=== PATIENT | female | born 2000 | race African-American/Black ===

== ENCOUNTER 2019-09-21 13:37 | Emergency (ER) | payer OTHER ==
[~2019-09-21] VITALS: Ht 167.6 cm; Wt 87.5 kg
[2019-09-21] MEDS ORDERED: LIDOCAINE 1% SDV 5 ML VIAL DILUENT ONE (14:30)
[2019-09-21] MEDS ORDERED: AZITHROMYCIN 250 MG TAB PO ONE (14:30)
[2019-09-21] MEDS ORDERED: cefTRIAXone SOD 250 MG VIAL (J0696) IM ONE (14:30)
[2019-09-21 14:39] LABS: BASO # 0.1 10^3/uL (0.0-0.2); BASO % 0.9 % (0.0-1.0); EOS # 0.1 10^3/uL (0.0-0.5); EOS % 1.2 % (0.0-3.0); HEMATOCRIT 40.7 % (36.0-47.0); LYMPH # 1.8 10^3/uL (1.5-5.0); LYMPH % 32.2 % (24.0-44.0); MEAN CORPUSCULAR HGB CONC 31.9 g/dl (32.0-36.5); MEAN CORPUSCULAR VOLUME 93.8 fl (80.0-96.0); MONO # 0.3 10^3/uL (0.0-0.8); MONO % 5.2 % (0.0-5.0); NEUTROPHILS # 3.4 10^3/uL (1.5-8.5); NEUTROPHILS % 60.2 % (36.0-66.0); PLATELET COUNT, AUTOMATED 202 10^3/uL (150-450); RED BLOOD COUNT 4.34 10^6/uL (4.00-5.40); WHITE BLOOD COUNT 5.7 10^3/uL (4.0-10.0)
[2019-09-21 14:49] LABS: APPEARANCE, URINE CLEAR (CLEAR); BACTERIA, URINE AUTO 1+ (NEGATIVE); BILIRUBIN, URINE AUTO NEGATIVE (NEGATIVE); BLOOD, URINE BLOOD NEGATIVE (NEGATIVE); COLOR, URINE YELLOW (YELLOW); GLUCOSE, URINE (UA) AUTO NEGATIVE (NEGATIVE); KETONE, URINE AUTO NEGATIVE (NEGATIVE); LEUKOCYTE ESTERASE, URINE AUTO 1+ (NEGATIVE); NITRITE, URINE AUTO NEGATIVE (NEGATIVE); PROTEIN, URINE AUTO NEGATIVE (NEGATIVE); RBC, URINE AUTO 4 /HPF (0-3); SPECIFIC GRAVITY URINE AUTO 1.016 (1.002-1.035); SQUAMOUS EPITHELIAL CELL UR AU 1 /HPF (0-6); UROBILINOGEN, URINE AUTO 0.2 mg/dL (0.0-2.0); WBC, URINE AUTO 2 /HPF (0-3)
[2019-09-21] MEDS ORDERED: metroNIDAZOLE (FLAGYL) 500 MG TAB PO ONE (15:30)
[2019-09-21] MEDS ORDERED: MACR100C43 PO (15:54)
[2019-09-21] MEDS ORDERED: IBUPROFEN 800 MG TAB PO ONE (16:00)
[2019-09-21 16:03] VITALS: BP 140/85
[2019-09-21 16:12] LABS: CHLAMYDIA DNA AMPLIFICATION POSITIVE (NEGATIVE); GC DNA AMPLIFICATION NEGATIVE (NEGATIVE)
[2019-09-23 15:52] LABS: HEPATITIS B SURFACE ANTIBODY POSITIVE (POSITIVE)
[2019-09-23 16:02] LABS: HEPATITIS B SURFACE ANTIGEN NEGATIVE (NEGATIVE)
[2019-09-23 16:31] LABS: HEPATITIS C VIRUS ABY INDEX < 0.0 INDEX (<0.8); HIV 1&2 SCREEN CENTAUR NEGATIVE (NEGATIVE)
== END 2019-09-21 16:05 | disposition home or self-care (01) ==
LOC: M ED 13:37
DX: N39.0 Urinary tract infection, site not specified (principal); A59.01 Trichomonal vulvovaginitis; F17.210 Nicotine dependence, cigarettes, uncomplicated
CPT/HCPCS: 36415; 80047; 81001; 84702; 85025; 86706; 86780; 86803; 87210; 87340; 87389; 87661; 96372; 99284; J0696

== ENCOUNTER 2019-10-17 14:37 | Emergency (ER) | payer OTHER ==
[~2019-10-17] VITALS: Ht 167.6 cm; Wt 87.4 kg
[~2019-10-17 14:37] MED LIST: MACR100C43 PO
[2019-10-17] MEDS ORDERED: KETOROLAC 60 MG/2 ML VIAL (J1885) IM ONE (17:30)
[2019-10-17] MEDS ORDERED: ACETAMINOPHEN 325 MG TAB PO ONE (17:30)
[2019-10-17 19:24] LABS: CHLAMYDIA DNA AMPLIFICATION NEGATIVE (NEGATIVE); GC DNA AMPLIFICATION NEGATIVE (NEGATIVE)
[2019-10-17 20:32] VITALS: BP 134/88
== END 2019-10-17 20:33 | disposition home or self-care (01) ==
LOC: M ED 14:37
DX: S39.012A Strain of muscle, fascia and tendon of lower back, initial encounter (principal); X58.XXXA Exposure to other specified factors, initial encounter; Y92.89 Other specified places as the place of occurrence of the external cause; F17.210 Nicotine dependence, cigarettes, uncomplicated
CPT/HCPCS: 81001; 87661; 96372; 99283; J1885

== ENCOUNTER 2020-05-10 00:39 | Emergency (ER) | payer OTHER ==
[~2020-05-10] VITALS: Ht 167.6 cm; Wt 81.8 kg
[2020-05-10 00:40] VITALS: BP 140/82
[2020-05-10] MEDS ORDERED: NS 1,000 ML IV ONE (01:00)
[2020-05-10] MEDS ORDERED: KETOROLAC 30 MG/ML 1ML VIAL IV ONE (01:15)
[2020-05-10 01:21] LABS: BASO % 0.4 % (0.0-1.0); EOS # 0.1 10^3/uL (0.0-0.5); EOS % 0.7 % (0.0-3.0); HEMATOCRIT 41.3 % (36.0-47.0); HEMOGLOBIN 13.5 g/dl (12.0-15.5); LYMPH # 2.3 10^3/uL (1.5-5.0); LYMPH % 27.1 % (24.0-44.0); MEAN CORPUSCULAR HEMOGLOBIN 30.7 pg (27.0-33.0); MEAN CORPUSCULAR HGB CONC 32.7 g/dl (32.0-36.5); MEAN CORPUSCULAR VOLUME 93.9 fl (80.0-96.0); MONO # 0.3 10^3/uL (0.0-0.8); MONO % 3.5 % (0.0-5.0); NEUTROPHILS # 5.7 10^3/uL (1.5-8.5); NEUTROPHILS % 67.9 % (36.0-66.0); PLATELET COUNT, AUTOMATED 252 10^3/uL (150-450); WHITE BLOOD COUNT 8.4 10^3/uL (4.0-10.0)
[2020-05-10 01:49] LABS: ALBUMIN 3.8 GM/DL (3.2-5.2); ALT/SGPT 24 U/L (12-78); BILIRUBIN,DIRECT 0.2 MG/DL (0.0-0.2); BILIRUBIN,TOTAL 0.5 MG/DL (0.2-1.0); BLOOD UREA NITROGEN 12 MG/DL (7-18); CALCIUM LEVEL 9.2 MG/DL (8.5-10.1); CARBON DIOXIDE LEVEL 26 MEQ/L (21-32); CHLORIDE LEVEL 108 MEQ/L (98-107); CREATININE FOR GFR 1.05 MG/DL (0.55-1.30); GLOMERULAR FILTRATION RATE > 60.0 (>60); GLUCOSE, FASTING 85 MG/DL (70-100); LIPASE 168 U/L (73-393); POTASSIUM SERUM 4.1 MEQ/L (3.5-5.1); SODIUM LEVEL 140 MEQ/L (136-145); TOTAL PROTEIN 7.6 GM/DL (6.4-8.2)
[2020-05-10 02:04] LABS: HCG, SERUM QUALITATIVE NEGATIVE (NEGATIVE)
[2020-05-10 02:48] LABS: CHLAMYDIA DNA AMPLIFICATION NEGATIVE (NEGATIVE); GC DNA AMPLIFICATION NEGATIVE (NEGATIVE)
== END 2020-05-10 02:57 | disposition home or self-care (01) ==
LOC: M ED 00:39
DX: R10.9 Unspecified abdominal pain (principal); R11.0 Nausea; N93.9 Abnormal uterine and vaginal bleeding, unspecified; Z77.098 Contact with and (suspected) exposure to other hazardous, chiefly nonmedicinal, chemicals
CPT/HCPCS: 80048; 80076; 81001; 83690; 84703; 85025; 87086; 87661; 96374; 99283; J1885

== ENCOUNTER 2020-09-09 21:17 | Emergency (ER) | payer OTHER ==
[~2020-09-09] VITALS: Ht 167.6 cm; Wt 92.2 kg
[2020-09-10 00:04] LABS: APPEARANCE, URINE CLEAR (CLEAR); BACTERIA, URINE AUTO NEGATIVE (NEGATIVE); BILIRUBIN, URINE AUTO NEGATIVE (NEGATIVE); BLOOD, URINE BLOOD NEGATIVE (NEGATIVE); COLOR, URINE STRAW (YELLOW); GLUCOSE, URINE (UA) AUTO NEGATIVE (NEGATIVE); KETONE, URINE AUTO TRACE mg/dL (NEGATIVE); LEUKOCYTE ESTERASE, URINE AUTO NEGATIVE (NEGATIVE); NITRITE, URINE AUTO NEGATIVE (NEGATIVE); PROTEIN, URINE AUTO NEGATIVE (NEGATIVE); RBC, URINE AUTO 0 /HPF (0-3); SPECIFIC GRAVITY URINE AUTO 1.014 (1.002-1.035); SQUAMOUS EPITHELIAL CELL UR AU 0 /HPF (0-6); UROBILINOGEN, URINE AUTO 0.2 mg/dL (0.0-2.0); WBC, URINE AUTO 2 /HPF (0-3)
[2020-09-10 00:41] VITALS: BP 136/82
== END 2020-09-10 00:43 | disposition home or self-care (01) ==
LOC: M ED 21:17
DX: O26.891 Other specified pregnancy related conditions, first trimester (principal); M54.5 Low back pain; Z3A.00 Weeks of gestation of pregnancy not specified

== ENCOUNTER 2020-10-15 15:21 | Emergency (ER) | payer OTHER ==
[~2020-10-15] VITALS: Ht 167.6 cm; Wt 99.8 kg
--- OUTSIDE RECORDS SUMMARY | 2020-10-15 15:29 | CCD ---
Author Author [facility] Organization [facility] Address Unknown Phone Unavailable Care Team Providers Care Compounder [employer] Name Role Phone Philip Christianson MD Unavailable Unavailable Philip Christianson MD Unavailable Unavailable Philip Christianson MD Unavailable Unavailable Philip Christianson MD Unavailable Unavailable Philip Christianson MD Unavailable Unavailable Philip Christianson MD Unavailable Unavailable Philip Christianson MD Unavailable Unavailable Philip Christianson MD Unavailable Unavailable UNKNOWN, [facility] Unavailable Unavailable CHAITANYA CHRISTIANSON MD Unavailable Unavailable Marce AVENDANO MD Unavailable Unavailable Marce AVENDANO MD Unavailable Unavailable Marce AVENDANO MD Unavailable Unavailable Marce AVENDANO MD Unavailable Unavailable Marce AVENDANO MD Unavailable Unavailable Marce AVENDANO MD Unavailable Unavailable Marce AVENDANO MD Unavailable Unavailable Marce AVENDANO MD Unavailable Unavailable Marce AVENDANO MD Unavailable Unavailable ROMANAMarce VAZQUEZ MD Unavailable Unavailable ROMANA, L KOKI WINSTON Unavailable Unavailable ROMANAMarce VAZQUEZ MD Unavailable Unavailable ROMANAMarce VAZQUEZ MD Unavailable Unavailable ROMANAMarce VAZQUEZ MD Unavailable Unavailable ROMANAMarce VAZQUEZ MD Unavailable Unavailable ROMANAMarce VAZQUEZ KOKI MD Unavailable Unavailable ROMANAMarce VAZQUEZ MD Unavailable Unavailable ROMANA, L KOKI MD Unavailable Unavailable ROMANA L KOKI Unavailable Unavailable ROMANAMarce KOKI Unavailable Unavailable ROMANA L KOKI Unavailable Unavailable ROMANAMarce MD Unavailable Unavailable ROMANA L KOKI Unavailable Unavailable Re-disclosure Warning The records that you are about to access may contain information from federally-assisted alcohol or drug abuse programs. If such information is present, then the following federally mandated warning applies: This information has been disclosed to you from records protected by federal confidentiality rules (42 CFR part 2). The federal rules prohibit you from making any further disclosure of this information unless further disclosure is expressly permitted by the written consent of the person to whom it pertains or as otherwise permitted by 42 CFR part 2. A general authorization for the release of medical or other information is NOT sufficient for this purpose. The Federal rules restrict any use of the information to criminally investigate or prosecute any alcohol or drug abuse patient.The records that you are about to access may contain highly sensitive health information, the redisclosure of which is protected by Article 27-F of the [facility] Public Health law. If you continue you may have access to information: Regarding HIV / AIDS; Provided by facilities licensed or operated by the [facility] Office of Mental Health; or Provided by the [facility] Office for People With Developmental Disabilities. If such information is present, then the following [facility] mandated warning applies: This information has been disclosed to you from confidential records which are protected by state law. State law prohibits you from making any further disclosure of this information without the specific written consent of the person to whom it pertains, or as otherwise permitted by law. Any unauthorized further disclosure in violation of state law may result in a fine or assisted sentence or both. A general authorization for the release of medical or other information is NOT sufficient authorization for further disc losure. Encounters Encounter Providers Location Date Indications Data Source(s ) Emergency Attender: Chaitanya Christianson MDAttender: CHAITANYA CHRISTIANSON MD ER-ER 10/08/2020 03:43:00 AM EST - 10/08/2020 05:29:00 AM EST [facility] Patient discharged. Emergency Attender: KOKI AVENDANO MDConsultant: MUNDO BERMUDEZ 09/18/2020 01:52:00 PM EST - 09/18/2020 04:30:00 PM EST [facility] Patient discharged. 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 (CU RRENT) USE OF ASPIRIN Diagnosis 10/08/2020 03:43:00 AM [facility] Z3A.09 9 weeks gestation of 9 WEEKS GESTATION OF CA EGNANCY Diagnosis 10/08/2020 03:43:00 AM [facility] O20.0 Threatened THREATENED Diagnosis 0 10/08/2020 03:43:00 AM [facility] O20.9 Hemorrhage in early , unspecifi ed HEMORRHAGE IN EARLY , UNSPECIFIED Diagnosis 10/08/2020 03:43:00 AM [facility] Quentin ascencio K33011 Personal history of nicotine dependence Personal history of nicotine dependence Diagnosis 09/18/2020 01:52:00 PM [facility] Z3A01 Less than 8 weeks gestation of Less than 8 weeks gestation of Diagnosis 09/18/2020 01:52:00 PM [facility] Y77801 Other specified related condit ions, first trimester Other specified related conditions, first trimester Diagnosis 09/18/2020 01:52:00 PM [facility] Results ID Date Data Source [id number] 10/08/2020 05:11:00 AM [facility] Name Value Range Interpretation Code Description Data Chayo rce(s) Supporting Document(s) CG 890980.0 mIU/mL N [facility] GESTATIONAL AGE HCG mIU/ML0.2 - 1 WEEK 5 - 501 - 2 WEEKS 50 - 5002 - 3 WEEKS 100 - 35013 - 4 WEEKS 500 - 336608 - 5 WEEKS 1000 - 965688 - 6 WEEKS 79302 - 9894721 - 8 WEEKS 59381 - 7883318 - 3 MONTHS 99598 - 717837 ADULT MALES, AGES 19 - 67 <= 1.0NON- FEMALES, AGES 18 - 62 1 - 3 ID Date Data Source [id number] 10/08/2020 04:42:00 AM EST [facility] Name Value Range Interpretation Code Description Data Chayo rce(s) Supporting Document(s) HCG QUAL SERUM Positive Negative N [facility] ID Date Data Source [id number] 10/08/2020 04:44:00 AM EST [facility] Name Value Range Interpretation Code Description Data Chayo rce(s) Supporting Document(s) URINE COLOR Yellow [facility] UAPR Clear [facility] UGLU Negative NEGATIVE [facility] URINE BILIRUBIN [facility] Negative NEGATIVE [facility] USG 1.020 1.010-1.025 [facility] UBLO 3+ NEGATIVE [facility] UpH 5.5 5.0-8.0 [facility] UPRO Negative Negative [facility] UUB 0.2 mg/dL 0.2-1.0 [facility] UNIT Negative Negative [facility] ULEU Trace Negative [facility] ID Date Data Source [id number] 10/08/2020 04:44:00 AM EST [facility] Name Value Range Interpretation Code Description Data Chayo rce(s) Supporting Document(s) URINE RBC 11-20 RBCs/HPF NONE SEEN [facility] URINE WBC 3-5 WBCs/HPF NONE SEEN [facility] URINE BACTERIA Few NONE SEEN [facility] URINE EPI. Few NONE SEEN [facility] ID Date Data Source [id number] 10/08/2020 04:26:00 AM EST [facility] Name Value Range Interpretation Code Description Data Chayo rce(s) Supporting Document(s) WBC 10.32 x10E3/uL 4.0-10.5 [facility] l RBC 4.07 x10E6/uL 4.20-5.40 [facility] Hemoglobin 12.3 g/dL 12.0-16.0 [facility] Hematocrit 36.0 % 37.0-47.0 [facility] MCV 88.5 fL 81.0-99.0 [facility] MCH 30.2 pg 27.0-31.0 [facility] MCHC 34.2 g/dL 32.7-35.6 N [facility] RDW 12.7 % 11.5-14.0 N [facility] Platelet count 202 x10E3/uL 150-450 [facility] MPV 11.9 fl 6.9-9.5 [facility] Neutrophils 75.6 % 34-64 [facility] Lymphocytes 16.3 % 25-45 [facility] Monocytes 5.3 % 1.7-10.6 [facility] Eosinophils 1.6 % 0.4-7.0 [facility] Basophils 0.6 % 0.1-2.0 [facility] Imm. Gran. 0.6 % 0.1-2.0 [facility] Abs. Neutro. 7.81 x10E3/uL 1.2-7.6 [facility] Abs. Lymph. 1.68 x10E3/uL 1.0-3.5 [facility] Abs. Weber. 0.55 x10E3/uL 0.1-1.0 [facility] Abs. Eosin. 0.16 x10E3/uL 0.1-0.7 [facility] Abs. Baso. 0.06 x10E3/uL 0.0-0.1 [facility] Abs. Imm. Gran. 0.06 x10E3/uL 0.0-0.1 N [facility] spital ANRBC% 0 % 0 N [facility] ID Date Data Source [id number] 10/08/2020 05:29:00 AM EST [facility] Physician Taco-Agustin estrada CenterName: Devante HicksAge: 20 yrsSex: FemaleDOB: 2000MRN: [id number] Date: 10/08/2020Time: 03:43Account#: [id number] 9Private WINSTON: Out of town provider, -ED Physician Bright Christianson Summary:10/08/20 05:17Discharge OrderedLocation: Home Self Care ke3Qsdggre: new iq2Vydbtcqw: have improved id0Edaeyvusp: Improved ab0Ylisftluz- Threatened os9Dodeskna: th4- With: Private Physician- When: 2 - 3 days- Reason: Recheck today's complaints, Continuance of careDischarge Instructions:- Discharge Summary Sheet th4- , Threatened tp3Goitk:- Medication Reconciliation 4- Medication Reconciliation Form - 2nd Copy thHPI:09/2803:08 This 20 yrs old Black Female presents to ER via Private Vehicle with ow1cajrsdyxjx of Vaginal Bleeding.04:08 Patient comes the ER today for evaluation of vaginal bleeding that ht5zsogorg just prior to arrival. She describes the blood is dark.Patient is currently . She is a at approximately 9weeks. She reports that [facility] and was told everythingwas otherwise normal. 2 heartbeats were heard per the patient.Patient reports her lower back pain as well as some lower abdominalcramping. Denies any nausea or vomiting. No fever or recent illness.No recent injury or trauma. She is feeling a little short of breath.Denies any chest pain. No urinary symptoms. No diarrhea. Deniesfeeling weak or dizzy. She reports that her blood type is B+. Shedenies any other problems or any other complaints..TOOLING SPECIALIST:04:02 1, Full Term 0, Premature 0, 0, Living 0, LMP 08/08/2020Historical:- Allergies: No known Allergies;- Home Meds:1. Vitamin Oral2. Aspirin Oral- PMHx: None;- PSHx: None;- Immunization history: Flu vaccine is up to date.- Social history: Smoking status: Patient states former smoker oftoHomeAwayo. ETOH status Denies use of ETOH.- Advance Directives:: None.ROS:04:10 Constitutional: Negative for chills, fever. Eyes: Negative for acute qc8vjxcrau. ENT: Negative for nasal discharge, rhinorrhea, sinuscongestion. Neck: Negative for acute changes. Cardiovascular:Negative for chest pain. Respiratory: Positive for shortness ofbreath. Abdomen/GI: Positive for abdominal pain, abdominal cramps,Negative for nausea, vomiting, diarrhea, constipation. Back: Positivefor pain at rest. Positive for vaginal bleeding, Negative forurinary symptoms. MS/extremity: Negative for acute changes. Skin:Negative for rash. Neuro: Negative for dizziness, headache, weakness.Hematologic/Lymphatic: Positive for abnormal bleeding.Exam:04:11 Constitutional: This is a well developed, well nourished patient who th4is awake, alert, and in no acute distress. Head/Face: Normocephalic,atraumatic.04:11 Neck: External neck: is normal, ROM/movement: is normal, is supple.04:11 Cardiovascular: Rate: normal, Rhythm: regular, Heart sounds: normal,normal S1and S2, no murmur.04:11 Respiratory: the patient does not display signs of respiratorydistress, Respirations: normal, Breath sounds: are normal, clearthroughout.04:11 Abdomen/GI: Bowel sounds: normal, Palpation: abdomen is soft andnon-tender, in all quadrants.04:11 Back: pain, that is very mild, ROM is normal, CVA tenderness, isabsent.04:11 Musculoskeletal/extremity: Extremities: no acute changes.04:11 Skin: Appearance: Color: normal in color, Temperature: warm,Moisture: dry.04:11 Neuro: Orientation: is normal, Mentation: is normal.04:11 Psych: Behavior/mood is pleasant, cooperative.04:32 : Pelvic Exam: External exam: is normal, Speculum exam: scant ox2ztndragf, no cervicitis, os that is closed, bimanual exam reveals nocervical motion tenderness, os that is closed, the nurse was presentfor the exam.Vital Signs:03:50 BP 169 / 90; Pulse 72; Resp 18; Temp 98.7; Pulse Ox 98% on R/A; fwWeight 96.6 kg (M); Height 5 ft. 6 in. (167.64 cm); Pain 4/10;05:25 BP 138 / 78 RA Sitting (auto/reg); Pulse 71; Resp 16; Temp 98.4; fwPulse Ox 99% on R/A; Pain 1/10;03:50 Body Mass Index 34.37 (96.60 kg, 167.64 cm) fwMDM:03:46 Patient medically screened. th405:17 Data reviewed: vital signs, nurses notes, lab test result(s). ED rp0zkwgxy: Patient remained stable in the ER. Patient with bleeding inearly consistent with threatened miscarriage. Lab work inthe ER is all reassuring. No evidence of UTI. Quantitative hCG isover 107,000. Patient has had an ultrasound during this pregnancylast week and was found to have a viable IUP with twin gestation.Pelvic exam is reassuring. No further work-up or treatment is neededat this time. She is appropriate for discharge. She will follow upwith her TOOLING SPECIALIST. We discussed return precautions. Patient iswell-appearing, well-hydrated, not ill or toxic in any way. Bloodtype is B+..09/2802:58 Order name: CBC with diff; Complete Time: 04:32 :58 Order name: SHCG; Complete Time: ::58 Order name: UA; Complete Time: ::58 Order name: Saline Lock; Complete Time: 04::58 Order name: Set Up Pelvic Exam; Complete Time: ::58 Order name: Quantitave HCG; Complete Time: 05:12 [id number] Medications:No medications were administeredSignatures:Dispatcher [employer] Chaitanya Kim MD MD hu6LewlRashard RN RN fw Name Value Range Interpretation Code Description Data Chayo rce(s) Supporting Document(s) ID Date Data Source [id number] 10/08/2020 05:29:00 AM EST [facility] Kelly terName: Devante YanezksAge: 20 yrsSex: FemaleDOB: 2000MRN: [id number] Date: 10/08/2020Time: 03:43Account#: [id number] 9Prmalaika WINSTON: Out of town provider, -Diagnosis: Threatened abortionPresentation:09/2802:44 Presenting complaint: Patient states: "I woke up to use the bathroom fwand when I wiped there was a lot of blood dropping in the toilet Esdras am 9 weeks ". Coronavirus Screening: Have you traveledinternationally or had contact with someone that has traveled and hasbeen ill in the past 3 weeks? no Have you traveled to a location wi thwidespread or ongoing COVID-19 community spread or outside of [facility]? no Flu- like symptoms reported in the last 14 days: no. Haveyou had close contact with confirmed or suspected COVID-19 case? noHave you been diagnosed with COVID-19 in the past 30 days? no Are youcurrently on quarantine by Public Health? no. Communicable DiseaseScreen: Negative for fever>/= 100 degrees Fahrenheit. Communicabledisease screen is negative. (-) rash or unusual skin lesion (- )travel/contact with traveler (-) respiratory symptoms.03:44 Acuity: Triage 3 fw03:44 Method Of Arrival: Private Vehicle fw03:45 Acuity Assignment: Triage 3 fwTriage Assessment:03:48 General: Appears uncomfortable, well nourished, well groomed, fwBehavior is anxious, cooperative, crying, pleasant, restless. SepsisScreening: (1)Signs/symptoms infection Sepsis is not suspected. Pain:Complains of pain in lumbar area, left low back and right low backPain currently is 4 out of 10 on a pain scale. Quality of pain isdescribed as aching, Pain began 1 hour ago. PSS-3 Now I'm going toask you some questions that we ask everyone treated here, no matterwhat problem they are here for. It is part of the hospital's policyand it helps us to make sure we are not missing anything important.Over the past 2 weeks, have you felt down, depressed, or hopeless?No. Over the past 2 weeks, have had thoughts of killing yourself? No.In your lifetime, have you ever attempted to kill yourself? No. Derm:Skin is intact, Skin is pink, warm & dry. Neuro: Level ofConsciousness is awake, alert, Oriented to person, place, time.Respiratory: Airway is patent Respiratory effort is even, unlabored.GI: Reports nausea, Denies diarrhea, vomiting. : Reports vaginalbleeding that is "really dark red and enough for me to feelconcerned". Musculoskeletal: Circulation, motion, and sensationintact Range of motion intact in all extremities.TOOLING SPECIALIST:04:02 1, Full Term 0, Premature 0, 0, Living 0, LMP 08/08/2020Historical:- Allergies: No known Allergies;- Home Meds:1. Vitamin Oral2. Aspirin Oral- PMHx: None;- PSHx: None;- Immunization history: Flu vaccine is up to date.- Social history: Smoking status: Patient states former smoker oftobacco. ETOH status Denies use of ETOH.- Advance Directives:: None.Screenin:53 Abuse screen: Denies threats or abuse. Denies injuries from another. fwNutritional screening: No deficits noted. Offer of HIV testing:patient was previously offered screening. Fall Risk None identified.Assessment:03:57 Reassessment: see triage assessment. fw04:33 Reassessment: No changes from previously documented assessment. fwVital Signs:03:50 BP 169 / 90; Pulse 72; Resp 18; Temp 98.7; Pulse Ox 98% on R/A; fwWeight 96.6 kg (M); Height 5 ft. 6 in. (167.64 cm); Pain 4/10;05:25 BP 138 / 78 RA Sitting (auto/reg); Pulse 71; Resp 16; Temp 98.4; fwPulse Ox 99% on R/A; Pain 1/10;03:50 Body Mass Index 34.37 (96.60 kg, 167.64 cm) fwED Course:03:43 Patient arrived in ED. fw03:43 Out of town provider, - is Private Physician. fw03:45 Triage completed. fw03:46 Chaitanya Christianson MD is Attending Physician. th403:53 Patient has correct armband on for positive identification. Placed in fwgown. Bed in low position. Call light in reach. Side rails up X 1.Pulse ox on. NIBP on. Verbal reassurance given. Pillow given. Head ofbed elevated.04:01 Rashard Canada RN is Primary Nurse. fw04:25 Labs drawn. (by ED staff). Urine collected. Clean catch specimen. fwInserted saline lock: 20 gauge in left wrist and blood collected.05:21 No Physician assisted procedures completed. Discontinued lock intact, fwbleeding controlled, pressure dressing applied, No redness/swellingat site.Administered Medications:No medications were administeredOutcome:05:17 Discharge ordered by . th405:22 Disposition: Discharged to home ambulatory. fw05:22 Condition: stable, Condition: bncuzcjk88:22 Discharge instructions given to patient, Instructed on dischargeinstructions, follow up and referral plans. medication usage.05:22 Discharge Assessment: Patient verbalized understanding of dispositioninstructions. Patient has no functional deficits.05:29 Patient left the ED. fwSignatures:Chaitanya Christianson MD MD on7Zqxy, MAXINE Wetzel RN Name Value Range Interpretation Code Description Data Chayo rce(s) Supporting Document(s) ID Date Data Source [id number] 09/21/2020 09:58:00 [place] [address] PHONE: [phone] FAX: [phone] Name .................. : MI Zheng Acct Number.................. : [id number] ROOM. ................. : TR-02 MR Number ................... : [id number] Stay type ............. : E/R Discharge Date......... ... : 09/18/20 Admit Date .... ..... : 09/18/20 Admit Phys .................... : COONEYNORM Date of ....... : 2000 Family Phys ................... : UNKNOWN Phone .................. : [phone] Age ................................ : 20 Film# .................. .:[id number] Sex ................................. : F Unsigned transcriptions are preliminary reports and do not represent a medical or legal document [place] [id number] COMPLETE:09/18/20 19:06 BAW 1801 Reason(s): vi ability ectopic TRANSVAGINAL OBSTETRICAL ULTRASOUND: INDICATION: , viability, ectopic. FINDINGS: There are 2 anechoic structures identified within the uterus. The first is in the right of the midline and has a mean sac diameter measuring 0.8 cm. No evidence of a pole or a yolk sac is identified at this time. Number 2 is on the left side of midline and has a mean sac diameter measuring 1 cm. A yolk sac is suspected, measuring 0.3 cm. No clear evidence of a pole is identified. No free fluid is identified. There is a corpus luteum in the right ovary measuring 2.5 x 1.6 x 1.6 cm. Cervical length measures 35 mm. The gestation corresponds to approximately 5 weeks 0 days of gestation. The uterus measures 4.7 x 5.3 x 7.6 cm. The right ovary measures 3.9 x 2.8 x 3.6 cm. The left ovary measures 3.0 x 1.5 x 1.8 cm. IMPRESSION: Two anechoic structures within the endometrium. The first is to the right of midline with a mean sac diameter of 0.8 cm. The second is left of the midline, measuring 1.0 cm. The findings suggest possible early gestation of twins. Gestational age would be approximately 5 weeks 0 days. pole and cardiac activity is not identified at this time. Underlying ectopic is not excluded. Continued follow up with hCG levels and serial sonography is recommended. Examination dictated by TAJ Kent. Examination was reviewed with Bravo Sterling MD, radiologist at the time of this dictation. Electronically Reviewed and Signed By Page 1 of 2 [facility] [address] [place] [address] [place] [address] PHONE: [phone] FAX: [phone] Name .................. : MI Zheng Acct Number.................. : [id number] ROOM. ................. : TR-02 MR Number ................... : [id number] Stay type ............. : E/R Discharge Date......... ... : 09/18/20 Admit Date ......... : 09/18/20 Admit Phys .................... : COONEYNORM Date of ....... : 2000 Family Phys ................... : UNKNOWN Phone .................. : [phone] Age ................................ : 20 Film# .................. .:[id number] Sex ................................. : F Unsigned transcriptions are preliminary reports and do not represent a medical or legal document [place]AL U [id number] COMPLETE:09/18 19:06 BAW 1801 Reason(s): viability ectopic Bravo Sterling M.D. , 09/21/20 09:58, [place] Transcribe Initials: SAMAN , Transcribe Date: 09/19/20 02:55, Dictation Date: Copy for: TARA KA[facility] via fax Copy for: EMERGENCY DEPT via modem Copy for: 710 MED REC DISCHARGED Page 2 of 2 Name Value Range Interpretation Code Description Data Chayo rce(s) Supporting Document(s) ID Date Data Source [id number] 09/18/2020 01:52:00 PM EST [facility] 1 OrderSheet [facility] Emergency Department [address] [place] [address] Phone #: ext- [phone] 09/18/2020 13:40 Patient: DEVANTE STARK Sex: F : 2000 Age: 20yWEIGHT:87.5 kg (S) HEIGHT:66 inches (S) BMI:31.2ALLERGIES: NoneDIAGNOSIS: Patient currently LAB ORDERSOrder Description Priority Entered Acknowledged InitialedCBC w Diff STAT 14:09/18/2020 14:44 Maged THOMAS;Chlamydia/GC STAT 14:09/18/2020 14:44 Maged THOMAS; NOTES: urineCMP STAT 14:09/18/2020 14:44 Maged THOMAS;Culture, Urine STAT 14:09/18/2020 14:43 Maged(Urine, Clean Puneet López) TAJ;Type Rh STAT 14:09/18/2020 14:44 Maged THOMAS;Urinalysis (Clean STAT 14:09/18/2020 14:43 LoganCatch) Puneet THOMAS;Beta-HCG, Quant STAT 14:07 09/18/2020 14:44 LoganSerum Puneet THOMAS;DIAGNOSTIC STUDY ORDERSOrder Description Priority Entered Acknowledged InitialedUS OB STAT 15:10 09/18/2020 Ack'd: 15: 23 15:37 Juliocesar,TRANSVAGINAL Puneet Gandara, Kinga Donato RMargauxNMargaux KAIBAB TAJ; R.N.(IV?(No))(Oxygen?(No)) Reason for Study: viability ectopicMEDICATION/IV/DRIP/FLUID ORDERS 2 OrderSheet [facility] Emergency Department [address] [place] [address] Phone #: ext- [phone] 09/18/2020 13:40 Patient: DEVANTE STARK Sex: F : 2000 Age: 20yOrder Description Priority Entered Acknowledged InitialedGENERAL ORDERSOrder Description Priority Entered Acknowledged InitialedNPO 14:07 09/18/2020 14:43 Maged THOMAS;[Electronically signed by Julissa Bolden R.N. (16:29 09/18/2020)][Electronically signed by Puneet Mercado (21:21 09/18/2020)][Electronically locked by Julissa Bolden R.N. (16:29 09/18/2020)] Name Value Range Interpretation Code Description Data Chayo rce(s) Supporting Document(s) ID Date Data Source [id number] 09/18/2020 01:52:00 PM EST [facility] 1 Medication Reconciliation Report [facility] Emergency Department [address] [place] [address] Phone #: ext- [phone] 09/18/2020 13:40 Patient: DEVANTE STARK Sex: F : 2000 Age: 20yWeight: 87.5 kgHeight/Length: 66 in.BMI: 31.2ALLERGIES: NoneThe patient's Home Medications are listed below:NONE.The source(s) of the original Home Medication information:Not obtained.The following Medications were given to the patient in the Emergency Department:None.The following Medications were prescribed to the patient:None. Name Value Range Interpretation Code Description Data Chayo rce(s) Supporting Document(s) ID Date Data Source [id number] 09/18/2020 01:52:00 PM [place] [address] Medication Administration Record [facility] Emergency Department [address] [place] [address] Phone #: ext- [phone] 09/18/2020 13:40 Patient: DEVANTE STARK Sex: F : 2000 Age: 20yWeight: 87.5 kgHeight/Length: 66 inBMI: 31.2ALLERGIES: NoneDate/Time Medication Administered Medication Ordered Name Value Range Interpretation Code Description Data Chayo rce(s) Supporting Document(s) ID Date Data Source [id number] 09/18/2020 01:52:00 PM [place] [address] General Instructions [facility] Emergency Department [address] [place] [address] Phone #: ext [phone] 09/18/2020 13:40 Patient: DEVANTE STARK Sex: F : 2000 Age: 20yFirst trimester ; positive test in emergency department. Ultrasound was performed butcould not determine the location of the .INSTRUCTIONSWarnings: Further evaluation is necessary in order to conduct further tests. It is very important to follow upwith a healthcare provider.GENERAL WARNINGS: Return or contact your physician immediately if your condition worsens orchanges unexpectedly, if not improving as expected, or if other problems arise. Specifically return ifbleeding.Your Current Medications: .No home medication.Follow-up:Follow up with your doctor Monday. Reason for referral: evaluation and repeat Beta HCG today it was11,181, repea US when Indicated. Summary of care provided to patient.Understanding of the discharge instructions verbalized by patient. ADDITIONAL INFORMATIONPregnancy 2 General Instructions [facility] Emergency Department [address] [place] [address] Phone #: ext- [phone] 09/18/2020 13:40 Patient: DEVANTE STARK Sex: F : 2000 Age: 20yYour exam today shows that you are . symptomsDuring your body's hormones change. This causes physical and emotional changes. Thisis normal. Knowing what to expect is important for your piece of mind and so you know when to seekhelp for a problem. Here are some of the most common symptoms: Morning sickness or nausea. This can happen any time of the day or night. Tender, swollen breasts Need to urinate frequently Tiredness or fatigue Dizziness Indigestion or heartburn Food cravings or t urn-offs Constipation Emotional changes. This can range from anxiety to excitement to depression.General care for a healthy pregnancyHere are things you can do to help make sure your baby is born healthy: 3 General Instructions [facility] Emergency Department [address] [place] [address] Phone #: ext- [phone] 09/18/2020 13:40 [id number] Sex[facility] F : 2000 Age: 20y Rest when you feel tired. This is especially true in the later months of . Drink more fluids. Your body needs more fluids than you may be used to. Drink 8 to10 glasses of juice, milk, or water every day. Eat well-balanced meals. Eat at regular times to give your body enough protein. You can expect to gain about 30 pounds during the . Don't try to diet or lose weight while you are . Take a vitamin every day. This helps you meet the extra nutritional needs of . Don't take any other medicine during your unless your healthcare provider tells you to. This includes prescription medicines and those you buy over the counter. Many medicines can harm the growing baby. If you have nausea or vomiting, don't eat greasy or fried foods. Eat several smaller meals throughout the day rather than 3 large meals. If you smoke, you must stop. The nicotine you breathe in goes right to the baby. Stay away from alcohol, even in moderate amounts. Daily drinking will harm your baby and can cause permanent brain damage. Don't use recreational drugs, especially cocaine, crack, and heroin. These will harm your baby. Also avoid marijuana. If you were using recreational drugs or prescribed medicine when you found out that you were , talk with your healthcare provider about possible effects on your growing baby. If you have medical problems that you need to take medicine for, talk with your healthcare provider.Follow-up careCall your healthcare provider to arrange for care. care is important. You can seeyour family provider, a specialist (stitch separator), a midwi fe, or a primary care clinic.When to seek medical adviceCall your healthcare provider right away if any of these occur: Vaginal bleeding Pain in your belly (abdomen) or back that is moderate or severe Lots of vomiting, or you can't keep any fluids down for 6 hours 4 General Instructions [facility] Emergency Department [address] [place] [address] Phone #: ext- [phone] 09/18/2020 13:40 Patient: DEVANTE STARK Sex: F : 2000 Age: 20y Burning feeling when you urinate Headache, dizziness, or rapid weight gain Fever Vision changes or blurred vision [id number] [place] [address]. All rights reserved. This information is not intended as asubstitute for professional medical care. Always follow your healthcare professional's instructions. You have been given the following additional information: , New Dx(Electronically signed by TAJ Domingo 09/18/2020 21:21) Name Value Range Interpretation Code Description Data Chayo rce(s) Supporting Document(s) ID Date Data Source [id number] 09/18/2020 01:52:00 PM EST [facility] 1 Clinical Report - Nurses [facility] Emergency Department [address] [place] [address] Phone #: ext- [phone] 09/18/2020 13:40 Patient: DEVANTE STARK Sex: F : 2000 Age: 20yTRIAGEArrived by private vehicle. Historian: patient. Accompanied by family. ( pt is 6 weeks , nothaving any symptoms where she was having swelling of breast and other symptoms, called obbut she cannot be seen until oct).Acuity: LEVEL 4.Chief Complaint: (not having any symptoms).Alert.Onset. (3 days ago). 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 SEPSIS SCREEN NEGATIVE. No suspected or confirmedsigns of infection present. --13:50 09/18/20 Julissa Bolden R.N.13:44 09/18/20. BP: 134/81. MAP: 98. HR: 63. RR: 16. O2 saturation: 100%. Temp: 97.3 F. Pain levelnow: 0/10. --13:50 09/18/20 Julissa Bolden R.N.Weight: 87.5 kg stated. Height/Length: 66 inches Per Patient. BMI: 31.2. --13:43 09/18/20 Julissa Bolden R.N.MedicationsNone. --13:46 09/18/20 Julissa Bolden R.N.AllergiesNone. --13:46 09/18/20 Julissa Bolden R.N.PROBLEMS:Ovarian Cyst.STD - S exually Transmitted Disease. --13:47 09/18/20 Julissa Bolden R.N.HistoryPAST MEDICAL HX: Immunizations: up-to-date. Last normal menstrual period- Aug 06. Currently. confirmed with serum test. G 1. P 0. Ab 0. OB history: G 1; P 0; Ab 0.SOCIAL HX: Smoker- current status unknown (quit 6 weeks ago). Occasional alcohol use. No drug use.The patient was offered HIV testing but declined and hepatitis C testing but declined. The patient has nottraveled outside the [place]Infectious disease exposure: No infectious disease exposure. Patient is not a known carrier of hepatitis,HIV, MRSA, VRE or CRE. 2 Clinical Report - Nurses [facility] Emergency Department [address] [place] [address] Phone #: ext- [phone] 09/18/2020 13:40 Patient: DEVANTE STARK Sex: F : 2000 Age: 20y SELF HARM ASSESSMENT: Self harm assessment was performed. The patient answered "no" to the question(s) "Have you recently felt down, depressed, or hopeless?", "Do you have thoughts of harming or killing yourself?", "Do you have a plan for harming or killing yourself?", "Have you recently had thoughts about harming or killing others?", "Do you have any dangerous items in your possession?", "Have you noticed less interest or pleasure in doing things?", "Are you here because you tried to hurt yourself?" and "Have you ever tried to hurt yourself before today?". ABUSE ASSESSMENT: Abuse assessment. Abuse denied. No suspicion of abuse. No report of abuse. NUTRITIONAL RISK ASSESSMENT: The nutritional risk assessment revealed no deficiencies. FUNCTIONAL ASSESSMENT: Functional assessment: no impairments noted. LEARNING NEEDS ASSESSMENT: The learning needs assessment revealed no barriers. FALL RISK ASSESSMENT: Fall risk assessment completed. No risk factors identified. SKIN INTEGRITY ASSESSMENT: Skin integrity risk assessment completed. No skin integrity risk identified. --13:50 09/18/20 Julissa Bolden R.N. Interventions Identification band on patient. To treatment room. --13:50 09/18/20 Julissa Bolden R.N.PHYSICAL ASSESSMENTGENERAL / NEURO / PSYCH: Alert. Oriented X 4. Appears in no acute distress.HEENT: Mucous membranes are pink.RESPIRATORY: Respirations not labored. Breath sounds within normal limits.CVS: Normal heart rate and rhythm. Capillary refill less than 2 seconds.GI / : Abdomen soft and nontender. Bowel sounds within normal limits. No emesis noted. Novaginal bleeding. ( denies any cramping/bleeding).EXTREMITIES: No lower extremity edema.SKIN: Skin is warm and dry. --13:57 09/18/20 Kinga Gandara R.N.NURSING PROGRESS NOTESPatient gowned. Reassurance given. Two patient identifiers checked. Call light placed in reach. Siderails up x 2. Bed placed in lowest position. Brakes of bed on. Patient ready for evaluation. --13:511 Julissa Bolden R.N. late entry - 14:35 09/18/20. Taj edmonds. Reassurance given. Rounding: Position: states comfortable. Proximity of possessions / care items: call light within easy reach. Set expectations: advised patient of rounding protocol timing and asked if they needed anything else at this time. The patient reports no complaints and she is calm and resting quietly. Three patient identifiers 3 Clinical Report - Nurses [facility] Emergency Department [address] [place] [address] Phone #: ext- [phone] 09/18/2020 13:40 Patient: DEVANTE STARK Sex: F : 2000 Age: 20y checked. Call light placed in reach. Side rails up x 2. Bed placed in lowest position. Brakes of bed on. --15:26 09/18/20 Kinga Gandara R.N. Patient returned from sonogram by wheelchair with mask and emg technician. --15:41 09/18/20 Kinga Gandara R.N. 15:45 09/18/20. BP: 138/60. MAP: 86. HR: 62. RR: 16. O2 saturation: 99% on room air. --15:45 09/18/20 Kinga Gandara R.N.DISPOSITION / DISCHARGE No learning barriers present. Patient verbalized understanding. ( follow up with md for repeat beta). Written instructions not provided in [place]. The patient was discharged home and accompanied by family. She left ambulatory and via private vehicle. Family member driving. --16:29 09/18/20 Julissa Bolden R.N. 16:28 09/18/20. BP: 132/74. MAP: 93. HR: 60. RR: 18. O2 saturation: 99%. Temp: 98.2 F. Pain level now: 0/10. --16:29 09/18/20 Julissa Bolden R.N. Departure time: 16:29 09/18/2020. --16:29 1/8/21 Julissa Bolden R.N.Locked/Released at 09/18/2020 16:29 by Julissa Bolden R.N. Name Value Range Interpretation Code Description Data Chayo rce(s) Supporting Document(s) ID Date Data Source [id number] 09/18/2020 01:52:00 PM EST [facility] 1 Clinical Report - Physicians/Mid Levels [facility] Emergency Department [address] [place] [address] Phone #: ext- [phone] 09/18/2020 13:40 Patient: DEVANTE STARK Sex: F : 2000 Age: 20y Time Seen: 14:00 09/18/2020. Arrived- By private vehicle. Historian- patient.HISTORY OF PRESENT ILLNESS Chief Complaint: concerns. This started 2 days ago and is still present. It was gradual in onset and has been constant. No contractions, pelvic pain, vaginal bleeding or complaint of leakage of fluid. Last normal menstrual period- Aug 06. (pt is 6 weeks , not having any symptoms where she was having swelling of breast and other symptoms, called ob but she cannot be seen until oct). Similar symptoms previously. None. Recent medical care: Not recently seen/assessed.REVIEW OF SYSTEMSNo nausea, vomiting, diarrhea, black stools or bloody stools. No headache, double vision, faintingepisodes, fever or eye discomfort. No eye discharge, sore throat, cough, difficulty breathing or chest pain.No skin rash, enlarged lymph nodes, chills or joint pain.PAST HISTORYG 1; P 0. Problems: . Ovarian Cyst. STD - Sexually Transmitted Disease. Medications: None. Allergies: None.SOCIAL HISTORYFormer smoker. No alcohol use or drug use.PHYSICAL EXAMVital Signs: 09/18/2020 13:44 BP: 134/81. MAP: 98. HR: 63. RR: 16. O2 saturation: 100%. Temp: 97.3 F.Pain level now: 0/10. Have been reviewed as normal. Oxygen saturation normal. 2 Clinical Report - Physicians/Mid Levels [facility] Emergency Department [address] [place] [address] Phone #: ext- [phone] 09/18/2020 13:40 Patient: DEVANTE STARK Sex: F : 2000 Age: 20y Appearance: Alert. Oriented X3. No acute distress. HEENT: Normal external inspection. ENT: Pharynx normal. Neck: Neck supple. CVS: Heart sounds normal. Respiratory: No respiratory distress. Breath sounds normal. Abdomen: Soft and nontender. Bowel sounds normal. No mass. Back: Normal external inspection. Skin: Skin warm and dry. Normal skin color. No rash. Normal skin turgor. Extremities: No pathologic edema. Neuro: Oriented X 3.LABS, X-RAYS, AND EKGLaboratory Tests: Laboratory tests have been ordered, with results reviewed and considered in themedical decision making process. CBC w Diff: (ROOPA: 09/18/2020 14:14) ( MsgRcvd 09/18/2020 14:35) Final results Test Result Flag Units (Reference) CBC W/AUTOMATED DIFF COMPLETE BLOOD COUNT WBC 6.8 10/uL (4.2 - 11.0) RBC 4.23 10/uL (4.20 - 5.40) HEMOGLOBIN 13.0 g/dL (12.0 - 16.0) HEMATOCRIT 38.2 % (37.0 - 47.0) MCV 90.3 fL (81.0 - 101) MCH 30.7 pg (27.0 - 34.0) MCHC 34.0 g/dL (31.0 - 36.0) RDW 12.5 % (11.5 - 14.5) PLATELETS 214 10/uL (150 - 450) MPV 10.9 H fL (7.4 - 10.4) NEUT 68.3 % (37.0 - 80.0) LYMPH 22.9 L % (25.0 - 40.0) MONO 6.9 % (3.0 - 8.0) EOS 0.9 % (0.0 - 7.0) BASO 0.6 % (0.0 - 2.5) %IG 0.4 H % (0.0 - 0.0) %NRBC 0.0 % (0.0 - 0.0) #NEUT 4.64 10/uL (2.00 - 6.90) #LYMPH 1.56 10/uL (0.60 - 3.40) #MONO 0.47 10/uL (0.00 - 0.90) #EOS 0.06 10/uL (0.00 - 0.70) #BASO 0.04 10/uL (0.00 - 0.20) #IG 0.03 10/uL (0.00 - 0.10) #NRBC 0.00 10/uL (0.00 - 0.00) MANUAL DIFF SEE BELOW SEGS 74 % (37 - 80) %LYMPH 22 L % (25 - 40) %MONO 4 % (3 - 8) RBC MORPH SEE BELOW ANISO 1+ A (NORMAL: NONE { SICKLE CELL (NORMAL: NONE SEEN ) PLT EST NORMAL (NORMAL: KOKI COMMENT: 3 Clinical Report - Physicians/Mid Levels [facility] Emergency Department [address] [place] [address] Phone #: [phone] ybj- [phone] 09/18/2020 13:40 Patient: DEVANTE STARK Sex: F : 2000 Age: 20y CMP: (ROOPA: 09/18/2020 14:14) ( MsgRcvd 09/18/2020 15:09) Final results Test Result Flag Units (Reference) COMPREHENSIVE METABOLIC PANEL COMPREHENSIVE METABOLIC PANEL SODIUM 132 L mEq/L (134 - 153) POTASSIUM 4.1 mEq/L (3.6 - 5.0) CHLORIDE 100 mEq/L (98 - 107) CO2 25 MEQ/L (22 - 30) GLUCOSE 98 MG/DL (65 - 110) BUN 8 MG/DL (7 - 21) CREATININE 0.7 MG/DL (0.7 - 1.5) BUN/CREAT 11 (8 - 27) TOTAL PROTEIN 6.7 G/DL (6.3 - 8.2) ALBUMIN 4.3 G/DL (3.9 - 5.0) GLOBULIN 2.4 GM/DL (2.4 - 3.2) A/G RATIO 1.8 (0.8 - 2.0) CALCIUM 9.4 MG/DL (8.4 - 10.2) TOTAL BILI <0.7 MG/DL (0.2 - 1.3) ALKALINE PHOS 48 U/L (38 - 126) SGOT/AST 12 U/L (5 - 40) SGPT/ALT 13 U/L (7 - 56) ANION GAP 7.0 L mmol/L (8.0 - 16.0) AGE 20 yrs NON-AA GFR >60 mL/min AFR AMER GFR >60 mL/min Male GFR Interprentation 20-49 yrs >60 mL/min Wjcjrw53-00 yrs >56 mL/min Normal 60-69 yrs >49 mL/min Normal 70-79yrs>42 mL/min Normal 80 and above >35 mL/min Normal Female GFRInterpretation 20-39 yrs >60 mL/min Normal 40-49 yrs >58 mL/minNormal 50-59 yrs >51 mL/min Normal 60-69 yrs >45 mL/min Dqzgoc08-40 yrs >39 mL/min Normal 80 and above >32 mL/min NormalType Rh: (ROOPA: 09/18/2020 14:14) ( MsgRcvd 09/18/2020 15:40) Final results Test Result Flag Units (Reference) ABO GROUP B RH TYPE POSITIVE { ABO/RH REENTER B POSITIVEUrinalysis: (ROOPA: 09/18/2020 14:14) ( MsgRcvd 09/18/2020 15:57) Final results Test Result Flag Units (Reference) URINALYSIS URINALYSIS SOURCE R COLOR yellow (NORMAL: Yello CLARITY hazy (NORMAL: Clear SPEC GRAVITY 1.015 (1.001 - 1.030 pH 6 (5 - 9) GLUCOSE NORM (NORMAL: Negat BILIRUBIN NEG (NORMAL: Negat KETONE NEG (NORMAL: Negat PROTEIN NEG (NORMAL: Negat NITRITE NEG (NORMAL: Negat 4 Clinical Report - Physicians/Mid Levels [facility] Emergency Department [address] [place] [address] Phone #: ext- [phone] 09/18/2020 13:40 Patient: DEVANTE STARK Sex: F : 0 2000 Age: 20y BLOOD NEG (NORMAL: Negat LEUK EST 500 A (NORMAL: Negat UROBILINOGEN NOR (less than 1.0 MICROSCOPIC See Below WBC 3 - 5 (NORMAL: NONE RBC 1 - 3 (NORMAL: NONE EPITHELIAL MODERATE A (NORMAL: NONE BACTERIA 1+ SMALL (NORMAL: NONE Beta-HCG, Quant Serum: (ROOPA: 09/18/2020 14:14) ( MsgRcvd 09/18/2020 15:09) Final results Test Result Flag Units (Reference) HCG QUANT 58791.0 mIU/mL Interpretation: Less than 5 mU/mL: Negative 6-10 mU/mL: Borderline (suggest repeat in 48 hours) >10: Positive Approx HCG range (mU/mL) Weeks post LMP 5.4-708 mU/mL 3-4 Weeks 217-28274 mU/mL 5-6 Weeks 4059-431508 mU/mL 7-8 Weeks 21447-208952 mU/mL 9-10 Weeks 54532-33650 mU/mL 12-14 Weeks 45084-66277 mU/mL 15-16 Weeks 8240-47709 mU/mL 17-18 Weeks . Note - Tests: (OB US- 2 anechoic structures within the endometrium. First is right of midline with a mean sac diameter of 0.8 cm. Second is left of midline measuring 1.0 cm. Findings suggest possible early gestation of twins. Gestational age would be approximately 5 weeks and 0 days. pole and cardiac activity is not identified at this time. Underlying ectopic is not excluded. Continued follow-up with hCG levels and serial sonography is recommended.).PROGRESS AND PROCEDURESCourse of Care: 16:Sep 18 2020. Evaluation after observation. (Discussed US, labs and pt isagreeable with dx and tx plan. Close follow up with PB and repeat HCG levels.). Patient counseled in person regarding the patient's stable condition, test results, diagnosis and need for follow-up. Patient agrees with plan of care. 16:17 Sep 18 2020. Disposition: Discharged home in good and improved condition (16:18 Sep 18 2020).CLINICAL IMPRESSION First trimester ; positive test in emergency department. Ultrasound was performed but could not determine the location of the .INSTRUCTIONS Warnings: Further evaluation is necessary in order to conduct further tests. It is very important to follow up with a healthcare provider. GENERAL WARNINGS: Return or contact your physician immediately if your condition worsens or changes unexpectedly, if not improving as expected, or if other problems arise. Specifically return if 5 Clinical Report - Physicians/Mid Levels [facility] Emergency Department [address] [place] [address] Phone #: ext- [phone] 09/18/2020 13:40 Patient: DEVANTE STARK Sex: F : 2000 Age: 20y bleeding. Your Current Medications: . No home medication. Follow-up: Follow up with your doctor Monday. Reason for referral: evaluation and repeat Beta HCG today it was 11,181, repea US when Indicated. Summary of care provided to patient. Understanding of the discharge instructions verbalized by patient.(Electronically signed by TAJ Domingo 09/18/2020 21:21) Name Value Range Interpretation Code Description Data Chayo rce(s) Supporting Document(s) ID Date Data Source [id number] 09/22/2020 09:55:00 AM EST [facility] Name Value Range Interpretation Code Description Data Chayo rce(s) Supporting Document(s) CULTURE URINE [facility] _CULTURE URINE_$$[id number]$$[id number]$$[id number]$$[id number]$$028122$$[id number]$$[id number]$$438181$$[id number]$$ 504458$$715385$$652372$$651856$$154455$$168726$$691105$$656046$$023900$$896705$$ 228828$$802641$$097914$$237089$$699055$$[id number]$$[id number]$$[id number] -- Continued on next page --Patient: MI Zheng Order: [id number] Page 2Culture: CULTURE URINE Status: Final ====$$[id number]$$[id number] DATE/TIME: 09/22/2020 08:08Culture: CULTURE URINE Status: FinalUrine Culture,Comprehensive: D1Hcdyp urogenital flora10,000-25,000 colony forming units per mLIsolate 1 Beta hemolytic Streptococcus, group B Flag: A . . . . . . .45,000 Colonies/mLPenicillin and ampicillin are drugs of choice for treatment ofbeta-hemolytic streptococcal infections. Susceptibility testing ofpenicillins and other beta-lactam agents approved by the FDA fortreatment of beta-hemolytic streptococcal infections need not beperformed routinely because nonsusceptible isolates are extremelyrare in any beta-hemolytic streptococcus and have not been reportedfor Streptococcus pyogenes (group A). (CLSI)Beta hemolytic Streptococcus, group B Flag: AP1 Test performed by: [facility] [id number] [address] [place] [id number] [facility] [id number] Director : Tod Posey MD NPI #:[employer] : 09/[id number] REF ID Date Data Source [id number] 09/22/2020 06:15:00 AM [facility] Name Value Range Interpretation Code Description Data Chayo rce(s) Supporting Document(s) Chlamydia trachomatis rRNA [Presence] in Unspecified specimen by Probe and target amplification method Negative Negative [facility] Neisseria gonorrhoeae rRNA [Presence] in Unspecified specimen by Probe and target amplification method Negative Negative [facility] ID Date Data Source [id number] 09/18/2020 03:57:00 PM [facility] Name Value Range Interpretation Code Description Data Chayo rce(s) Supporting Document(s) URINALYSIS [facility] URINALYSIS SOURCE R [facility] COLOR yellow NORMAL: Yellow [facility] CLARITY hazy NORMAL: Clear [facility] Specific gravity of Urine by Test strip 1.015 1.001 - 1.030 [facility] pH 6 5 - [address] [facility] Glucose [Mass/volume] in Urine by Test strip NORM NORMAL: Negat [facility] Bilirubin.total [Presence] in Urine by Test strip NEG NORMAL: Negative [facility] Ketones [Presence] in Urine by Test strip NEG NORMAL: Negative [facility] Protein [Mass/volume] in Urine by Test strip NEG NORMAL: Negat [facility] Nitrite [Presence] in Urine by Test strip NEG NORMAL: Negative [facility] BLOOD NEG NORMAL: Negative [facility] Leukocyte esterase [Presence] in Urine by Test strip 500 KOKI L: Negative A [facility] Urobilinogen [Mass/volume] in Urine by Test strip NOR less concha n 1.0 mg/dL [facility] MICROSCOPIC See Below [facility] ital WBC 3 - 5 NORMAL: NONE SEEN [facility] Erythrocytes [#/volume] in Urine by Test strip 1 - 3 NORMAL: NON E SEEN [facility] EPITHELIAL MODERATE NORMAL: NONE SEEN A [facility] Bacteria [Presence] in Urine sediment by Light microscopy 1+ SMALL NORMAL: NONE SEEN [facility] ID Date Data Source [id number] 09/18/2020 03:40:00 PM [facility] Name Value Range Interpretation Code Description Data Chayo rce(s) Supporting Document(s) ABO group [Type] in Blood B [facility] Rh [Type] in Blood POSITIVE [facility] { ABO/RH REENTER B POSITIVE ID Date Data Source [id number] 09/18/2020 03:09:00 PM [facility] Name Value Range Interpretation Code Description Data Chayo rce(s) Supporting Document(s) Choriogonadotropin.intact [Units/volume] in Serum or Plasma 34984.0 mIU/mL [facility] Interpr etation: Less than 5 mU/mL: Negative 6-10 mU/mL: Borderline (suggest repeat in 48 hours) >10: Positive Approx HCG range (mU/mL) Weeks post LMP 5.4-708 mU/mL 3-4 Weeks 217-46181 mU/mL 5-6 Weeks 4059-637617 mU/mL 7-8 Weeks 93481-596309 mU/mL 9-10 Weeks 35932-44696 mU/mL 12-14 Weeks 20056-44156 mU/mL 15-16 Weeks 3354- 95913 mU/mL 17-18 Weeks ID Date Data Source [id number] 09/18/2020 03:09:00 PM EST [facility] Name Value Range Interpretation Code Description Data Chayo rce(s) Supporting Document(s) COMPREHENSIVE METABOLIC PANEL [facility] COMPREHENSIVE METABOLIC PANEL Sodium [Moles/volume] in Serum or Plasma 132 mEq/L 134 - 153 L [facility] Potassium [Moles/volume] in Serum or Plasma 4.1 mEq/L 3.6 - 5.0 [facility] Chloride [Moles/volume] in Serum or Plasma 100 mEq/L 98 - 107 [facility] Carbon dioxide, total [Moles/volume] in Serum or Plasma 25 MEQ/L 22 - 30 [facility] Glucose [Mass/volume] in Serum or Plasma 98 MG/DL 65 - 110 [facility] BUN 8 MG/DL 7 - 21 [facility] al Creatinine [Mass/volume] in Serum or Plasma 0.7 MG/DL 0.7 - 1.5 [facility] BUN/CREAT 11 8 - 27 [facility] Protein [Mass/volume] in Serum or Plasma 6.7 G/DL 6.3 - 8.2 [facility] Albumin [Mass/volume] in Serum or Plasma 4.3 G/DL 3.9 - 5.0 [facility] Globulin [Mass/volume] in Serum by calculation 2.4 GM/DL 2.4 - 3.2 [facility] A/G RATIO 1.8 0.8 - 2.0 [facility] Calcium [Mass/volume] in Serum or Plasma 9.4 MG/DL 8.4 - 10.2 [facility] Bilirubin.total [Mass/volume] in Serum or Plasma <0.7 MG/DL 0.2 - 1.3 [facility] Alkaline phosphatase [Enzymatic activity/volume] in Serum or Plasma 48 U/L 38 - 126 [facility] Aspartate aminotransferase [Enzymatic activity/volume] in Serum or Plasma 12 U/L 5 - 40 [facility] Alanine aminotransferase [Enzymatic activity/volume] in Seru m or Plasma 13 U/L 7 - 56 [facility] Anion gap 3 in Serum or Plasma 7.0 mmol/L 8.0 - 16.0 L [facility] AGE [address] [facility] NON-AA GFR >60 mL/min [facility] AFR AMER GFR >60 mL/min [facility] Male GFR In terprentation 20-49 yrs >60 mL/min Normal 50-59 yrs >56 mL/min Normal 60-69 yrs >49 mL/min Normal 70-79yrs >42 mL/min Normal 80 and above >35 mL/min Normal Female GFR Interpretation 20-39 yrs >60 mL/min Normal 40-49 yrs >58 mL/min Normal 50-59 yrs >51 mL/min Normal 60-69 yrs >45 mL/min Normal 70-79 yrs >39 mL/min Normal 80 and above >32 mL/min Normal ID Date Data Source [id number] 09/18/2020 02:34:00 PM EST [facility] Name Value Range Interpretation Code Description Data Cahyo rce(s) Supporting Document(s) CBC W/AUTOMATED DIFF [facility] COMPLETE BLOOD COUNT Leukocytes [#/volume] in Blood by Automated count 6.8 10^3/uL 4.2 - 1 1.0 [facility] Erythrocytes [#/volume] in Blood by Automated count 4.23 10^6/uL 4. 20 - 5.40 [facility] Hemoglobin [Mass/volume] in Blood 13.0 g/dL 12.0 - 16.0 [facility] Hematocrit [Volume Fraction] of Blood by Automated count 38.2 % 3 7.0 - 47.0 [facility] Erythrocyte mean corpuscular volume [Entitic volume] by Auto mated count 90.3 fL 81.0 - 101 [facility] Erythrocyte mean corpuscular hemoglobin [Entitic mass] by Automated count 30.7 pg 27.0 - 34.0 [facility] Erythrocyte mean corpuscular hemoglobin concentration [Mass/volume] by Automated count 34.0 g/dL 31.0 - 36.0 [facility] Erythrocyte distribution width [Ratio] by Automated count 12.5 % 11.5 - 14.5 [facility] Platelets [#/volume] in Blood by Automated count 214 10^3/uL 150 - 45 0 [facility] Platelet mean volume [Entitic volume] in Blood by Automated count 10.9 fL 7.4 - 10.4 H [facility] Neutrophils/100 leukocytes in Blood by Automated count 68.3 % 37. 0 - 80.0 [facility] Lymphocytes/100 leukocytes in Blood by Manual count 22.9 % 25.0 - 40.0 L [facility] Monocytes/100 leukocytes in Blood by Automated count 6.9 % 3.0 - 8.0 [facility] Eosinophils/100 leukocytes in Blood by Automated count 0.9 % 0.0 - 7.0 [facility] Basophils/100 leukocytes in Blood by Automated count 0.6 % 0.0 - 2.5 [facility] %IG 0.4 % 0.0 - 0.[address] [facility] %NRBC 0.0 % 0.0 - 0.0 [facility] al Neutrophils [#/volume] in Blood by Automated count 4.64 10^3/uL 2.00 - 6.90 [facility] Lymphocytes [#/volume] in Blood by Automated count 1.56 10^3/uL 0.60 - 3.40 [facility] Monocytes [#/volume] in Blood by Automated count 0.47 10^3/uL 0.00 - 0.90 [facility] Eosinophils [#/volume] in Blood by Automated count 0.06 10^3/uL 0.00 - 0.70 [facility] Basophils [#/volume] in Blood by Automated count 0.04 10^3/uL 0.00 - 0.20 [facility] #IG 0.03 10^3/uL 0.00 - 0.10 [facility] #NRBC 0.00 10^3/uL 0.00 - 0.00 [facility] MANUAL DIFF SEE BELOW [facility] ital Segmented neutrophils/100 leukocytes in Blood by Manual count 74 % 37 - 80 [facility] %LYMPH 22 % 25 - [address] [facility] %MONO 4 % 3 - 8 [facility] RBC MORPH SEE BELOW [facility] Anisocytosis [Presence] in Blood by Light microscopy 1+ KOKI L: NONE SEEN A [facility] { SICKLE CELL (NORMAL: NONE SEEN ) Platelet adequacy [Presence] in Blood by Light microscopy NORMAL NORMAL: NORMAL [facility] COMMENT: Procedure
--- OUTSIDE RECORDS SUMMARY | 2020-10-15 15:29 | CCD | Continuity of Care Document ---
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 Medications No medication information available. Problems No problem information available. Procedures Procedure Date Performed Status *Complete Blood Count October 08, 2020 completed Urinalysis October 08, 2020 completed Relevant Diagnostic Tests and/or Laboratory Data Laboratory Results Test Date/Time Result Interpretation Reference Range Result Co mment Performing Site Urine Color October 07, 2020 10:58pm Yellow [facility] Urine Appearance October 07, 2020 10:58pm Clear [facility] Urine Glucose October 07, 2020 10:58pm Negative NEGATIVE [facility] Urine Bilirubin Confirmation October 07, 2020 10:58pm Negative NEGATIVE [facility] Urine Ketones October 07, 2020 10:58pm Negative NEGATIVE [facility] Urine Specific [place] October 07, 2020 10:58pm 1.020 1.010-1.025 [facility] Urine Blood October 07, 2020 10:58pm 3+ NEGATIVE [facility] Urine pH October 07, 2020 10:58pm 5.5 5.0-8.0 [facility] Urine Protein October 07, 2020 10:58pm Negative Negative [facility] Urine Urobilinogen October 07, 2020 10:58pm 0.2 0.2- 1.0 [facility] Urine Nitrite October 07, 2020 10:58pm Negative Negative [facility] Urine Leukocytes October 07, 2020 10:58pm Trace Negati ve [facility] Urine RBC October 07, 2020 10:58pm 11-20 RBCs/HPF NONE SEE N [facility] Urine WBC October 07, 2020 10:58pm 3-5 WBCs/HPF NONE SEEN [facility] Urine Bacteria October 07, 2020 10:58pm Few NONE SEE N [facility] URINE EPITHELIAL October 07, 2020 10:58pm Few NONE S EEN [facility] Serum HCG, Qualitative October 07, 2020 11:10pm Positive Negative [facility] Free Beta-Human Chorionic Gonadotro October 07, 2020 11:10pm 587206 .0 GESTATIONAL AGE HCG mIU/ML0.2 - 1 WEEK 5 - 501 - 2 WEEKS 50 - 5002 - 3 WEEKS 100 - 76922 - 4 WEEKS 500 - 128056 - 5 WEEKS 1000 - 372785 - 6 WEEKS 58360 - 3419793 - 8 WEEKS 55312 - 3836934 - 3 MONTHS 05659 - 442220 ADULT MALES, AGES 19 - 67 <= 1.0NON- FEMALES, AGES 18 - 62 1 - 3 [facility] White Blood Count October 07, 2020 10:58pm 10.32 4.0-1 0.5 [facility] Red Blood Count October 07, 2020 10:58pm 4.07 4.20-5. 40 [facility] Hemoglobin October 07, 2020 10:58pm 12.3 12.0-16.0 [facility] Hematocrit October 07, 2020 10:58pm 36.0 37.0-47.0 [facility] Mean Corpuscular Volume October 07, 2020 10:58pm 88.5 81.0-99.0 [facility] Mean Corpuscular Hemoglobin October 07, 2020 10:58pm 30.2 27.0-31.0 [facility] Mean Corpuscular Hemoglobin Concent October 07, 2020 10:58pm 34.2 32.7-35.6 [facility] Red Cell Distribution Width October 07, 2020 10:58pm 12.7 11.5-14.0 [facility] Platelet Count October 07, 2020 10:58pm 202 150-450 [facility] Mean Platelet Volume October 07, 2020 10:58pm 11.9 6. 9-9.5 [facility] Neutrophils (%) (Auto) October 07, 2020 10:58pm 75.6 34-64 [facility] Lymphocytes (%) (Auto) October 07, 2020 10:58pm 16.3 25-45 [facility] Monocytes (%) (Auto) October 07, 2020 10:58pm 5.3 1. 7-10.6 [facility] Eosinophils (%) (Auto) October 07, 2020 10:58pm 1.6 0.4-7.0 [facility] Basophils (%) (Auto) October 07, 2020 10:58pm 0.6 0. 1-2.0 [facility] Immature Granulocyte % (Auto) October 07, 2020 10:58pm 0.6 0.1-2.0 [facility] Absolute Neutrophils (auto) October 07, 2020 10:58pm 7.81 1.2-7.6 [facility] Absolute Lymphocytes (auto) October 07, 2020 10:58pm 1.68 1.0-3.5 [facility] Absolute Monocytes (auto) October 07, 2020 10:58pm 0.55 0.1-1.0 [facility] Absolute Eosinophils (auto) October 07, 2020 10:58pm 0.16 0.1-0.7 [facility] Absolute Basophils (auto) October 07, 2020 10:58pm 0.06 0.0-0.1 [facility] Absolute Immature Granulocyte (auto October 07, 2020 10:58pm 0.06 0.0-0.1 [facility] Nucleated Red Blood Cells % (auto) October 07, 2020 10:58pm 0 0 [facility] Health Concerns No known health concerns documented Chief Complaint and Reason for Visit Reason for Visit VAGINAL BLEEDING-9 WEEKS PRE GNANT Encounters Encounter Location(s) Arrival/Admit Date Discharge/Depart Date Provider(s) Departed Emergency [facility] October 07, 2020 10:43pm October 08, 2020 12:29am CHAITANYA ONTIVEORS MD Assessments No Assessments Information Available Functional Status No Functional Status information available Goals No Goals Information Available Immunizations No Immunization Information Available Mental Status No Mental Status Information Available Medical Equipment No Medical Equipment Information available Insurance Providers Guarantor DEVANTE STARK Address [address] [place] [address] Contact Info. Home Phone: Payer Policy Id Coverage Id Subscriber's Name Subscriber Id Effect eliezer Date Expiration Date [facility] [id number] DEVANTE STARK Social History Assigned Sex Female Vital Signs No vital signs result information available.
--- OUTSIDE RECORDS SUMMARY | 2020-10-15 16:32 | CCD ---
Author Author [facility] Organization [facility] Address Unknown Phone Unavailable Care Team Providers Care Incubator Machine Operator Name Role Phone Philip Christianson MD Unavailable [...] is protected by Article 27-F of the [facility] Public Health law. If you continue you may have access to information: Regarding HIV / AIDS; Provided by facilities licensed or operated by the [facility] Office of Mental Health; or Provided by the [facility] Office for People With Developmental Disabilities. If such information is present, then the following [facility] mandated warning applies: This information has [...] law may result in a fine or nursing home sentence or both. A general authorization for [...] PM EST - 09/18/2020 04:30:00 PM EST [facility] Patient discharged. Insurance Providers Payer name Policy type / Coverage type Policy ID Covered democrat ID Covered democrat's relationship to guerin Policy Guerin Plan Information [facility] [id number] [facility] O/P [id number] 18 [id number] [facility] ACTIVE DUTY [id number] Problems, Conditions, and Diagnoses Code Display Name Description Problem Type Effective Dates Data Source(s) Z87.891 Personal history of nicotine dependence PERSONAL HISTORY OF NICOTINE DEPENDENCE Diagnosis 10/08/2020 03:43:00 AM [facility] ascencio 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 HALF-WAY (CU RRENT) USE OF ASPIRIN Diagnosis 10/08/2020 03:43:00 AM [facility] Z3A.09 9 weeks gestation of 9 WEEKS GESTATION OF IN EGNANCY Diagnosis 10/08/2020 03:43:00 AM [facility] O20.0 Threatened THREATENED Diagnosis 0 10/08/2020 03:43:00 AM [facility] O20.9 Hemorrhage in early , unspecifi ed HEMORRHAGE IN EARLY , UNSPECIFIED Diagnosis 10/08/2020 03:43:00 AM [facility] Quentin ascencio [id number] Personal history of nicotine dependence Personal history of nicotine dependence Diagnosis 09/18/2020 01:52:00 PM [facility] Z3A01 Less than 8 weeks gestation of Less than 8 weeks gestation of Diagnosis 09/18/2020 01:52:00 PM [facility] C65772 Other specified related condit ions, first trimester Other specified related conditions, first trimester Diagnosis 09/18/2020 01:52:00 PM [facility] Results ID Date Data Source [id number] 10/08/2020 05:11:00 AM [facility] Name Value Range Interpretation Code Description Data Chayo rce(s) Supporting Document(s) CG 839796.0 mIU/mL [facility] GESTATIONAL AGE HCG mIU/ML0.2 - 1 WEEK 5 - 501 - 2 WEEKS 50 - 5002 - 3 WEEKS 100 - 46318 - 4 WEEKS 500 - 527825 - 5 WEEKS 1000 - 557885 - 6 WEEKS 92462 - 3609713 - 8 WEEKS 78411 - 9599410 - 3 MONTHS 30021 - 694318 ADULT MALES, AGES 19 - 67 <= 1.0NON- FEMALES, AGES 18 - 62 1 - 3 ID Date Data Source [id number] 10/08/2020 04:42:00 AM EST [facility] Name Value Range Interpretation Code Description Data Chayo rce(s) Supporting Document(s) HCG QUAL SERUM Positive Negative N [facility] l ID Date Data Source [id number] 10/08/2020 04:44:00 AM EST [facility] Name Value Range Interpretation Code Description Data Chayo rce(s) Supporting Document(s) URINE COLOR [facility] UAPR [facility] UGLU Negative NEGATIVE [facility]IL[facility]UBIN [facility] NE[facility] USG 1.020 1.010-1.025 [facility] UBLO 3+ NEGATIVE [facility] UpH 5.5 5.0-8.0 [facility] UPRO Negative Negative [facility] UUB 0.2 mg/dL 0.2-1.0 [facility] UNIT Negative Negative [facility] ULEU Trace Negative [facility] ID Date Data Source [id number] 10/08/2020 04:44:00 AM EST [facility] Name Value Range Interpretation Code Description Data Chayo rce(s) Supporting Document(s) URINE RBC 11-20 RBCs/HPF NONE SEEN [facility] URINE WBC 3-5 WBCs/HPF NONE [facility] URINE BACTERIA Few NONE SEEN [facility] URINE EPI. Few NONE SEEN [facility] ID Date Data Source [id number] 10/08/2020 04:26:00 AM EST [facility] Name Value Range Interpretation Code Description Data Chayo rce(s) Supporting Document(s) WBC 10.32 x10E3/uL 4.0-10.5 [facility] l RBC 4.07 x10E6/uL 4.20-5.40 [facility] Hemoglobin 12.3 g/dL 12.0-16.0 [facility] Hematocrit 36.0 % 37.0-47.0 [facility] MCV 88.5 fL 81.0-99.0 [facility] MCH 30.2 pg 27.0-31.0 [facility] MCHC 34.2 g/dL 32.7-35.6 N [facility] RDW 12.7 % 11.5-14.0 N [facility] Platelet count 202 x10E3/uL 150-450 [facility] MPV 11.9 fl 6.9-9.5 H [facility] Neutrophils 75.6 % 34-64 H [facility] Lymphocytes 16.3 % 25-45 L [facility] Monocytes 5.3 % 1.7-10.6 N [facility] Eosinophils 1.6 % 0.4-7.0 N [facility] Basophils 0.6 % 0.1-2.0 N [facility] Imm. Gran. 0.6 % 0.1-2.0 N [facility] Abs. Neutro. 7.81 x10E3/uL 1.2-7.6 H [facility] Abs. Lymph. 1.68 x10E3/uL 1.0-3.5 [facility] Abs. Pope. 0.55 x10E3/uL 0.1-1.0 [facility] Abs. Eosin. 0.16 x10E3/uL 0.1-0.7 [facility] Abs. Baso. 0.06 x10E3/uL 0.0-0.1 [facility] Abs. Imm. Gran. 0.06 x10E3/uL 0.0-0.1 N [facility] spital ANRBC% 0 % 0 N [facility] ID Date Data Source [id number] 10/08/2020 05:29:00 AM EST [facility] Physician Taco-Agustin estrada CenterName: Devante HicksAge: 20 yrsSex: FemaleDOB: 2000MRN: [id number] Date: 10/08/2020Time: 03:43Account#: [id number] WINSTON: Out of town provider, -ED Physician Bright Christianson Summary:10/08/20 05:17Discharge OrderedLocation: Home Self Care kn2Rlkjobw: new ev9Zyoiwcjv: have improved xd5Osyvydczc: Improved ak6Balzaqtyw- Threatened so2Cbvkzhlq: th4- With: Private Physician- When: 2 - 3 days- Reason: Recheck today's complaints, Continuance of careDischarge Instructions:- Discharge Summary Sheet th4- , Threatened zi5Uavoe:- Medication Reconciliation 4- Medication Reconciliation Form - 2nd Copy thHPI:09/2803:08 This 20 yrs old Black Female presents to ER via Private Vehicle with ry3nipgsqsmnf of Vaginal Bleeding.04:08 Patient comes the ER today for evaluation of vaginal bleeding that id7hinpqwb just prior to arrival. She describes the blood is dark.Patient is currently . She is a at approximately 9weeks. She reports that [facility] [...] Shedenies any other problems or any other complaints..PRESS MANAGER:04:02 1, Full Term 0, Premature 0, 0, Living 0, LMP 08/08/2020Historical:- Allergies: No known Allergies;- Home Meds:1. Vitamin Oral2. 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 ETOH status Denies use of ETOH.- Advance Directives:: None.ROS:04:10 Constitutional: Negative for chills, fever. Eyes: Negative for acute cz5jclduwu. ENT: Negative for nasal discharge, rhinorrhea, sinuscongestion. [...] External exam: is normal, Speculum exam: scant lq4qspeoiaa, no cervicitis, os that is closed, bimanual [...] signs, nurses notes, lab test result(s). ED mm1wjasmg: Patient remained stable in the ER. Patient [...] for discharge. She will follow upwith her PRESS MANAGER. We discussed return precautions. Patient iswell-appearing, well-hydrated, not ill or toxic in any way. Bloodtype is B+..09/2802:58 Order name: CBC with diff; Complete Time: 04:32 :58 Order name: SHCG; Complete Time: ::58 Order name: UA; Complete Time: ::58 Order name: Saline Lock; Complete Time: 04::58 Order name: Set Up Pelvic Exam; Complete Time: ::58 Order name: Quantitave HCG; Complete Time: 05:12 zv6Snirvlnpi Medications:No medications were administeredSignatures:Dispatcher [employer] Chaitanya Kim MD MD uw8BulzRashard RN RN fw Name Value Range Interpretation Code Description Data Chayo rce(s) Supporting Document(s) ID Date Data Source [id number] 10/08/2020 05:29:00 AM EST [facility] Kelly terName: Devante YanezksAge: 20 yrsSex: FemaleDOB: 2000MRN: [id number] Date: 10/08/2020Time: 03:43Account#: [id number] 9Prmalaika WINSTON: Out of town provider, -Diagnosis: [...] ongoing COVID-19 community spread or outside of [facility]? no Flu- like symptoms reported in the [...] sensationintact Range of motion intact in all extremities.PRESS MANAGER:04:02 1, Full Term 0, Premature 0, 0, [...] is Private Physician. fw03:45 Triage completed. fw03:46 Chaitnaya Christianson MD is Attending Physician. th403:53 Patient [...] to home ambulatory. fw05:22 Condition: stable, Condition: izsizcqg90:22 Discharge instructions given to patient, Instructed on dischargeinstructions, follow up and referral plans. medication usage.05:22 Discharge Assessment: Patient verbalized understanding of dispositioninstructions. Patient has no functional deficits.05:29 Patient left the ED. fwSignatures:Chaitanya Christianson MD MD wa2Vvbn, MAXINE Wetzel RN Name Value Range Interpretation Code Description Data Chayo rce(s) Supporting Document(s) ID Date Data Source [id number] 09/21/2020 09:58:00 [place] [address] PHONE: [phone] FAX: [phone] Name .................. : MI Zheng Acct Number.................. : [id number] ROOM. ................. : TR-02 MR Number ................... : [id number] Stay type ............. : E/R Discharge Date......... ... : 09/18/20 Admit Date .... ..... : 09/18/20 Admit Phys .................... : COONEYNORM Date of ....... : 2000 Family Phys ................... : UNKNOWN Phone .................. : [phone] Age ................................ : 20 Film# .................. .:[id number] Sex ................................. : F Unsigned transcriptions are preliminary reports and do not represent a medical or [place] [id number] COMPLETE:09/18/20 19:06 BAW 1801 Reason(s): vi ability [...] and Signed By Page [address] [facility] [address] [place] [address] [place] [address] PHONE: [phone] FAX: [phone] Name .................. : MI Zheng Acct Number.................. : [id number] ROOM. ................. : TR-02 MR Number ................... : [id number] Stay type ............. : E/R Discharge Date......... ... : 09/18/20 Admit Date ......... : 09/18/20 Admit Phys .................... : COONEYNORM Date of ....... : 2000 Family Phys ................... : UNKNOWN Phone .................. : [phone] Age ................................ : 20 Film# .................. .:[id number] Sex ................................. : F Unsigned transcriptions are preliminary reports and do not represent a medical or legal [place] [id number] COMPLETE:09/18 19:06 BAW 1801 Reason(s): viability ectopic Bravo Sterling M.D. , 09/21/20 09:58, [place] Transcribe Initials: SAMAN , Transcribe Date: 09/19/20 02:55, Dictation Date: Copy for: TARA KAUR via fax Copy for: EMERGENCY DEPT via modem Copy for: 710 MED REC DISCHARGED Page 2 of 2 Name Value Range Interpretation Code Description Data Chayo rce(s) Supporting Document(s) ID Date Data Source [id number] 09/18/2020 01:52:00 PM EST [facility] 1 OrderSheet [facility] Emergency Department [address] [place] [address] Phone #: ext- [phone] 09/18/2020 13:40 Patient: [...] 15:37 Juliocesar,TRANSVAGINAL Puneet Gandara, Kinga Donato RMargauxNMargaux ONEIDA TAJ; R.N.(IV?(No))(Oxygen?(No)) Reason for Study: viability ectopicMEDICATION/IV/DRIP/FLUID ORDERS 2 OrderSheet [facility] Emergency Department [address] [place] [address] Phone #: ext- [phone] 09/18/2020 13:40 Patient: [...] rce(s) Supporting Document(s) ID Date Data Source [id number] 09/18/2020 01:52:00 PM EST [facility] 1 Medication Reconciliation Report [facility] Emergency Department [address] [place] [address] Phone #: ext- [phone] 09/18/2020 13:40 Patient: [...] rce(s) Supporting Document(s) ID Date Data Source [id number] 09/18/2020 01:52:00 PM [place] [address] Medication Administration Record [facility] Emergency Department [address] [place] [address] Phone #: ext- [phone] 09/18/2020 13:40 Patient: DEVANTE STARK Sex: F : 2000 Age: 20yWeight: 87.5 kgHeight/Length: 66 inBMI: 31.2ALLERGIES: NoneDate/Time Medication Administered Medication Ordered Name Value Range Interpretation Code Description Data Chayo rce(s) Supporting Document(s) ID Date Data Source [id number] 09/18/2020 01:52:00 PM [place] [address] General Instructions [facility] Emergency Department [address] [place] [address] Phone #: ext [phone] 09/18/2020 13:40 Patient: DEVANTE STARK Sex: F [...] by patient. ADDITIONAL INFORMATIONPregnancy 2 General Instructions [facility] Emergency Department [address] [place] [address] Phone #: ext- [phone] 09/18/2020 13:40 Patient: DEVANTE STARK Sex: F [...] baby is born healthy: 3 General Instructions [facility] Emergency Department [address] [place] [address] Phone #: ext- [phone] 09/18/2020 13:40 [id number] Sex: F : 2000 Age: 20y Rest [...] You can seeyour family provider, a specialist (straddle bug driver), a midwi fe, or a primary care clinic.When to seek medical adviceCall your healthcare provider right away if any of these occur: Vaginal bleeding Pain in your belly (abdomen) or back that is moderate or severe Lots of vomiting, or you can't keep any fluids down for 6 hours 4 General Instructions [facility] Emergency Department [address] [place] [address] Phone #: ext- [phone] 09/18/2020 13:40 Patient: DEVANTE STARK Sex: F : 2000 Age: 20y Burning feeling when you urinate Headache, dizziness, or rapid weight gain Fever Vision changes or blurred vision [id number] App [employer]. [address] [place] [address]. All rights reserved. This information is not intended as asubstitute for professional medical care. Always follow your healthcare professional's instructions. You have been given the following additional information: , New Dx(Electronically signed by TAJ Domingo 09/18/2020 21:21) Name Value Range Interpretation Code Description Data Chayo rce(s) Supporting Document(s) ID Date Data Source [id number] 09/18/2020 01:52:00 PM EST [facility] 1 Clinical Report - Nurses [facility] Emergency Department [address] [place] [address] Phone #: ext- [phone] 09/18/2020 13:40 Patient: DEVANTE STARK Sex: F : 2000 Age: 20yTRIAGEArrived by private vehicle. Historian: patient. Accompanied by family. ( pt is 6 weeks , nothaving any symptoms where she was having swelling of breast and other symptoms, called obbut she cannot be seen until oct).Acuity: LEVEL 4.Chief Complaint: (not having any symptoms).Alert.Onset. (3 days ago). ( runny nose, headache).Treatment OPERATOR VACUUM:None.SEPSIS SCREEN: SIRS SCREEN NEGATIVE. SEPSIS SCREEN NEGATIVE. [...] or CRE. 2 Clinical Report - Nurses [facility] Emergency Department [address] [place] [address] Phone #: ext- [phone] 09/18/2020 13:40 Patient: DEVANTE STARK Sex: F [...] patient identifiers 3 Clinical Report - Nurses [facility] Emergency Department [address] [place] [address] Phone #: ext- [phone] 09/18/2020 13:40 Patient: DEVANTE STARK Sex: F : 2000 Age: 20y checked. Call light placed in reach. Side rails up x 2. Bed placed in lowest position. Brakes of bed on. --15:26 09/18/20 Kinga Gandara R.N. Patient returned from sonogram by wheelchair with mask and it technical architect. --15:41 09/18/20 Kinga Gandara R.N. 15:45 09/18/20. BP: 138/60. MAP: 86. HR: 62. RR: 16. O2 saturation: 99% on room air. --15:45 09/18/20 Kinga Gandara R.N.DISPOSITION / DISCHARGE No learning barriers present. Patient verbalized understanding. ( follow up with md for repeat beta). Written instructions not provided in [place]. The patient was discharged home and accompanied [...] rce(s) Supporting Document(s) ID Date Data Source [id number] 09/18/2020 01:52:00 PM EST [facility] 1 Clinical Report - Physicians/Mid Levels [facility] Emergency Department [address] [place] [address] Phone #: ext- [phone] 09/18/2020 13:40 Patient: DEVANTE STARK Sex: F [...] normal. 2 Clinical Report - Physicians/Mid Levels [facility] Emergency Department [address] [place] [address] Phone #: ext- [phone] 09/18/2020 13:40 Patient: DEVANTE STARK Sex: F [...] COMMENT: 3 Clinical Report - Physicians/Mid Levels [facility] Emergency Department [address] [place] [address] Phone #: [phone] prg- [phone] 09/18/2020 13:40 Patient: DEVANTE STARK Sex: F [...] Male GFR Interprentation 20-49 yrs >60 mL/min Vxryxj91-86 yrs >56 mL/min Normal 60-69 yrs >49 mL/min Normal 70-79yrs>42 mL/min Normal 80 and above >35 mL/min Normal Female GFRInterpretation 20-39 yrs >60 mL/min Normal 40-49 yrs >58 mL/minNormal 50-59 yrs >51 mL/min Normal 60-69 yrs >45 mL/min Hpiqtj91-94 yrs >39 mL/min Normal 80 and above [...] Negat 4 Clinical Report - Physicians/Mid Levels [facility] Emergency Department [address] [place] [address] Phone #: ext- [phone] 09/18/2020 13:40 Patient: DEVANTE STARK Sex: F [...] Test Result Flag Units (Reference) HCG QUANT 48376.0 mIU/mL Interpretation: Less than 5 mU/mL: Negative 6-10 mU/mL: Borderline (suggest repeat in 48 hours) >10: Positive Approx HCG range (mU/mL) Weeks post LMP 5.4-708 mU/mL 3-4 Weeks 217-51915 mU/mL 5-6 Weeks 4059-058198 mU/mL 7-8 Weeks 06149-443390 mU/mL 9-10 Weeks 18824-66398 mU/mL 12-14 Weeks 32901-10013 mU/mL 15-16 Weeks 8240-04208 mU/mL 17-18 Weeks . Note - Tests: [...] if 5 Clinical Report - Physicians/Mid Levels [facility] Emergency Department [address] [place] [address] Phone #: ext- [phone] 09/18/2020 13:40 Patient: [...] rce(s) Supporting Document(s) ID Date Data Source [id number] 09/22/2020 09:55:00 AM EST [facility] Name Value Range Interpretation Code Description Data Chayo rce(s) Supporting Document(s) CULTURE URINE [facility] _CULTURE URINE_$$[id number]$$[id number]$$[id number]$$[id number]$$397272$$642808$$535298$$041959$$373017$$ 356442$$901262$$130369$$930458$$388194$$009143$$318473$$017279$$645837$$206128$$ 346687$$991276$$534770$$326423$$263768$$081751$$234255$$[id number] -- Continued on next page --Patient: MI Zheng Order: [id number] Page 2Culture: CULTURE URINE Status: Final ====$$[id number]$$[id number] DATE/TIME: 09/22/2020 08:08Culture: CULTURE URINE Status: FinalUrine Culture,Comprehensive: J2Latvg urogenital flora10,000-25,000 colony forming units per mLIsolate [...] group B Flag: AP1 [facility] [id number] [address] [place] [address] [id number] [facility] [id number] Director : Tod Posey MD NPI #:Water Restoration Technician : 09/22/[email or web address].[email or web address] REF ID Date Data Source [id number] 09/22/2020 06:15:00 AM [facility] Name Value Range Interpretation Code Description Data Chayo rce(s) Supporting Document(s) Chlamydia trachomatis rRNA [Presence] in Unspecified specimen by Probe and target amplification method Negative Negative [facility] Neisseria gonorrhoeae rRNA [Presence] in Unspecified specimen by Probe and target amplification method Negative Negative [facility] ID Date Data Source [id number] 09/18/2020 03:57:00 PM [facility] Name Value Range Interpretation Code Description Data Chayo rce(s) Supporting Document(s) URINALYSIS [facility] URINALYSIS SOURCE R [facility] COLOR yellow NORMAL: Yellow [facility] CLARITY hazy NORMAL: Clear [facility] Specific gravity of Urine by Test strip 1.015 1.001 - 1.030 [facility] pH 6 5 - 9 [facility] Glucose [Mass/volume] in Urine by Test strip NORM NORMAL: Negat [facility] Bilirubin.total [Presence] in Urine by Test strip NEG NORMAL: Negative [facility] Ketones [Presence] in Urine by Test strip NEG NORMAL: Negative [facility] Protein [Mass/volume] in Urine by Test strip NEG NORMAL: Negat [facility] Nitrite [Presence] in Urine by Test strip NEG NORMAL: Negative [facility] BLOOD NEG NORMAL: Negative [facility] Leukocyte esterase [Presence] in Urine by Test strip 500 KOKI L: Negative A [facility] Urobilinogen [Mass/volume] in Urine by Test strip NOR less concha n 1.0 mg/dL [facility] MICROSCOPIC See Below [facility] ital WBC 3 - 5 NORMAL: NONE SEEN [facility] Erythrocytes [#/volume] in Urine by Test strip 1 - 3 NORMAL: NON E SEEN [facility] EPITHELIAL MODERATE NORMAL: NONE SEEN A [facility] Bacteria [Presence] in Urine sediment by Light microscopy 1+ SMALL NORMAL: NONE SEEN [facility] ID Date Data Source [id number] 09/18/2020 03:40:00 PM [facility] Name Value Range Interpretation Code Description Data Chayo rce(s) Supporting Document(s) ABO group [Type] in Blood B [facility] Rh [Type] in Blood POSITIVE [facility] { ABO/RH REENTER B POSITIVE ID Date Data Source [id number] 09/18/2020 03:09:00 PM [facility] Name Value Range Interpretation Code Description Data Chayo rce(s) Supporting Document(s) Choriogonadotropin.intact [Units/volume] in Serum or Plasma 62652.0 mIU/mL [facility] Interpr etation: Less than 5 mU/mL: Negative 6-10 mU/mL: Borderline (suggest repeat in 48 hours) >10: Positive Approx HCG range (mU/mL) Weeks post LMP 5.4-708 mU/mL 3-4 Weeks 217-73994 mU/mL 5-6 Weeks 4059-779065 mU/mL 7-8 Weeks 55763-887486 mU/mL 9-10 Weeks 95696-44128 mU/mL 12-14 Weeks 60846-92075 mU/mL 15-16 Weeks 4705- 42892 mU/mL 17-18 Weeks ID Date Data Source [id number] 09/18/2020 03:09:00 PM EST [facility] Name Value Range Interpretation Code Description Data Chayo rce(s) Supporting Document(s) COMPREHENSIVE METABOLIC PANEL [facility] COMPREHENSIVE METABOLIC PANEL Sodium [Moles/volume] in Serum or Plasma 132 mEq/L 134 - 153 L [facility] Potassium [Moles/volume] in Serum or Plasma 4.1 mEq/L 3.6 - 5.0 [facility] Chloride [Moles/volume] in Serum or Plasma 100 mEq/L 98 - 107 [facility] Carbon dioxide, total [Moles/volume] in Serum or Plasma 25 MEQ/L 22 - 30 [facility] Glucose [Mass/volume] in Serum or Plasma 98 MG/DL 65 - 110 [facility] BUN 8 MG/DL 7 - 21 [facility] al Creatinine [Mass/volume] in Serum or Plasma 0.7 MG/DL 0.7 - 1.5 [facility] BUN/CREAT 11 8 - 27 [facility] Protein [Mass/volume] in Serum or Plasma 6.7 G/DL 6.3 - 8.2 [facility] Albumin [Mass/volume] in Serum or Plasma 4.3 G/DL 3.9 - 5.0 [facility] Globulin [Mass/volume] in Serum by calculation 2.4 GM/DL 2.4 - 3.2 [facility] A/G RATIO 1.8 0.8 - 2.0 [facility] Calcium [Mass/volume] in Serum or Plasma 9.4 MG/DL 8.4 - 10.2 [facility] Bilirubin.total [Mass/volume] in Serum or Plasma <0.7 MG/DL 0.2 - 1.3 [facility] Alkaline phosphatase [Enzymatic activity/volume] in Serum or Plasma 48 U/L 38 - 126 [facility] Aspartate aminotransferase [Enzymatic activity/volume] in Serum or Plasma 12 U/L 5 - 40 [facility] Alanine aminotransferase [Enzymatic activity/volume] in Seru m or Plasma 13 U/L 7 - 56 [facility] Anion gap 3 in Serum or Plasma 7.0 mmol/L 8.0 - 16.0 L [facility] AGE 20 yrs [facility] NON-AA GFR >60 mL/min [facility] AFR AMER GFR >60 mL/min [facility] Male GFR In terprentation 20-49 [...] >32 mL/min Normal ID Date Data Source [id number] 09/18/2020 02:34:00 PM EST [facility] Name Value Range Interpretation Code Description Data Chayo rce(s) Supporting Document(s) CBC W/AUTOMATED DIFF [facility] COMPLETE BLOOD COUNT Leukocytes [#/volume] in Blood by Automated count 6.8 10^3/uL 4.2 - 1 1.0 [facility] Erythrocytes [#/volume] in Blood by Automated count 4.23 10^6/uL 4. 20 - 5.40 [facility] Hemoglobin [Mass/volume] in Blood 13.0 g/dL 12.0 - 16.0 [facility] Hematocrit [Volume Fraction] of Blood by Automated count 38.2 % 3 7.0 - 47.0 [facility] Erythrocyte mean corpuscular volume [Entitic volume] by Auto mated count 90.3 fL 81.0 - 101 [facility] Erythrocyte mean corpuscular hemoglobin [Entitic mass] by Automated count 30.7 pg 27.0 - 34.0 [facility] Erythrocyte mean corpuscular hemoglobin concentration [Mass/volume] by Automated count 34.0 g/dL 31.0 - 36.0 [facility] Erythrocyte distribution width [Ratio] by Automated count 12.5 % 11.5 - 14.5 [facility] Platelets [#/volume] in Blood by Automated count 214 10^3/uL 150 - 45 0 [facility] Platelet mean volume [Entitic volume] in Blood by Automated count 10.9 fL 7.4 - 10.4 H [facility] Neutrophils/100 leukocytes in Blood by Automated count 68.3 % 37. 0 - 80.0 [facility] Lymphocytes/100 leukocytes in Blood by Manual count 22.9 % 25.0 - 40.0 L [facility] Monocytes/100 leukocytes in Blood by Automated count 6.9 % 3.0 - 8.0 [facility] Eosinophils/100 leukocytes in Blood by Automated count 0.9 % 0.0 - 7.0 [facility] Basophils/100 leukocytes in Blood by Automated count 0.6 % 0.0 - 2.5 [facility] %IG 0.4 % 0.0 - 0.0 H [facility] %NRBC 0.0 % 0.0 - 0.0 [facility] al Neutrophils [#/volume] in Blood by Automated count 4.64 10^3/uL 2.00 - 6.90 [facility] Lymphocytes [#/volume] in Blood by Automated count 1.56 10^3/uL 0.60 - 3.40 [facility] Monocytes [#/volume] in Blood by Automated count 0.47 10^3/uL 0.00 - 0.90 [facility] Eosinophils [#/volume] in Blood by Automated count 0.06 10^3/uL 0.00 - 0.70 [facility] Basophils [#/volume] in Blood by Automated count 0.04 10^3/uL 0.00 - 0.20 [facility] #IG 0.03 10^3/uL 0.00 - 0.10 [facility] #NRBC 0.00 10^3/uL 0.00 - 0.00 [facility] MANUAL DIFF SEE BELOW [facility] ital Segmented neutrophils/100 leukocytes in Blood by Manual count 74 % 37 - 80 [facility] %LYMPH 22 % 25 - 40 L [facility] %MONO 4 % 3 - 8 [facility] RBC MORPH SEE BELOW [facility] Anisocytosis [Presence] in Blood by Light microscopy 1+ KOKI L: NONE SEEN A [facility] { SICKLE CELL (NORMAL: NONE SEEN ) Platelet adequacy [Presence] in Blood by Light microscopy NORMAL NORMAL: NORMAL [facility] COMMENT: Procedure
[2020-10-15] MEDS ORDERED: NS 1,000 ML IV ONE (17:15)
[2020-10-15 17:57] LABS: BASO % 0.4 % (0.0-1.0); EOS # 0.1 10^3/uL (0.0-0.5); EOS % 1.2 % (0.0-3.0); HEMATOCRIT 36.1 % (36.0-47.0); HEMOGLOBIN 12.1 g/dl (12.0-15.5); LYMPH # 2.2 10^3/uL (1.5-5.0); LYMPH % 21.4 % (24.0-44.0); MEAN CORPUSCULAR HEMOGLOBIN 30.8 pg (27.0-33.0); MEAN CORPUSCULAR HGB CONC 33.5 g/dl (32.0-36.5); MEAN CORPUSCULAR VOLUME 91.9 fl (80.0-96.0); MONO # 0.5 10^3/uL (0.0-0.8); MONO % 5.1 % (0.0-5.0); NEUTROPHILS # 7.5 10^3/uL (1.5-8.5); NEUTROPHILS % 71.1 % (36.0-66.0); PLATELET COUNT, AUTOMATED 195 10^3/uL (150-450); RED BLOOD COUNT 3.93 10^6/uL (4.00-5.40); WHITE BLOOD COUNT 10.5 10^3/uL (4.0-10.0)
[2020-10-15 17:58] LABS: ALBUMIN 3.5 GM/DL (3.2-5.2); ALT/SGPT 18 U/L (12-78); BILIRUBIN,DIRECT < 0.1 MG/DL (0.0-0.2); BILIRUBIN,TOTAL 0.2 MG/DL (0.2-1.0); BLOOD UREA NITROGEN 11 MG/DL (7-18); CALCIUM LEVEL 9.3 MG/DL (8.5-10.1); CARBON DIOXIDE LEVEL 22 MEQ/L (21-32); CHLORIDE LEVEL 106 MEQ/L (98-107); CREATININE FOR GFR 0.71 MG/DL (0.55-1.30); GLOMERULAR FILTRATION RATE > 60.0 (>60); GLUCOSE, FASTING 86 MG/DL (70-100); LIPASE 217 U/L (73-393); POTASSIUM SERUM 3.8 MEQ/L (3.5-5.1); SODIUM LEVEL 136 MEQ/L (136-145)
--- NOTE | 2020-10-15 19:27 | REPVR ---
PROCEDURE INFORMATION: Exam: US First Trimester, Transabdominal Exam date and time: 10/15/2020 6:20 PM Age: 20 years old Clinical indication: Lmp or gestational age (in weeks): 9 weeks 5 days; Other: Pelvic pain; ; Additional info: Cramping/recent bleeding/twin gestation TECHNIQUE: Imaging protocol: Real-time transabdominal obstetrical ultrasound of the maternal pelvis and a first trimester , less than 14 weeks 0 days, with image documentation. COMPARISON: No relevant prior studies available. FINDINGS: Gestation: There is diamniotic dichorionic twin gestation. Embryonic/ heart rate: Twin A cardiac activity is detected at 161 bpm. Placenta: 1.6 cm x 0.9 cm by 0.9 cm subchorionic hemorrhage is visualized at the anterior aspect of the uterus. Amniotic fluid: Amniotic fluid is normal for gestational age. BIOMETRY: Gestational age (AUA): Twin A measures 9 weeks and 3 days and is located inferiorly on the left. [place]-Rump length: Twin A crown-rump length measures 2.6 cm. MATERNAL: Right adnexa: Right ovary appears within normal limits. Left adnexa: Left ovary appears within normal limits. Intraperitoneal space: No intraperitoneal free fluid. IMPRESSION: 1. Dichorionic twin gestation. 2. Twin A measures 9 weeks and 3 days. 3. Anterior midline subchronic hemorrhage measuring up to 1.6 cm. PROCEDURE INFORMATION: Exam: US First Trimester, Transabdominal. Additional Gestation. Exam date and time: 10/15/2020 6:20 PM Age: 20 years old Clinical indication: Lmp or gestational age (in weeks): 9 weeks 5 days; Other: Pelvic pain; ; Additional info: Cramping/recent bleeding/twin gestation TECHNIQUE: Imaging protocol: Real-time transabdominal obstetrical ultrasound of the maternal pelvis and a first trimester with image documentation. Additional gestation was evaluated. COMPARISON: No relevant prior studies available. FINDINGS: GESTATION: Number of fetuses: 2 Multifetal identity: Fetus B Gestation: Diamniotic dichorionic twin gestation. Heart rate: Twin B cardiac activity is detected at 161 bpm. Placenta: 1.6 x 0.9 x 0.9 cm subchorionic hemorrhage is visualized at the anterior aspect. Amniotic fluid: Amniotic and coelomic fluid are normal for gestational age. BIOMETRY: Gestational age (AUA): Twin B measures 9 weeks and 2 days and is located superiorly on the right [place]-Rump length: Twin B crown-rump length measures 2.5 cm. IMPRESSION: 1. Dichorionic twin gestation. 2. Twin B measures 9 weeks and 2 days days. 3. Anterior midline subchronic hemorrhage measuring up to 1.6 cm. Electronically signed by: Robert Gaviria On 10/15/2020 19:27:38 PM
[2020-10-15 20:25] VITALS: BP 128/66
== END 2020-10-15 20:28 | disposition home or self-care (01) ==
LOC: M ED 15:21
DX: O20.8 Other hemorrhage in early pregnancy (principal); O30.041 Twin pregnancy, dichorionic/diamniotic, first trimester; Z3A.09 9 weeks gestation of pregnancy; Z77.098 Contact with and (suspected) exposure to other hazardous, chiefly nonmedicinal, chemicals

== ENCOUNTER 2021-08-04 06:36 | Emergency (ER) | payer OTHER ==
[~2021-08-04] VITALS: Ht 170.2 cm; Wt 111.9 kg
--- OUTSIDE RECORDS SUMMARY | 2021-08-04 06:44 | CCD ---
Author Author [facility] Organization [facility] Address Unknown Phone Unavailable Care Team Providers Care Airline Hostess Name Role Phone Marce AVENDANO MD Unavailable Unavailable Marce AVENDANO [...] Unavailable Unavailable Marce AVENDANO MD Unavailable Unavailable NOSOVIAbelino BARTLETT JR, MD Unavailable Unavailable NOSOVITCH JRAbelino MD Unavailable Unavailable NOSOVITCH JRAbelino MD Unavailable Unavailable NOSOVITCH JRAbelino MD Unavailable Unavailable NOSOVITCH JRAbelino MD Unavailable Unavailable NOSOVITCH JRAbelino MD Unavailable Unavailable NOSOVITCH JRAbelino MD Unavailable Unavailable NOSOVITCH JRAbelino MD Unavailable Unavailable NOSOVITCH JRAbelino MD Unavailable Unavailable NOSOVITCH JRAbelino MD Unavailable Unavailable NOSOVITCH JRAbelino MD Unavailable Unavailable NOSOVITCH JRAbelino MD Unavailable Unavailable NOSOVITCH JRAbelino MD Unavailable Unavailable NOSOVITCH JRAbelino MD Unavailable Unavailable NOSOVITCH JRAbelino MD Unavailable Unavailable NOSOVITCH JRAbelino MD Unavailable Unavailable NOSOVITCH JRAbelino MD Unavailable Unavailable NOSOVITCH JRAbelino MD Unavailable Unavailable NOSOVITCH JR, Abelino ZAPIEN MD Unavailable Unavailable NOSOVITCH JRAbelino MD Unavailable Unavailable NOSOVITCH JRAbelino MD Unavailable Unavailable NOSOVITCH JRAbelino MD Unavailable Unavailable NOSOVITCH JRAbelino MD Unavailable Unavailable NOSOVITCH JRAbelino MD Unavailable Unavailable NOSOVITCH JRAbelino MD Unavailable Unavailable NOSOVITCH JRAbelino MD Unavailable Unavailable NOSOVITCH JRAbelino MD Unavailable Unavailable NOSOVITCH JRAbelino MD Unavailable Unavailable NOSOVITCH JRAbelino MD Unavailable Unavailable NOSOVITCH JRAbelino MD Unavailable Unavailable NOSOVITCH JRAbelino MD Unavailable Unavailable BETSY CARO MD Unavailable Unavailable BETSY CARO MD Unavailable Unavailable BETSY CARO MD Unavailable Unavailable BETSY CARO MD Unavailable Unavailable BETSY CARO MD Unavailable Unavailable BETSY CARO MD Unavailable Unavailable BETSY ACRO MD Unavailable Unavailable BETSY CARO MD Unavailable Unavailable BETSY CARO MD Unavailable Unavailable BETSY CARO MD Unavailable Unavailable BETSY CARO MD Unavailable Unavailable BETSY CARO MD Unavailable Unavailable SOL, L GAIL WHNP-BC Unavailable Unavailable SOL, L GAIL WHNP-BC Unavailable Unavailable SOL, L GAIL WHNP-BC Unavailable Unavailable SOL, L GAIL WHNP-BC Unavailable Unavailable SOL, L GAIL WHNP-BC Unavailable Unavailable SOL, L GAIL WHNP-BC Unavailable Unavailable SOL, L GAIL WHNP-BC Unavailable Unavailable SOL, L GAIL WHNP-BC Unavailable Unavailable SOL, L GAIL WHNP-BC Unavailable Unavailable SOL, L GAIL WHNP-BC Unavailable Unavailable SOL, L GAIL WHNP-BC Unavailable Unavailable SOL, L GAIL WHNP-BC Unavailable Unavailable DREW BRAYDEN Unavailable Unavailable PHYSICIAN, PHYSICIAN ER Unavailable Unavailable NOSOVITCH Abelino MORRIS MD Unavailable Unavailable NOSOVITCH Abelino MORRIS MD Unavailable Unavailable NOSOVITCH Abelino MORRIS MD Unavailable Unavailable NOSOVITCH Abelino MORRIS MD Unavailable Unavailable NOSOVITCH Abelino MORRIS MD Unavailable Unavailable NOSOVITCH Abelino MORRIS MD Unavailable Unavailable NOSOVITCH Abelino MORRIS MD Unavailable Unavailable NOSOVITCH Abelino MORRIS MD Unavailable Unavailable NOSOVITCH Abelino MORRIS MD Unavailable Unavailable NOSOVITCH Abelino MORRIS MD Unavailable Unavailable NOSOVITCH Abelino MORRIS MD Unavailable Unavailable NOSOVITCH Abelino MORRIS MD Unavailable Unavailable NOSOVITCH Abelino MORRIS MD Unavailable Unavailable NOSOVITCH Abelino MORRIS MD Unavailable Unavailable NOSOVITCH Abelino MORRIS MD Unavailable Unavailable NOSOVITCH Abelino MORRIS MD Unavailable Unavailable NOSOVITCH Abelino MORRIS MD Unavailable Unavailable NOSOVITCH Abelino MORRIS MD Unavailable Unavailable NOSOVITCH Abelino MORRIS MD Unavailable Unavailable NOSOVITCH Abelino MORRIS MD Unavailable Unavailable NOSOVITCH Abelino MORRIS MD Unavailable Unavailable NOSOVITCH Abelino MORRIS MD Unavailable Unavailable NOSOVITCH Abelino MORRIS MD Unavailable Unavailable NOSOVITCH Abelino MORRIS MD Unavailable Unavailable NOSOVITCH Abelino MORRIS MD Unavailable Unavailable NOSOVITCH Abelino MORRIS MD Unavailable Unavailable NOSOVITCH JRAbelino MD Unavailable Unavailable NOSOVITCH Abelino MORRIS MD Unavailable Unavailable NOSOVITCH Abelino MORRIS MD Unavailable Unavailable NOSOVITCH Abelino MORRIS MD Unavailable Unavailable NOSOVITCH Abelino MORRIS MD Unavailable Unavailable NOSOVITCH Abelino MORRIS MD Unavailable Unavailable NOSOVITCH Abelino MORRIS MD Unavailable Unavailable NOSOVITCH Abelino MORRIS MD Unavailable Unavailable NOSOVITCH Abelino MORRIS MD Unavailable Unavailable NOSOVITCH Abelino MORRIS MD Unavailable Unavailable NOSOVITCH Abelino MORRIS MD Unavailable Unavailable NOSOVITCH Abelino MORRIS MD Unavailable Unavailable NOSOVITCH Abelino MORRIS MD Unavailable Unavailable NOSOVITCH Abelino MORRIS MD Unavailable Unavailable NOSOVITCH Abelino MORRIS MD Unavailable Unavailable NOSOVITCH JR, T CURRY MD Unavailable Unavailable NOSOVITCH Abelino MORRIS MD Unavailable Unavailable NOSOVITCH Abelino MORRIS MD Unavailable Unavailable NOSOVITCH Abelino MORRIS MD Unavailable Unavailable NOSOVITCH Abelino MORRIS MD Unavailable Unavailable NOSOVITCH Abelino MORRIS MD Unavailable Unavailable NOSOVITCH Abelino MORRIS MD Unavailable Unavailable NOSOVITCH Abelino MORRIS MD Unavailable Unavailable NOSOVITCH Abelino MORRIS MD Unavailable Unavailable NOSOVITCH Abelino MORRIS MD Unavailable Unavailable NOSOVITCH Abelino MORRIS MD Unavailable Unavailable NOSOVITCH Abelino MORRIS MD Unavailable Unavailable NOSOVITCH Abelino MORRIS MD Unavailable Unavailable NOSOVITCH Abelino MORRIS MD Unavailable Unavailable NOSOVITCH Abelino MORRIS MD Unavailable Unavailable NOSOVITCH Abelino MORRIS MD Unavailable Unavailable NOSOVITCH Abelino MORRIS MD Unavailable Unavailable NOSOVITCH Abelino MORRIS MD Unavailable Unavailable NOSOVITCH Abelino MORRIS MD Unavailable Unavailable NOSOVITCH Abelino MORRIS MD Unavailable Unavailable NOSOVITCH Abelino MORRIS MD Unavailable Unavailable SHEEBA, C JULIET GALVANIZING POT RUNNER Unavailable Unavailable SHEEBA, C JULIET GALVANIZING POT RUNNER Unavailable Unavailable SHEEBA, C JULIET GALVANIZING POT RUNNER Unavailable Unavailable SHEEBA, C JULIET GALVANIZING POT RUNNER Unavailable Unavailable SHEEBA, C JULIET GALVANIZING POT RUNNER Unavailable Unavailable SHEEBA, C JULIET GALVANIZING POT RUNNER Unavailable Unavailable SHEEBA, C JULIET GALVANIZING POT RUNNER Unavailable Unavailable SHEEBA, C JULIET GALVANIZING POT RUNNER Unavailable Unavailable SHEEBA, C JULIET GALVANIZING POT RUNNER Unavailable Unavailable SHEEBA, C JULIET GALVANIZING POT RUNNER Unavailable Unavailable SHEEBA, C JULIET GALVANIZING POT RUNNER Unavailable Unavailable SHEEBA, C JULIET GALVANIZING POT RUNNER Unavailable Unavailable SHEEBA, C JULIET GALVANIZING POT RUNNER Unavailable Unavailable SHEEBA, C JULIET GALVANIZING POT RUNNER Unavailable Unavailable SHEEBA, C JULIET GALVANIZING POT RUNNER Unavailable Unavailable SHEEBA, C JULIET GALVANIZING POT RUNNER Unavailable Unavailable SHEEBA, C JULIET GALVANIZING POT RUNNER Unavailable Unavailable SHEEBA, C JULIET GALVANIZING POT RUNNER Unavailable Unavailable SHEEBA, C JULIET GALVANIZING POT RUNNER Unavailable Unavailable SHEEBA, C JULIET GALVANIZING POT RUNNER Unavailable Unavailable SHEEBA, C JULIET GALVANIZING POT RUNNER Unavailable Unavailable SHEEBA, C JULIET GALVANIZING POT RUNNER Unavailable Unavailable SHEEBA, C JULIET GALVANIZING POT RUNNER Unavailable Unavailable SHEEBA, C JULIET GALVANIZING POT RUNNER Unavailable Unavailable SHEEBA, C JULIET GALVANIZING POT RUNNER Unavailable Unavailable SHEEBA, C JULIET GALVANIZING POT RUNNER Unavailable Unavailable [facility], [facility] Unavailable Unavailable Merrick SHARPE Unavailable Unavailable CHAITANYA CHRISTIANSON MD Unavailable Unavailable PHYSICIAN, ER Unavailable Unavailable Philip Christianson MD Unavailable Unavailable Philip Christianson MD Unavailable Unavailable Philip Christianson MD Unavailable Unavailable Philip Christianson MD Unavailable Unavailable Philip Christianson MD Unavailable Unavailable Meghan R Chaitanya WINSTON Unavailable Unavailable Meghan R Chaitanya WINSTON Unavailable Unavailable Philip Christianson MD Unavailable Unavailable MeghanPhilip alston MD Unavailable Unavailable MeghanPhilip alston MD Unavailable Unavailable Re-disclosure Warning The records that [...] is protected by Article 27-F of the [facility] Public Health law. If you continue you may have access to information: Regarding HIV / AIDS; Provided by facilities licensed or operated by the [facility] Office of Mental Health; or Provided by the [facility] Office for People With Developmental Disabilities. If such information is present, then the following [facility] mandated warning applies: This information has [...] law may result in a fine or correction sentence or both. A general authorization for the release of medical or other information is NOT sufficient authorization for further disc losure. Allergies and Adverse Reactions Type Description Substance Reaction Status Data Source(s ) Propensity to adverse reactions NO KNOWN ALLERGIES NO KNOWN ALLERGIES [facility] Encounters Encounter Providers Location Date Indications Data Source(s ) Emergency Attender: ALEYDA AVENDANO MDConsultant: [facility] 06/18/2021 10:33:00 PM EDT - 06/19/2021 01:04:00 AM EDT [facility] Patient discharged. Outpatient Attender: JULIET ALY NP 05/28/2021 12:00:[address] [facility] Outpatient Attender: JULIET ALY NP 05/07/2021 12:00:0 0 AM [facility] Outpatient Attender: JULIET ALY NP [facility]: JULIET ALY NPReferrer: ZULAY GUIDO [id number] 04/16/2021 12:00:00 AM EDT - [facility]16[facility]Y [facility]12[facility] ER PHYSICIAN 04/07/2021 04:34:41 PM E DT [facility] Emergency Attender: BETSY CARO MDAttender: ER PHYSI EDGAR 04/07/2021 03:16:00 PM EDT - 04/07/2021 07:52:00 PM EDT [facility] Patient discharged. Outpatient Attender: GAIL TROTTERBCReferrer: ZULAY DANG [id number] 04/05/2021 12:00:00 AM EDT - 04/05/2021 10:30:[address] [facility] Outpatient Attender: JULIET ALY NPReferrer: [id number] 03/23/2021 12:00:00 AM EDT - 03/23/2021 12:12:35 PM [facility] Echo<td><content [id number]">Echo</content>
<content><content styleCode="xSecondary xLabel">Encounter Diagnosis:</content><content ID="_[id number]" styleCode="xSecondary">Unspecified Diagnosis</content></content></td><td><content styleCode="xSecondary">12-Mar-2021 16:50 </content><content styleCode="xLabel xSecondary"> To </content><content styleCode="xSecondary">12-Mar-2021 16:53</content>
<content styleCode="xSecondary">[facility]</content>
</td><td></td> [facility] 04:50:46 PM EDT - 03/12/2021 04:53:31 PM EDT Unspecified Diagnosis [facility] ([facility]) Unspecified Diagnosis Inpatient Attender: CURRY HOLLOWAY JR 03/10/2021 11:50:09 PM EDT [facility] Inpatient Attender: CURRY HOLLOWAY JRAdmitter: CURRY BARTLETT JR 03/10/2021 11:15:00 PM EDT - 03/19/2021 01:32:00 PM EDT SEVERE IUGR TWINS [facility] spital SEVERE IUGR TWINS Patient discharged. Inpatient Attender: CURRY HOLLOWAY JR 03/10/2021 11:15:00 PM EDT [facility] Outpatient Attender: CURRY HOLLOWAY JRReferrer: ZULAY Palacios [id number] 12/31/2020 12:00:00 AM EDT - 12/31/2020 04:34:03 PM EDT Twin , dichorionic/diamniotic, unspecified trimester [facility] Twin , dichorionic/diamniotic, unspecified trimester Outpatient Attender: BRAYDEN RUSSELLReferrer: ZULAY SHARPE 12/31/2020 12:00:[address] [facility] Outpatient [address] [facility] [address] 12/02/2020 12:00:00 AM EDT eCW1 ([facility]) Emergency Attender: Chaitanya Christianson MDAttender: CHAITANYA CHRISTIANSON MD ER-ER 10/08/2020 03:43:00 AM EST - 10/08/2020 05:29:00 AM EST [facility] Patient discharged. Emergency Attender: ALEYDA AVENDANO MDConsultant: [facility] 09/18/2020 01:52:00 PM EST - 09/18/2020 04:30:00 PM [facility] Patient discharged. Medications Medication Brand Name Start Date Product Form Dose Route Admi nistrative Instructions Pharmacy Instructions Status Indications Reaction Description Data Source(s) 29 mg iron- 1 mg-25 mg 03/19/2021 12:00:00 AM EDT tablet 30 TAKE ONE TABLET BY MOUTH EVERY DAY TAKE ONE TABLET BY MOUTH EVERY DAY SOLD: 03/19/2021 [facility] 5 mg 03/19/2021 12:00:00 AM EDT tablet 14 TAKE ONE TABLET BY MOUTH EVERY 4 HOURS NEEDED FOR MODERATE PAIN . (SCALE 4 - 7) . MAXIMUM DAILY DOSE = 6 TAKE ONE TABLET BY MOUTH EVERY 4 HOURS NEEDED FOR MODERATE PAIN . (SCALE 4 - 7) . MAXIMUM DAILY DOSE = 6 SOLD: 03/19/2021 [facility] 100 mg 03/19/2021 12:00:00 AM EDT capsule 60 TAKE ONE CAPSULE BY MOUTH TWICE A DAY . TAKE ONE CAPSULE BY MOUTH TWICE A DAY . SOLD: 03/19/2021 [facility] 81 mg 03/19/2021 12:00:00 AM EDT tablet,delayed release (DR/EC) 60 TAKE ONE TABLET BY MOUTH EVERY MORNING . TAKE ONE TABLET BY MOUTH EVERY MORNING . SOLD: 03/19/2021 [facility] 400 mg/5 mL 03/19/2021 12:00:00 AM EDT suspension 300 TAKE 30 ML BY MOUTH ONCE DAILY NEEDED FOR CONSTIPATION . TAKE 30 ML BY MOUTH ONCE DAILY NEEDED FOR CONSTIPATION . SOLD: 03/19/2021 [facility] 30 mg 03/19/2021 12:00:00 AM EDT tablet extended release 90 TAKE TWO TABLETS BY MOUTH EVERY DAY . TAKE TWO TABLETS BY MOUTH EVERY DAY . SOLD: 03/19/2021 [facility] 600 mg 03/19/2021 12:00:00 AM EDT tablet 60 TAKE ONE TABLET BY MOUTH EVERY 6 HOURS . DO NOT START UNTIL 6 HOURS POST KETOROLAC . TAKE ONE TABLET BY MOUTH EVERY 6 HOURS . DO NOT START UNTIL 6 HOURS POST KETOROLAC . SOLD: 03/19/2021 [facility] 325 mg 03/19/2021 12:00:00 AM EDT tablet 60 TAKE THREE TABLETS BY MOUTH EVERY 6 HOURS . TAKE AT A REGULAR SCHEDULED TIME . TAKE THREE TABLETS BY MOUTH EVERY 6 HOURS . TAKE AT A REGULAR SCHEDULED TIME . SOLD: 03/19/2021 [facility] Triamcinolone Acetonide 1 MG/ML Topical Cream Triamcin olone Acetonide 0.1 % Triamcinolone Acetonide 0.1 % 12/02/2020 12:00:00 AM EDT active Triamcinolone Acetonide 0.1 % eCW1 ([facility]) Ketoconazole 20 MG/ML Medicated Shampoo Ketoconazole 2 % Ket oconazole 2 % 12/02/2020 12:00:00 AM EDT active Ketoconazole 2 % eCW1 ([facility]) Insurance Providers Payer name Policy type / Coverage type Policy ID Covered green party ID Covered green party's relationship to guerin Policy Guerin Plan Information U [id number] Self [id number] U [id number] Self [id number] U [id number] Self [id number] U [id number] Self [id number] HEA [id number] S [id number] SELF PAY HEA [id number] S [place] [id number] S [id number] [place] ACTIVE DUTY [id number] SP [id number] [place] - O/P [id number] 18 [id number] [place] [employer] - O/P [id number] 01 [id number] [facility] ACTIVE DUTY [id number] SP [id number] SELF PAY ONLY SP Problems, Conditions, and Diagnoses Code Display Name Description Problem Type Effective Dates Data Source(s) I10 Essential (primary) hypertension Essential (primary) h ypertension Diagnosis 06/18/2021 10:33:00 PM EDT [facility] O30.049 Twin , dichorionic/diamniotic, unspecified trimester Twin , dichorionic/diamniotic, unspecified trimester Diagnosis 12/31/2020 12:10:[address] [facility] Z87.891 Personal history of nicotine dependence PERSONAL HISTORY OF NICOTINE DEPENDENCE Diagnosis 10/08/2020 03:43:00 AM EST [facility] Z79.82 intermediate (current) use of aspirin NURSING HOME ([facility] RRENT) USE OF ASPIRIN Diagnosis 10/08/2020 03:43:00 AM [facility] Z3A.09 9 weeks gestation of 9 WEEKS GESTATION OF [place] EGNANCY Diagnosis 10/08/2020 03:43:00 AM [facility] O20.0 Threatened THREATENED Diagnosis 0 10/08/2020 03:43:00 AM [facility] O20.9 Hemorrhage in early , unspecifi ed HEMORRHAGE IN EARLY , UNSPECIFIED Diagnosis 10/08/2020 03:43:00 AM [facility] [id number] Personal history of nicotine dependence Personal history of nicotine dependence Diagnosis 09/18/2020 01:52:00 PM [facility] Z3A01 Less than 8 weeks gestation of Less than 8 weeks gestation of Diagnosis 09/18/2020 01:52:00 PM [facility] [id number] Other specified related condit ions, first trimester Other specified related conditions, first trimester Diagnosis 09/18/2020 01:52:00 PM [facility] Surgeries/Procedures No Information Results ID Date Data Source [id number] 06/18/2021 10:33:00 PM EDT [facility] 1 OrderSheet [facility] Emergency Department [address] [place] [address] Phone #: ext- [phone] 06/18/2021 22:13 Patient: MARGIE RIOS Sex: F : 2000 Age: 21yWEIGHT:106.5 kg (S) HEIGHT:66 inches (S) BMI:37.9ALLERGIES: No Known Drug AllergyCHIEF COMPLAINT: dizzinessDIAGNOSIS: Hypertensive disorderLAB ORDERSOrder Description Priority Entered Acknowledged InitialedUA Reflex to UA 22:34 06/18/2021 23:15 Edilma,Aleyda Gallegos MD; Jazlyn SearsHCG Urine Qual STAT 22:34 06/18/2021 23:15 Yfn [place] Norma MD; Jazlyn SearsCBC w Diff STAT 23:51 06/18/2021 23:59 Yfn [place] Norma MD; Jazlyn SearsCMP STAT 23:51 06/18/2021 23:59 Yfn [place] Norma MD; Jazlyn SearsDIAGNOSTIC STUDY ORDERSOrder Description Priority Entered Acknowledged InitialedMEDICATION/IV/DRIP/FLUID ORDERSOrder Description Priority Entered Acknowledged InitialedcloNIDine PO 0.1 23:51 06/18/2021 23:59 mg Yfn [place] Norma MD; Jazlyn SearsGENERAL ORDERSOrder Description Priority Entered Acknowledged Initialed[Electronically s igned by Jazlyn France R.N. (01:04 06/19/2021)][Electronically signed by Aleyda Avendano MD (11:31 06/20/2021)][Electronically locked by Jazlyn France R.N. (01:04 06/19/2021)] Name Value Range Interpretation Code Description Data Chayo rce(s) Supporting Document(s) ID Date Data Source [id number] 06/18/2021 10:33:00 PM EDT [facility] 1 Medication Reconciliation Report [facility] Emergency Department [address] [place] [address] Phone #: ext- [phone] 06/18/2021 22:13 Patient: MARGIE RIOS Sex: F : 2000 Age: 21yWeight: 106.5 kgHeight/Length: 66 in.BMI: 37.9ALLERGIES: No Known Drug AllergyThe patient's Home Medications are listed below:NONE.The source(s) of the original Home Medication information:Not obtained.The following Medications were given to the patient in the Emergency Department:Clonidine [PO] PO 0.1 mg, administered: 23:59 06/18/2021The following Medications were prescribed to the patient:None. Name Value Range Interpretation Code Description Data Chayo rce(s) Supporting Document(s) ID Date Data Source [id number] 06/18/2021 10:33:00 PM EDT [facility] 1 Medication Administration Record [facility] Emergency Department [address] [place] [address] Phone #: ext- [phone] 06/18/2021 22:13 Patient: MARGIE RIOS Sex: F : 2000 Age: 21yWeight: 106.5 kgHeight/Length: 66 inBMI: 37.9ALLERGIES: No Known Drug Allergy Date/Time Medication Administered Medication OrderedGiven CLONIDINE [PO] cloNIDine PO 0.1 mg23:59 06/18/2021 Dose: 0.1 mg Tablets Jazlyn Lynn R.N. Name Value Range Interpretation Code Description Data Chayo e(s) Supporting Document(s) ID Date Data Source [id number] 06/18/2021 10:33:00 PM EDT [facility] 1 General Instructions [facility] Emergency Department [address] [place] [address] Phone #: ext- [phone] 06/18/2021 22:13 Patient: MARGIE RIOS Sex: F : 2000 Age: 21yHypertension.INSTRUCTIONSDrink plenty of fluids.(It is imperative to follow up with your primary care physician and discuss your blood pressure. if yourblood pressure goes untreated you may have a heart attack, stroke or kidney failure requiring dialysis.please return if worse or any new symptoms.).Warnings: Further evaluation is necessary.GENERAL WARNINGS: Return or contact your physician immediately if your condition worsens orchanges unexpectedly, if not improving as expected, or if other problems arise.Your Current Medications: .No home medication.Follow-up:Follow up with your doctor Monday even if well. Call for an appointment. Reason for referral: evaluation.Summary of care provided to patient via paper.Understanding of the discharge instructions verbalized by patient. ADDITIONAL INFORMATIONHigh Blood Pressure, To Be Confirmed, No TreatmentYour blood pressure today was higher than normal. Sometimes anxiety, pain, or other issues cancause a short-term rise in blood pressure. It later returns to normal. Blood pressure that is high jimena time doesn't mean that you have high blood pressure (hypertension). High blood pressure is along-term (chronic) illness. But you should have your blood pressure measured again in the next fewdays to find out if it's still high. 2 General Instructions [facility] Emergency Department [address] [place] [address] edvin #: ext- [phone] 06/18/2021 22:13 Patient: MARGIE RIOS Sex: F : 2000 Age: 21yBlood pressure measurements are given as 2 numbers. Systolic blood pressure is the upper number.This is the pressure when the heart contracts. Diastolic blood pressure is the lower number. This isthe pressure when the heart relaxes between beats. You will see your blood pressure readingswritten together. For example, a person with a systolic pressure of 118 and a diastolic pressure of 78will have 118/78 written in the medical record.Blood pressure is classified as normal, raised (elevated), or stage 1 or stage 2 high blood pressure: Normal blood pressure. Systolic of less than 120 and diastolic of less than 80 (120/80). Elevated blood pressure. Systolic of 120 to 129 and diastolic less than 80. Stage 1 high blood pressure. Systolic is 130 to 139 or diastolic between 80 to 89. Stage 2 high blood pressure. Systolic is 140 or higher or the diastolic i s 90 or higher.Lifestyle changes can help manage your blood pressure. These include weight loss, exercise, andquitting smoking. Have your blood pressure checked regularly to be sure it is under control.Home careTo track your blood pressure, your healthcare provider may ask you to come into the office atdifferent times and on different days. If your provider asks you to check your readings at home, askhim or her what times of the day to test and for how many days. Before you leave the office, ask yourprovider to show you how to take your blood pressure. Ask questions if you don't understandsomething.Using a home blood pressure monitorThink about buying an automatic blood pressure monitor. Ask your provider for a recommendation aswell as the correct size cuff to fit your arm. You can buy blood pressure monitors at most pharmacies.The [place] [employer] advises the following guidelines for home blood pressure monitoring: Don't smoke or drink coffee or other caffeinated drinks for 30 mi nutes before taking your blood pressure. Go to the bathroom before the test. 3 General Instructions [facility] Emergency Department [address] [place] [address] Phone #: ext- [phone] 06/18/2021 22:13 Patient: MARGIE RIOS Sex: F : 2000 Age: 21y Relax for 5 minutes before taking the measurement. Sit with your back supported (don't sit on a couch or soft chair). Keep your feet on the floor uncrossed. Place your arm on a solid flat surface (like a table) with the upper part of the arm at heart level. Place the middle of the cuff directly above the bend of the elbow. Check the monitor's instruction manual for an illustration. Take multiple readings. When you measure, take 2 to 3 readings one minute apart. Record all of the results. Take your blood pressure at the same time every day, or as your provider advises. Record the date, time, and blood pressure reading. Take the record with you to your next medical appointment. If your blood pressure monitor has a built-in memory, simply take the monitor with you to your next appointment. Call your provider if you have several high readings. Don't be frightened by a single high blood pressure reading. But if you get a few high readings, check in with your provider.Follow-up careKeep all of your follow-up appointments. If your blood pressure is more than 120 over 80 on 2 out of 3days, you will need to follow up with your healthcare provider for more evaluation and treatment.Don't put this off! High blood pressure can be treated. High blood pressure that's not treated raisesyour risk for heart attack, heart failure, kidney disease, and stroke.Call 911Call 911 if you have any of these: Blood pressure of 180/120 or higher Chest pain or shortness of breath Weakness of an arm or leg or one side of the face Problems speaking or seeingWhen to get medical adviceCall your healthcare provider right away if any of these occur: Severe headache Throbbing or rushing sound in the ears 4 General Instructions [facility] Emergency Department [address] [place] [address] Phone #: ext- [phone] 06/18/2021 22:13 Patient: MARGIE RIOS Sex: F : 2000 Age: 21y Nosebleed Sudden severe pain in your belly (abdomen) Extreme drowsiness, confusion, or fainting Dizziness or dizziness with spinning feeling (vertigo) [id number] [employer]. [address] [place] [address]. All rights reserved. This information is not intended as asubstitute for professional medical care. Always follow your healthcare professional's instructions. You have been given the following additional information: Hypertension, To Be Confirmed(Electronically signed by Aleyda Avendano MD 06/20/2021 11:31) Name Value Range Interpretation Code Description Data Chayo rce(s) Supporting Document(s) ID Date Data Source [id number] 06/18/2021 10:33:00 PM EDT [facility] 1 Clinical Report - Nurses [facility] Emergency Department [address] [place] [address] Phone #: [phone]- [phone] 06/18/2021 22:13 Patient: MARGIE RIOS Sex: F : 2000 Age: 21yTRIAGEArrived by private vehicle. Historian: patient. ( pt c/o dizziness that comes and goes denies syncope).Acuity: LEVEL 4.Chief Complaint: DIZZINESS.This started 3 days ago. --22:55 06/18/21 Jazlyn France R.N.22:55 06/18/21. BP: 158/102. MAP: 120. HR: 72. RR: 16. O2 saturation: 100% on room air. Temp: 98 F(oral). Pain level now: 0/10. --22:57 06/18/21 Jazlyn France R.N.Weight: 106.5 kg stated. Height/Length: 66 inches Per Patient. BMI: 37.9. --22:52 06/18/21 Jazlyn France R.N.MedicationsNone. --22:53 06/18/21 Jazlyn France R.N.AllergiesNo Known Drug Allergy. --22:53 06/18/21 Jazlyn France R.N.PROBLEMS:Hypertension.Ovarian Cyst.OB History.STD - Sexually Transmitted Disease. --22:54 06/18/21 Jazlyn Franec R.N.ADDITIONAL SURGERIES:. --22:54 06/18/21 Jazlyn France R.N.HistorySOCIAL HX: Current some days smoker. Alcohol use; consumes beer occasionally. No drug use. Shewas offered HIV testing but declined and hepatitis C testing but declined. She has not traveled outside the.[place].Infectious disease exposure: No infectious disease exposure.SELF HARM ASSESSMENT: Self harm assessment was performed. The patient answered "no" to thequestion(s) "Have you recently felt down, depressed, or hopeless?" and "Do you have thoughts of harmingor killing yourself?".ABUSE ASSESSMENT: No report of abuse. 2 Clinical Report - Nurses [facility] Emergency Department [address] [place] [address] Phone #: ext- [phone] 06/18/2021 22:13 Patient: MARGIE RIOS Sex: F : 2000 Age: 21y NUTRITIONAL RISK ASSESSMENT: The nutritional risk assessment revealed no deficiencies. FUNCTIONAL ASSESSMENT: Functional assessment: no impairments noted. LEARNING NEEDS ASSESSMENT: The learning needs assessment revealed no barriers. FALL RISK ASSESSMENT: Fall risk assessment completed. Risk factors identified include dizziness. Fall interventions initiated. Call light in reach of patient. Instructed not to get up without assistance. Instructions given to patient including fall prevention information. Verbalizes understanding. SKIN INTEGRITY ASSESSMENT: Skin integrity risk assessment completed. No skin integrity risk identified. --22:55 06/18/21 Jazlyn France R.N.NURSING PROGRESS NOTESThe plan of care for this patient has been created. Monitoring of patient in place. Patient gowned. Headof bed elevated. Reassurance given. Call light placed in reach. Side rails up x 1. Bed placed in lowestposition. Brakes of bed on. Patient ready for evaluation- ED physician notified. --22:58 06/18/21 Jazlyn France R.N. Patient ID band checked for patient name and birthdate: patient confirmed. Instructions provided to collect clean catch urine and patient verbalized understanding urine collected with return of yellow-colored clear urine; sample sent to lab for urinalysis and HCG. Specimen labeled in the presence of the patient. --23:15 06/18/21 Jazlyn France R.N. 23:59 06/18/2021 Clonidine PO Tablets 0.1 mg given. Allergies verified and confirmed 5 rights. Information reviewed with patient including reason for taking this medication, signs of allergic reaction and precautions. Verbalizes understanding. --23:59 06/18/21 Jazlyn France R.N. Patient ID band checked for patient name and birthdate: patient confirmed. Blood samples drawn with 23g butterfly by nurse per protocol ; labeled in presence of the patient and sent to lab: purple and tiger top. --00:00 06/19/21 Jazlyn France R.N.DISPOSITION / DISCHARGE 00:38 06/19/21. BP: 130/80. MAP: 96. HR: 66. RR: 16. O2 saturation: 100% on room air. Temp: 97.6 F. Pain level now: 0/10. --00:38 06/19/21 Jazlyn France R.N. Condition at departure: improved. No learning barriers present. Reviewed medication(s). Treatments reviewed. Patient verbalized understanding. Written instructions provided in Bangladeshi. The patient was discharged by the physician. She was discharged home. She left ambulatory and via private vehicle. Patient driving. --00:38 06/19/21 Jazlyn France R.N. 3 Clinical Report - Nurses [facility] Emergency Department [address] [place] [address] Phone #: ext- [phone] 06/18/2021 22:13 Patient: MARGIE RIOS Sex: F : 2000 Age: 21yLocked/Released at 06/19/2021 01:04 by Jazlyn France R.N. Name Value Range Interpretation Code Description Data Chayo rce(s) Supporting Document(s) ID Date Data Source [id number] 06/18/2021 10:33:00 PM EDT [facility] 1 Clinical Report - Physicians/Mid Levels [facility] Emergency Department [address] [place] [address] Phone #: ext- [phone] 06/18/2021 22:13 Patient: MARGIE RIOS Sex: F : 2000 Age: 21y Arrived- By private vehicle. Historian- patient. Disposition decision: 23:22 06/18/2021.HISTORY OF PRESENT ILLNESS Chief Complaint: dizzy. This started 2 weeks and now gone. The symptoms are described as mild. No abdominal pain, pelvic pain, vaginal pain, low back pain or flank pain. No pain with urination, urinary frequency or urgency of urination. Does not use control measures. (pt c/o dizziness that comes and goes denies syncope). Similar symptoms previously. Recent medical care: Not recently seen/assessed.REVIEW OF SYSTEMSNo nausea, vomiting, diarrhea, black stools or fever. No chills, anorexia, eye discomfort or sore throat orthroat. No cough, difficulty breathing or chest pain or pain. No skin rash or rash, joint pain, chills or fever.No double vision, ear pain, runny nose, cough or abdominal pain. No diarrhea, nausea, vomiting, urinaryfrequency or hematuria. No back pain, neck pain, seizure, easy bruising or difficulty with urination. Thepatient has had a headache and headache.PAST HISTORYSee nurses notes. Problems: Hypertension. OB History. Additional Surgeries: . Medications: None. Allergies: No Known Drug Allergy.SOCIAL HISTORYNo drug use.ADDITIONAL NOTES 2 Clinical Report - Physicians/Mid [facility] Emergency Department [address] [place] [address] Phone #: ext- [phone] 06/18/2021 22:13 Patient: MARGIE RIOS Sex: F : 2000 Age: 21y The nursing notes have been reviewed.PHYSICAL EXAMVital Signs: 06/18/2021 22:55 BP: 158/102. MAP: 120. HR: 72. RR: 16. O2 saturation: 100% on room air.Temp: 98 F. Pain level now: 0/10. Have been reviewed and appear to be correct. Blood pressurenormal. Mean arterial pressure- normal. Heart rate normal. Respiratory rate normal. Temperaturenormal. Oxygen saturation normal.Appearance: Alert. Oriented X3. No acute distress.HEENT: Normal external inspection.ENT: Pharynx normal.Neck: Neck supple.CVS: Heart sounds normal.Respiratory: No respiratory distress. Painless inspiration. Breath sounds normal. Chest nontender.Abdomen: Soft and nontender. Bowel sounds normal.Back: Normal external inspection.Skin: Skin warm and dry. Normal skin color. No rash. Normal skin turgor.Extremities: Extremities nontender. No lower extremity edema.Neuro: Oriented X 3. Mood/affect normal. No motor deficit. No sensory deficit.LABS, X-RAYS, AND EKGLaboratory Tests: CBC w Diff: (ROOPA: 06/18/2021 23:53) ( MsgRcvd 06/19/2021 00:09) Final results Test Result Flag Units (Reference) CBC W/AUTOMATED DIFF COMPLETE BLOOD COUNT WBC 7.5 10/uL (4.2 - 11.0) RBC 4.32 10/uL (4.20 - 5.40) HEMOGLOBIN 12.9 g/dL (12.0 - 16.0) HEMATOCRIT 38.2 % (37.0 - 47.0) MCV 88.4 fL (81.0 - 101) MCH 29.9 pg (27.0 - 34.0) MCHC 33.8 g/dL (31.0 - 36.0) RDW 14.3 % (11.5 - 14.5) PLATELETS 217 10/uL (150 - 450) MPV 11.1 H fL (7.4 - 10.4) NEUT 53.3 % (37.0 - 80.0) LYMPH 37.8 % (25.0 - 40.0) MONO 6.1 % (3.0 - 8.0) EOS 2.0 % (0.0 - 7.0) BASO 0.7 % (0.0 - 2.5) %IG 0.1 H % (0.0 - 0.0) %NRBC 0.0 % (0.0 - 0.0) #NEUT 4.01 10/uL (2.00 - 6.90) #LYMPH 2.85 10/uL (0.60 - 3.40) #MONO 0.46 10/uL (0.00 - 0.90) #EOS 0.15 10/uL (0.00 - 0.70) #BASO 0.05 10/uL (0.00 - 0.20) #IG 0.01 10/uL (0.00 - 0.10) #NRBC 0.00 10/uL (0.00 - 0.00) MANUAL DIFF NOT INDICATED RBC MORPH NOT INDICATED 3 Clinical Report - Physicians/Mid Levels [facility] Emergency Department [address] [place] [address] Phone #: ext- [phone] 06/18/2021 22:13 Patient: MARGIE RIOS Sex: F : 2000 Age: 21yCMP: (ROOPA: 06/18/2021 23:53) ( MsgRcvd 06/19/2021 00:49) Final results Test Result Flag Units (Reference) COMPREHENSIVE METABOLIC PANEL COMPREHENSIVE METABOLIC PANEL SODIUM 138 mEq/L (134 - 153) POTASSIUM 3.9 mEq/L (3.6 - 5.0) CHLORIDE 105 mEq/L (98 - 107) CO2 23 MEQ/L (22 - 30) GLUCOSE 101 H MG/DL (70 - 99) BUN 16 MG/DL (7 - 21) CREATININE 0.8 MG/DL (0.7 - 1.5) B UN/CREAT 20 (8 - 27) TOTAL PROTEIN 6.7 G/DL (6.3 - 8.2) ALBUMIN 4.2 G/DL (3.9 - 5.0) GLOBULIN 2.5 GM/DL (2.4 - 3.2) A/G RATIO 1.7 (0.8 - 2.0) CALCIUM 9.5 MG/DL (8.4 - 10.2) TOTAL BILI <0.7 MG/DL (0.2 - 1.3) ALKALINE PHOS 82 U/L (38 - 126) SGOT/AST 20 U/L (5 - 40) SGPT/ALT 27 U/L (7 - 56) ANION GAP 10.0 mmol/L (8.0 - 16.0) AGE 21 yrs NON-AA GFR >60 mL/min AFR AMER GFR >60 mL/min Male GFR Interprentation 20-49 yrs >60 mL/min Ojkktf69-48 yrs >56 mL/min Normal 60-69 yrs >49 mL/min Normal 70-79yrs>42 mL/min Normal 80 and above >35 mL/min Normal Female GFRInterpretation 20-39 yrs >60 mL/min Normal 40-49 yrs >58 mL/minNormal 50-59 yrs >51 mL/min Normal 60-69 yrs >45 mL/min Jstrap94-69 yrs >39 mL/min Normal 80 and above >32 mL/min NormalUA REFLEX TO UA CULTURE: (ROOPA: 06/18/2021 23:03) ( MsgRcvd 06/18 23:27) Final results Test Result Flag Units (Reference) UA REFLEX TO UA CULTURE URINALYSIS SOURCE R COLOR yellow (NORMAL: Yello CLARITY clear (NORMAL: Clear SPEC GRAVITY 1.020 (1.001 - 1.030 pH 6 (5 - 9) GLUCOSE NORM (NORMAL: Negat BILIRUBIN NEG (NORMAL: Negat KETONE NEG (NORMAL: Negat PROTEIN NEG (NORMAL: Negat NITRITE NEG (NORMAL: Negat BLOOD NEG (NORMAL: Negat LEUK EST 25 (NORMAL: Negat UROBILINOGEN NOR (less than 1.0 MICROSCOPIC See Below WBC 3 - 5 (NORMAL: NONE RBC 0 - 1 (NORMAL: NONE EPITHELIAL MODERATE A (NORMAL: NONE MUCOUS Trace (NORMAL: NONEBeta-HCG, Qual Urine: (ROOPA: 06/18/2021 23:03) ( MsgRcvd 06/18/2021 23:28) Final results 4 Clinical Report - Physicians/Mid Levels [facility] Emergency Department [address] [place] [address] Phone #: ext- [phone] 06/18/2021 22:13 Patient: MARGIE RIOS Sex: F : 2000 Age: 21y Test Result Flag Units (Reference) HCG URINE QUAL NEGATIVE (NORMAL: NEGAT HCG URINE QL REENTER NEGATIVE (NORMAL: NEGAT { KIT LOT # [id number] ){ KIT EXP DATE 09-10-22 ){ PROCEDURAL CONTROL VALID ).PROGRESS AND PROCEDURESCourse of Care: pt is a 21 year old female who presents for headache and dizziness. she states she hashad dizziness in the past. she just had a baby 3 months ago. today her bp is elevated. I discussed withher that her headache and dizziness is most likely related to her high bp. she is past the post partumperiod to be cautious about eclampsia. I reviewed this with the patient. I discussed the importance to f/jose manuelith pcp. labs grossly nl. Patient/family counseled. Disposition: Discharged. Condition: good and stable.CLINICAL IMPRESSION Hypertension.INSTRUCTIONS Drink plenty of fluids. (It is imperative to follow up with your primary care physician and discuss your blood pressure. if your blood pressure goes untreated you may have a heart attack, stroke or kidney failure requiring dialysis. please return if worse or any new symptoms.). Warnings: Further evaluation is necessary. GENERAL WARNINGS: Return or contact your phys ician immediately if your condition worsens or changes unexpectedly, if not improving as expected, or if other problems arise. Your Current Medications: . No home medication. Follow-up: Follow up with your doctor Monday even if well. Call for an appointment. Reason for referral: evaluation. Summary of care provided to patient via paper. 5 Clinical Report - Physicians/Mid Levels [facility] Emergency Department [address] [place] [address] Phone #: ext- [phone] 06/18/2021 22:13 Patient: MARGEI RIOS Sex: F : 2000 Age: 21y Understanding of the discharge instructions verbalized by patient.(Electronically signed by Aleyda Avendano MD 06/20/2021 11:31) Name Value Range Interpretation Code Description Data Chayo rce(s) Supporting Document(s) ID Date Data Source [id number] 06/19/2021 12:49:00 AM EDT [facility] Name Value Range Interpretation Code Description Data Chayo rce(s) Supporting Document(s) COMPREHENSIVE METABOLIC PANEL [facility] COMPREHENSIVE METABOLIC PANEL Sodium [Moles/volume] in Serum or Plasma 138 mEq/L 134 - 153 [facility] Potassium [Moles/volume] in Serum or Plasma 3.9 mEq/L 3.6 - 5.0 [facility] Chloride [Moles/volume] in Serum or Plasma 105 mEq/L 98 - 107 [facility] Carbon dioxide, total [Moles/volume] in Serum or Plasma 23 MEQ/L 22 - 30 [facility] Glucose [Mass/volume] in Serum or Plasma 101 MG/DL 70 - 99 H [facility] BUN 16 MG/DL 7 - 21 [facility] Creatinine [Mass/volume] in Serum or Plasma 0.8 MG/DL 0.7 - 1.5 [facility] BUN/CREAT 20 8 - 27 [facility] al Protein [Mass/volume] in Serum or Plasma 6.7 G/DL 6.3 - 8.2 [facility] Albumin [Mass/volume] in Serum or Plasma 4.2 G/DL 3.9 - 5.0 [facility] Globulin [Mass/volume] in Serum by calculation 2.5 GM/DL 2.4 - 3.2 [facility] A/G RATIO 1.7 0.8 - 2.0 [facility] Calcium [Mass/volume] in Serum or Plasma 9.5 MG/DL 8.4 - 10.2 [facility] Bilirubin.total [Mass/volume] in Serum or Plasma <0.7 MG/DL 0.2 - 1.3 [facility] Alkaline phosphatase [Enzymatic activity/volume] in Serum or Plasma 82 U/L 38 - 126 [facility] Aspartate aminotransferase [Enzymatic activity/volume] in Serum or Plasma 20 U/L 5 - 40 [facility] Alanine aminotransferase [Enzymatic activity/volume] in Seru m or Plasma 27 U/L 7 - 56 [facility] Anion gap 3 in Serum or Plasma 10.0 mmol/L 8.0 - 16.0 [facility] AGE 21 yrs [facility] NON-AA GFR >60 mL/min [facility] ital AFR AMER GFR >60 mL/min [facility] spital Male GFR In terprentation [...] >32 mL/min Normal ID Date Data Source [id number] 06/19/2021 12:08:00 AM EDT [facility] Name Value Range Interpretation Code Description Data Chayo rce(s) Supporting Document(s) CBC W/AUTOMATED DIFF [facility] COMPLETE BLOOD COUNT Leukocytes [#/volume] in Blood by Automated count 7.5 10^3/uL 4.2 - 1 1.0 [facility] Erythrocytes [#/volume] in Blood by Automated count 4.32 10^6/uL 4. 20 - 5.40 [facility] Hemoglobin [Mass/volume] in Blood 12.9 g/dL 12.0 - 16.0 [facility] Hematocrit [Volume Fraction] of Blood by Automated count 38.2 % 3 7.0 - 47.0 [facility] Erythrocyte mean corpuscular volume [Entitic volume] by Auto mated count 88.4 fL 81.0 - 101 [facility] Erythrocyte mean corpuscular hemoglobin [Entitic mass] by Automated count 29.9 pg 27.0 - 34.0 [facility] Erythrocyte mean corpuscular hemoglobin concentration [Mass/volume] by Automated count 33.8 g/dL 31.0 - 36.0 [facility] Erythrocyte distribution width [Ratio] by Automated count 14.3 % 11.5 - 14.5 [facility] Platelets [#/volume] in Blood by Automated count 217 10^3/uL 150 - 45 0 [facility] Platelet mean volume [Entitic volume] in Blood by Automated count 11.1 fL 7.4 - 10.4 H [facility] Neutrophils/100 leukocytes in Blood by Automated count 53.3 % 37. 0 - 80.0 [facility] Lymphocytes/100 leukocytes in Blood by Manual count 37.8 % 25.0 - 40.0 [facility] Monocytes/100 leukocytes in Blood by Automated count 6.1 % 3.0 - 8.0 [facility] Eosinophils/100 leukocytes in Blood by Automated count 2.0 % 0.0 - 7.0 [facility] Basophils/100 leukocytes in Blood by Automated count 0.7 % 0.0 - 2.5 [facility] %IG 0.1 % 0.0 - 0.0 [facility] %NRBC 0.0 % 0.0 - 0.0 [facility] al Neutrophils [#/volume] in Blood by Automated count 4.01 10^3/uL 2.00 - 6.90 [facility] Lymphocytes [#/volume] in Blood by Automated count 2.85 10^3/uL 0.60 - 3.40 [facility] Monocytes [#/volume] in Blood by Automated count 0.46 10^3/uL 0.00 - 0.90 [facility] Eosinophils [#/volume] in Blood by Automated count 0.15 10^3/uL 0.00 - 0.70 [facility] Basophils [#/volume] in Blood by Automated count 0.05 10^3/uL 0.00 - 0.20 [facility] #IG 0.01 10^3/uL 0.00 - 0.10 [facility] H ospital #NRBC 0.00 10^3/uL 0.00 - 0.00 [facility] ospital MANUAL DIFF NOT INDICATED [facility] RBC MORPH NOT INDICATED [facility] spital ID Date Data Source [id number] 06/18/2021 11:27:00 PM EDT [facility] Name Value Range Interpretation Code Description Data Chayo rce(s) Supporting Document(s) HCG URINE QUAL NEGATIVE NORMAL: NEGATIVE [facility] HCG URINE QL REENTER NEGATIVE NORMAL: NEGATIVE [facility] { KIT LOT # [id number] ){ KIT EXP DATE 09-10-22 ){ PROCEDURAL CONTROL VALID ) ID Date Data Source [id number] 06/18/2021 11:27:00 PM EDT [facility] Name Value Range Interpretation Code Description Data Chayo rce(s) Supporting Document(s) UA REFLEX TO UA CULTURE [facility] URINALYSIS SOURCE R [facility] COLOR yellow NORMAL: Yellow [facility]sp[facility] CLARITY clear NORMAL: Clear [facility] spital Specific gravity of Urine by Test strip 1.020 1.001 - 1.030 [facility] pH 6 5 - 9 [facility] al Glucose [Mass/volume] in Urine by Test strip NORM NORMAL: Negat eliezer [facility] Bilirubin.total [Presence] in Urine by Test strip NEG NORMAL: Negative [facility] Ketones [Presence] in Urine by Test strip NEG NORMAL: Negative [facility] Protein [Mass/volume] in Urine by Test strip NEG NORMAL: Negat eliezer [facility] Nitrite [Presence] in Urine by Test strip NEG NORMAL: Negative [facility] BLOOD NEG NORMAL: Negative [facility] Leukocyte esterase [Presence] in Urine by Test strip 25 ALEYDA L: Negative [facility] Urobilinogen [Mass/volume] in Urine by Test strip NOR less concha n 1.0 mg/dL [facility] MICROSCOPIC See Below [facility] Hosp ital WBC 3 - 5 NORMAL: NONE SEEN [facility] Erythrocytes [#/volume] in Urine by Test strip 0 - 1 NORMAL: NON E SEEN [facility] EPITHELIAL MODERATE NORMAL: NONE SEEN A [facility] Mucus [Presence] in Urine sediment by Light microscopy Trace NORMAL: NONE SEEN [facility] ID Date Data Source [id number] 06/17/2021 09:30:00 AM EDT [facility] Name Value Range Interpretation Code Description Data Chayo rce(s) Supporting Document(s) SARS coronavirus 2 RNA Not Detected [facility] This lab was ordered by [facility] and reported by [facility]. ID Date Data Source [id number] 04/16/2021 01:55:15 PM EDT [facility] Name Value Range Interpretation Code Description Data Chayo rce(s) Supporting Document(s) Progress Note [facility] [id number] [file] [id number] ID Date Data Source [id number] 04/16/2021 06:04:36 PM EDT [facility] Name Value Range Interpretation Code Description Data Chayo rce(s) Supporting Document(s) Albumin [Mass/volume] in Serum or Plasma by Bromocresol green (BCG) dye binding method 4.3 g/dL 3.5-5.2 [facility] Bilirubin.total [Mass/volume] in Serum or Plasma 0.3 mg/dL <1.2 [facility] Bilirubin.direct [Mass/volume] in Serum or Plasma <0.3 [facility] Alkaline phosphatase [Enzymatic activity/volume] in Serum or Plasma 118 U/L 35-[address] [facility] Aspartate aminotransferase [Enzymatic activity/volume] in Serum or Plasma 20 U/L <32 [facility] Alanine aminotransferase [Enzymatic activity/volume] in Seru m or Plasma 31 U/L <33 [facility] Protein [Mass/volume] in Serum or Plasma 7.4 g/dL 6.4-8.3 [facility] ID Date Data Source [id number] 04/07/2021 05:20:03 PM EDT [facility] Name Value Range Interpretation Code Description Data Chayo rce(s) Supporting Document(s) LDH 184 U/L (84-246) [facility] ID Date Data Source [id number] 04/07/2021 05:20:03 PM EDT [facility] Name Value Range Interpretation Code Description Data Chayo rce(s) Supporting Document(s) SODIUM 142 mmol/L (136-145) [facility] POTASSIUM 4.1 mmol/L (3.6-5.2) [facility] CHLORIDE 109 mmol/L (100-108) H [facility] CO2 25 mmol/L (22-31) [facility] ANION GAP 8 mmol/L (7-16) [facility] UREA NITROGEN 12 mg/dL (7-24) [facility] CREATININE 0.86 mg/dL (0.60-1.00) [facility] BUN/CREAT RATIO 14.0 RATIO (10.0-20.0) [facility] GLUCOSE 85 mg/dL (70-99) [facility] CALCIUM 9.1 mg/dL (8.4-10.2) [facility] TOTAL PROTEIN 7.6 g/dL (6.4-8.2) [facility] ALBUMIN 3.6 g/dL (3.5-4.6) [facility] GLOBULIN 4.0 g/dL (2.7-4.3) [facility] ALB/GLOB RATIO 0.9 RATIO [facility] ALKALINE PHOSPHATASE 124 U/L (45-117) H [facility] BILIRUBIN,TOTAL 0.3 mg/dL (0.0-1.0) [facility] PLEASE NOTE:Total bilirubin results may be falselyelevated in patients taking Eltrombopag. AST (SGOT) 12 U/L (11-39) [facility] ALT (SGPT) 32 U/L (12-78) [facility] GFR >60 ml/min/1.73m2 (>59) [facility] GFR ( [place]) >60 ml/min/1.73m2 (>59) [facility] GFR INTERPRETATION [facility] --NORMAL KIDNEY FUNCTION OR MILD DISEASE - GFR >OR= 60CHRONIC KIDNEY DISEASE - GFR 15 - 59RENAL FAILURE - GFR <15 Est. GFR calculation based on the MDRDstudy equation, which assumes a steadystate for creatinine. Est. GFR should notbe used for medication dosing. ID Date Data Source [id number] 04/07/2021 05:20:03 PM EDT [facility] Name Value Range Interpretation Code Description Data Chayo rce(s) Supporting Document(s) URIC ACID 9.3 mg/dL (2.6-6.0) H [facility] ID Date Data Source [id number] 04/07/2021 04:34:41 PM EDT [facility] Name Value Range Interpretation Code Description Data Chayo rce(s) Supporting Document(s) WBC 7.4 10*3/uL (4.1-11.0) [facility] RBC 5.27 10*6/uL (4.00-5.40) [facility] HGB 15.4 g/dL (12.0-16.0) [facility] HCT 47.1 % (36.0-47.0) H [facility] MCV 89.4 fL (80.0-95.0) [facility] MCH 29.3 pg (27.0-32.0) [facility] MCHC 32.7 g/dL (32.0-36.0) [facility] RDW 14.3 % (10.5-14.5) [facility] PLT 259 10*3/uL (150-450) [facility] MPV 9.8 fL (7.1-10.7) [facility] ID Date Data Source [id number] 04/08/2021 03:01:19 PM EDT [facility] SPECIMEN DESCRIPTION URINE, COLLE CTION METHOD NOT SPECIFIEDCULTURE RESULTS NO GROWTHREPORT STATUS FINAL 04/08/2021 Name Value Range Interpretation Code Description Data Chayo rce(s) Supporting Document(s) ID Date Data Source [id number] 04/07/2021 05:00:08 PM EDT [facility] Name Value Range Interpretation Code Description Data Chayo rce(s) Supporting Document(s) URINE WBC (0-5) [facility] URINE RBC (0-2) [facility] EPITHELIAL CELLS 1+ [HPF] [facility] ID Date Data Source [id number] 04/07/2021 04:35:47 PM EDT [facility] Name Value Range Interpretation Code Description Data Chayo rce(s) Supporting Document(s) COLOR [facility] APPEARANCE [facility] SPEC GRAV URINE 1.006 (1.003-1.030) [facility] PH URINE 5.5 (5.0-7.5) [facility] LEUK ESTERASE (NEG) A [facility] NITRITE URINE (NEG) [facility] PROTEIN URINE (NEG) A [facility] GLUCOSE URINE (NEG) [facility] KETONE URINE (NEG) [facility] UROBILINOGEN 0.2 mg/dL (0-1.0) [facility] BILIRUBIN URINE (NEG) [facility] BLOOD/HGB URINE 2+ (NEG) A [facility] ID Date Data Source [id number] 04/05/2021 02:37:47 PM EDT [facility] Name Value Range Interpretation Code Description Data Chayo rce(s) Supporting Document(s) Albumin [Mass/volume] in Serum or Plasma by Bromocresol green (BCG) dye binding method 4.0 [facility] Bil[facility].total [Mass/volume] in Serum or Plasma 0.3 mg/dL <1.2 [facility] Calcium [Mass/volume] in Serum or Plasma 9.0 mg/dL 8.6-10.0 [facility] Chloride [Moles/volume] in Serum or Plasma 104 mmol/L 98-107 [facility] Creatinine [Mass/volume] in Serum or Plasma 0.82 mg/dL 0.50-0.90 [facility] Glucose [Mass/volume] in Serum or Plasma 77 mg/dL 70-140 [facility] Alkaline phosphatase [Enzymatic activity/volume] in Serum or Plasma 111 U/L 35-[address] [facility] Potassium [Moles/volume] in Serum or Plasma 4.1 mmol/L 3.4-5.1 [facility] Protein [Mass/volume] in Serum or Plasma 6.9 g/dL 6.4-8.3 [facility] Sodium [Moles/volume] in Serum or Plasma 140 mmol/L 136-145 [facility] Aspartate aminotransferase [Enzymatic activity/volume] in Serum or Plasma 13 U/L <32 [facility] Urea nitrogen [Mass/volume] in Serum or Plasma 9 mg/dL 6-20 [facility] Osmolality of Serum or Plasma by calculation 287 mosm/kg 275-300 [facility] Creatinine/Urea nitrogen [Mass Ratio] in Serum or Plasma 11 [facility] Bicarbonate [Moles/volume] in Serum 24 mmol/L 22-29 [facility] Alanine aminotransferase [Enzymatic activity/volume] in Seru m or Plasma 21 U/L <33 [facility] Anion gap 3 in Serum or Plasma 12 mmol/L 8-15 [facility] Glomerular filtration rate/1.73 sq M pre dicted among non-blacks [Volume Rate/Area] in Serum or Plasma by Creatinine-based formula (MDRD) >[address] [facility] Glomerular filtration rate/1.73 sq M pre dicted among blacks [Volume Rate/Area] in Serum or Plasma by Creatinine-based formula (MDRD) >60 [facility] ID Date Data Source [id number] 04/05/2021 02:37:47 PM [facility] Name Value Range Interpretation Code Description Data Chayo rce(s) Supporting Document(s) Urate [Mass/volume] in Serum or Plasma 8.6 mg/dl 2.4-5.[address] [facility] ID Date Data Source [id number] 04/05/2021 03:07:[address] [facility] Value Range Interpretation Code Description Data Chayo rce(s) Supporting Document(s) Lactate dehydrogenase [Enzymatic activit y/volume] in Serum or Plasma by Lactate to pyruvate reaction 205 U/L 122-214 [facility] ID Date Data Source [id number] 04/05/2021 04:53:[address] [facility] Value Range Interpretation Code Description Data Chayo rce(s) Supporting Document(s) Leukocytes [#/volume] in Blood by Automated count 5.0 10*3/uL 4-10 [facility] Erythrocytes [#/volume] in Blood by Automated count 4.77 10*6/uL 4.1- 5.3 [facility] Hemoglobin [Mass/volume] in Blood 14.2 g/dL 11.5-15.5 [facility] Hematocrit [Volume Fraction] of Blood by Automated count 43.6 % 3 6-45 [facility] Erythrocyte mean corpuscular volume [Entitic volume] by Auto mated count 91.4 fL 80-96 [facility] Erythrocyte mean corpuscular hemoglobin [Entitic mass] by Automated count 29.8 pg 27-33 [facility] Erythrocyte mean corpuscular hemoglobin concentration [Mass/volume] by Automated count 32.6 g/dL 32.0-36.0 [facility] distribution width [Ratio] by Automated count 13.8 % 11.5-14.5 [facility] Platelets [#/volume] in Blood by Automated count 238 10*3/uL 150-400 [facility] Confirmed Differential cell count method - Blood [facility] Neutrophils/100 leukocytes in Blood by Automated count 57 % [facility] Lymphocytes/100 leukocytes in Blood by Automated count 35 % [facility] Monocytes/100 leukocytes in Blood by Automated count 5 % [facility] Eosinophils/100 leukocytes in Blood by Automated count 2 % [facility] Basophils/100 leukocytes in Blood by Automated count 1 % [facility] Neutrophils [#/volume] in Blood by Automated count 2.92 10*3/uL 1.8-[address] [facility] Lymphocytes [#/volume] in Blood by Automated count 1.74 10*3/uL 1.2-[address] [facility] Monocytes [#/volume] in Blood by Automated count 0.23 10*3/uL 0-0.8 [facility] Eosinophils [#/volume] in Blood by Automated count 0.11 10*3/uL 0-0.5 [facility] Basophils [#/volume] in Blood by Automated count 0.04 10*3/uL 0-0.2 [facility] Nucleated erythrocytes/100 leukocytes [Ratio] in Blood by Automated count 0 /100{WBCs} 0-0 [facility] ID Date Data Source [id number] 04/05/2021 10:33:14 AM EDT [facility] Name Value Range Interpretation Code Description Data Chayo rce(s) Supporting Document(s) Progress Note [facility] APCZBb8mGtOZOiTn85/TNEkcBJQyf1IxSIzkINr0JYcpETKaC4UwOZN7mM8aJRY1KJaSKeFdWtIwKhW1 [facility] [file] AgICAgICAgICAgICAgICAgICAgICAgICAgICAgICAgICAgICAgICAgICAgICAgICAgICAgICAgICAgIC AgICAgICAgICAgICAgICAgICAgICAgICAgICAgICAg ICANCiAgICAgICAgICAgICAgICAgICAgICAgICAgICAgICAgICAgICAgICAgICAgICAgICAgICAgICAg ICAgICAgICAgICAgICAgICAgICAgICAgICAgICAgICAgICAgICAgICAgICANCiAgICAgICAgICAgICAg ICAgICAgICAgICAgICAgICAgICAgICAgICAgICAgIC AgICAgICAgICAgICAgICAgICAgICAgICAgICAgICAgICAgICAgICAgICAgICAgICAgICAgICANCiAgIC AgICAgICAgICAgICAgICAgICAgICAgICAgICAgICAgICAgICAgICAgICAgICAgICAgICAgICAgICAgIC AgICAgICAgICAgICAgICAgICAgICAgICAgICAgICAg ICAgICANCiAgICAgICAgICAgICAgICAgICAgICAgICAgICAgICAgICAgICAgICAgICAgICAgICAgICAg ICAgICAgICAgICAgICAgICAgICAgICAgICAgICAgICAgICAgICAgICAgICAgICANCiAgICAgICAgICAg ICAgICAgICAgICAgICAgICAgICAgICAgICAgICAgIC AgICAgICAgICAgICAgICAgICAgICAgICAgICAgICAgICAgICAgICAgICAgICAgICAgICAgICAgICANCi AgICAgICAgICAgICAgICAgICAgICAgICAgICAgICAgICAgICAgICAgICAgICAgICAgICAgICAgICAgIC AgICAgICAgICAgICAgICAgICAgICAgICAgICAgICAg ICAgICAgICANCiAgICAgICAgICAgICAgICAgICAgICAgICAgICAgICAgICAgICAgICAgICAgICAgICAg ICAgICAgICAgICAgICAgICAgICAgICAgICAgICAgICAgICAgICAgICAgICAgICAgICANCiAgICAgICAg ICAgICAgICAgICAgICAgICAgICAgICAgICAgICAgIC AgICAgICAgICAgICAgICAgICAgICAgICAgICAgICAgICAgICAgICAgICAgICAgICAgICAgICAgICAgIC ANCiAgICAgICAgICAgICAgICAgICAgICAgICAgICAgICAgICAgICAgICAgICAgICAgICAgICAgICAgIC AgICAgICAgICAgICAgICAgICAgICAgICAgICAgICAg ICAgICAgICAgICANCjw/tFSwF9xlnIFjkuI1U9tsKd5FOb9IIU0hx7BoGDVqEVzhwrEeAffPLfDcNROq DtwBMsc1UFuxSA1WnIVdV8RrX7XwSRvxGG3GGJCfGYFkzTPaPUPjRBLoYzC9GYTbRFvwIX6OuHEcMDmb DTQhGGLmBjKeVKPfJS4EWZNiS242bsElSo9FZk6INm IqJO0vnr6EOdJkEMNtKryYGkc8ZNlpUQ1UdNHbvVDcRxVtJUEKCaQuG1zur3AeOxJsLPLCHVrtUU0Ht8 VudCAxDQo+Te1HAD1ps3PmNAstJsYfRB6obn0PSAqUVpVqC3PsoFlpSRXgk2suLYYxJL2ufGDrWAW1QX IcryQoJYZPWQeuTYrtDdKtBTEpNo2vQf5cSVDtFNX7 IvAvOVLFXV9PEFGrFNVakNTgZYOhPAGRZM1XJGhfXKO4BBVtcqVngJOzTAooKX5SJXMpesVkGeEgEHAO DQo+Hs1JRX4yz0XtNTncSrVsTD0snl9NRVcFRxTyZ8X4aFPfN6X0KDjvFc5RCYLjPIChWUraDSIXKElu MU6FFH0tvnH8MO1WaXSzZXJhLZSnfDOhUQz0F70rhB SpSDghDA7GZEV+Angelica+Do6PHSCrSQNkXRJbOaWpXRAZJlOvT0TgB1BQl5KbO6QkQS06qOjgbaGjNZosQK 6SRG8pNCGaSCWGGP6BzHGsnZ7mgbGtRESkMGFHVwJbD32tyOZaSQXjBLSgRAXkFy1JVRLeU0RjcpZnrZ vylcBpHKWfVIGGLT7XVFksxfRehLKasBboDF21mYgw IL5PLj3GDeYdXJ8qop5DlOGdYu1XWPIxSB8ASBWcDHPvKHWzVBA7DVUkLmVkVStiJBBfQHUwJVK0DNWq KZGmEZ1LJsEnLIJrBGk6UTtfBUAcGWWtbt0ZVIGhLPLfDZP1IDGqHSFcNPAyCMzkLNJiSEQrIRU1EAOt LGOmYP2PBaGpUKDhNVDzVKLvFBRyMMDsqr1DOEMnMD ZiCjW0SaCzTYNoPDFiGJjbCHKlLVH1MrucSOFiIRKvZL4BTlLcUWDhBSV4PeDeHKKuHHKpfx6JCITcFN AqVCbkHRRdAUQlKPYhBNziYYJcJRU1WOEeSYOeVCVxUB0OCpFrFQBgKDHoIRFcBMQlSYCmam9RXSGwWR SnDaM5MPExPTVmQZZmSUjpOPPgCZK8TiqsTFLbNLTq ID1IDzSsWEQcCYh3ZqEtSTHnMVOdhv8FXAUgVBVdSAngBqLnFYRaEALeJNdiZJVmBYL4OpKvWRAcMAYg HY9PBeWyCPWzNQv6BLOlLURiAHMmxb5QGTNaBKCjHNU1OAJaWELvXRUcWYwtCSNuYQP3MLC0OSQmTNOg HS7ORbMpKXBcKiKjUdtdCOOxSXBprm4FUSZwRTNiFX B9FtAqFOVyDNBwOBiaYMBtIIQpSaCbANOjETVfIZ2KZyRkAJCxWzL5TNKzUKWcYHMtpm1XgOSivCswkg 1KPAsKNb1WtOlgDOC7SFynIy0xtEUsZjCcFSODDa9VptAiFBNcZIREGPdsWZEvOJdaXTNqLAMjEgDoUM bePFmwStU5WWLeZsN0VFMiMJJpQxO8TqZrYmWyTNPv TsJoFKHgTkMoVRE5SMG8DMD1LsX4VSG+DB4zWTt+Ft4Vv5DwrwN4osQgDFpkBjQcMM8SITFYK6QXFi== ID Date Data Source [id number] 03/23/2021 12:26:58 PM EDT [facility] Name Value Range Interpretation Code Description Data Chayo rce(s) Supporting Document(s) Progress Note [facility] DGPTZb0jUgHQUyRk97/WHJzfSPHdu5OdJXdwKIq6SIaxFFWeR9LaHQU0pC2bCAG7XXrKVlLkUdWiEsDs lbm [file] AgICAgICAgICAgICAgICAgICAgICAgICAgICAgICAg ICAgICAgICAgICAgICAgICAgICAgICAgICAgICAgICAgDQogICAgICAgICAgICAgICAgICAgICAgICAg ICAgICAgICAgICAgICAgICAgICAgICAgICAgICAgICAgICAgICAgICAgICAgICAgICAgICAgICAgICAg ICAgICAgICAgICAgICAgDQogICAgICAgICAgICAgIC AgICAgICAgICAgICAgICAgICAgICAgICAgICAgICAgICAgICAgICAgICAgICAgICAgICAgICAgICAgIC AgICAgICAgICAgICAgICAgICAgICAgICAgDQogICAgICAgICAgICAgICAgICAgICAgICAgICAgICAgIC AgICAgICAgICAgICAgICAgICAgICAgICAgICAgICAg ICAgICAgICAgICAgICAgICAgICAgICAgICAgICAgICAgICAgDQogICAgICAgICAgICAgICAgICAgICAg ICAgICAgICAgICAgICAgICAgICAgICAgICAgICAgICAgICAgICAgICAgICAgICAgICAgICAgICAgICAg ICAgICAgICAgICAgICAgICAgDQogICAgICAgICAgIC AgICAgICAgICAgICAgICAgICAgICAgICAgICAgICAgICAgICAgICAgICAgICAgICAgICAgICAgICAgIC AgICAgICAgICAgICAgICAgICAgICAgICAgICAgDQogICAgICAgICAgICAgICAgICAgICAgICAgICAgIC AgICAgICAgICAgICAgICAgICAgICAgICAgICAgICAg ICAgICAgICAgICAgICAgICAgICAgICAgICAgICAgICAgICAgICAgDQogICAgICAgICAgICAgICAgICAg ICAgICAgICAgICAgICAgICAgICAgICAgICAgICAgICAgICAgICAgICAgICAgICAgICAgICAgICAgICAg ICAgICAgICAgICAgICAgICAgICAgDQogICAgICAgIC AgICAgICAgICAgICAgICAgICAgICAgICAgICAgICAgICAgICAgICAgICAgICAgICAgICAgICAgICAgIC AgICAgICAgICAgICAgICAgICAgICAgICAgICAgICAgDQogICAgICAgICAgICAgICAgICAgICAgICAgIC AgICAgICAgICAgICAgICAgICAgICAgICAgICAgICAg LHYyMOPmEJKlUTVdYYHhZYNdUZPzTHNpJGCcUGUpBBJmOVJzISRnXEPhSQu3B4iiTKQlQQDxGU4vOLf6 Jz8+GHeRLsPwVEC8otAdhC3HKG5il8QgRZchZXJik9YfLRt8UK7NFJGvGWjyAA8VZThhih0VBNGmSYVj gYMYy8mkMaFlSKR8OQFsMztrLU0MJAVtA6rdqjVpMP VbZBLUPAlyNXUVCM2GCgWoD8ApuL98YUXNWe7+IRtuoxRlDmlTQzT8TVNqg6PfBEz7CU2EVRQmPaylv5 EtOnNkUITJHYduQA8MBWO8WAJ5HWXdTh1HHAYgP670vwZdYZ9XMw8UBwPpQF5opc3ERbZzXAZkBupIGv a5PYgrBF9XeMLnMGhWca6uiwDurdJUr8NwyzMqpVNU TA8smRMafeWOHBjpvHiumsvpDhRtWLJsWz3vCv9lJUPfCVMnLwHfABXFDT8WBOBiRDUgzCDgYYNxQIQL SW5FKCnnQTX7FWQvifIqsVFsTOhgRA4ESVDrhkXpCoCdAXXRPDs+Xh2JJL5hf6OwSPbqOtPzKO6iay8S ZXvQLnIiD4H6fSMwF6Q0DBaoPd8IIAYmYWAvCoTxTF TXYYmnEG7BZJ5zcnB2BL0JzLUdVUUaFXZizSIpKNt4D41hbCKhNSqzWM1YRPG+Angelica+Wh6JOUFzIKXrIU WeChJaORKXTqGzI8BqZ8VFg4LyB5KiWI65zMzkrvSjBCyaZK7NVF9lYJIcPULNLH8OjMHyqN7cuhXzZR FzVWQOPvJxZ19jiZZyWJWwVECrTPTeFs1PUGYjG6Kp fiJylJnqozLlLUVuXGRLXR7OHEopnvCmaHRarKcmJI55sClzFU8VTl6SRoFfZI4vwc3AeEBoCx1UVXUh Lp3LFFVoICUfQSHqSGD9RSRdZaSzDEerEXDiKYGsMZB5OETeHPZxVG3WBsWbVTVmXtZmFkZlYRRgHWVx zh2TWZZgKAGmZxeyFHIsMFYfNHPrIBcyCUKpDWSyTX Y3EBKmZLIiOT2JIfBqPGZbKBN8MHXvLTGuLGXxdv6HWZEpHCWnKoE7MTYfFQNaRQEwOAlqWQOrBYN0QG y5IPZvNVUfIO1SMwWuULBfFHS3GTClKHGwOUJqum4MYSYzGGRqKJd6JECcXYHhWZIqTJmtXAYwECB0IR M7COFqOBFyWE8KHvKeMYCuQFByWxwqSFMdGUCave5Q KUQjTTGiRzQ7CcUeFCEiJKHgVOxlPRIdSYG4Ilr2HAZdMGKmLI3VBwXcACFcJWt5XtXtYNAyXTPkxo5P PBSgGQPmAHnnRZLoYMFaWWAeTQeyWNGnFJZ0ZPY5WFMhYAIbPG3RSgNgIDNaVSxdBARmRSMwBLKqic7A DYXvIKXqVKS5EoFfRRTjLUExRWeaRGWlYOV1YrWwDL XvBFPaBF4WMhNuTDNkLrY5AQMnZTVsDMUmht3WRZBwHXUrIMb7QeMrWIQvSGBbOQhwMDEsGNDnMUT4NE MfYWPdDM8AOxPdTYOyIsK8BpTlHYGcXGCujb8ZLQJfVWPmLtozWKDlGWQrBEWcJYbaFEIfIXQaSOc5HP HeCYYnDA7IQzLlRTOiPhDdInyyJURiQDDeba1WaZHc cJwelg6NULcQKg1KcMljWNO9EOjnVc4ioWGdJrTpIDBHVm4UxcHmSBFgGRZHUYsgTBFvLJRgOjO1QXU2 Wef8PnH4TISaLfIcVcDzHkMdHGgkMBGxRwJ3KqJ2IEElTBooCFVtOsVxGtTgTOBiHXWvDuB4Y3V6ObD+ UB2cBGs+Es9Wj3MhxjU5uhUbAXwhKgJ4Na2UHZUWH1RIQh== ID Date Data Source [id number] 03/16/2021 07:12:29 PM EDT [facility] Name Value Range Interpretation Code Description Data Chayo rce(s) Supporting Document(s) WBC 12.3 10*3/uL (4.1-11.0) H [facility] RBC 4.28 10*6/uL (4.00-5.40) [facility] HGB 12.9 g/dL (12.0-16.0) [facility] HCT 39.2 % (36.0-47.0) [facility] MCV 91.5 fL (80.0-95.0) [facility] MCH 30.1 pg (27.0-32.0) [facility] MCHC 32.9 g/dL (32.0-36.0) [facility] RDW 14.1 % (10.5-14.5) [facility] PLT 185 10*3/uL (150-450) [facility] MPV 10.0 fL (7.1-10.7) [facility] ID Date Data Source [id number] 03/16/2021 06:34:56 AM EDT [facility] Name Value Range Interpretation Code Description Data Chayo rce(s) Supporting Document(s) URIC ACID 4.6 mg/dL (2.6-6.0) [facility] ID Date Data Source [id number] 03/16/2021 06:34:56 AM EDT [facility] Name Value Range Interpretation Code Description Data Chayo rce(s) Supporting Document(s) LDH 240 U/L (84-246) [facility] ID Date Data Source [id number] 03/16/2021 06:34:56 AM EDT [facility] Name Value Range Interpretation Code Description Data Chayo rce(s) Supporting Document(s) SODIUM 136 mmol/L (136-145) [facility] POTASSIUM 4.3 mmol/L (3.6-5.2) [facility] CHLORIDE 104 mmol/L (100-108) [facility] CO2 23 mmol/L (22-31) [facility] ANION GAP 9 mmol/L (7-16) [facility] UREA NITROGEN 10 mg/dL (7-24) [facility] CREATININE 0.58 mg/dL (0.60-1.00) L [facility] BUN/CREAT RATIO 17.2 RATIO (10.0-20.0) [facility] GLUCOSE 97 mg/dL (70-99) [facility] CALCIUM 7.8 mg/dL (8.4-10.2) L [facility] TOTAL PROTEIN 5.7 g/dL (6.4-8.2) L [facility] ALBUMIN 2.4 g/dL (3.5-4.6) L [facility] GLOBULIN 3.3 g/dL (2.7-4.3) [facility] ALB/GLOB RATIO 0.7 RATIO [facility] ALKALINE PHOSPHATASE 159 U/L (45-117) H [facility] BILIRUBIN,TOTAL 0.4 mg/dL (0.0-1.0) [facility] PLEASE NOTE:Total bilirubin results may be falselyelevated in patients taking Eltrombopag. AST (SGOT) 15 U/L (11-39) [facility] ALT (SGPT) 21 U/L (12-78) [facility] GFR >60 ml/min/1.73m2 (>59) [facility] GFR ( AMER) >60 ml/min/1.73m2 (>59) [facility] GFR INTERPRETATION [facility] --NORMAL KIDNEY FUNCTION OR MILD DISEASE - GFR >OR= 60CHRONIC KIDNEY DISEASE - GFR 15 - 59RENAL FAILURE - GFR <15 Est. GFR calculation based on the MDRDstudy equation, which assumes a steadystate for creatinine. Est. GFR should notbe used for medication dosing. ID Date Data Source [id number] 03/16/2021 06:34:56 AM EDT [facility] Name Value Range Interpretation Code Description Data Chayo rce(s) Supporting Document(s) MAGNESIUM 4.8 mg/dL (1.7-2.4) H [facility] CONSISTENT WITH PREVIOUS RESULTS ID Date Data Source [id number] 03/16/2021 06:05:46 AM EDT [facility] Name Value Range Interpretation Code Description Data Chayo rce(s) Supporting Document(s) WBC 15.1 10*3/uL (4.1-11.0) H [facility] RBC 4.37 10*6/uL (4.00-5.40) [facility] HGB 13.1 g/dL (12.0-16.0) [facility] HCT 40.2 % (36.0-47.0) [facility] MCV 92.0 fL (80.0-95.0) [facility] MCH 30.1 pg (27.0-32.0) [facility] MCHC 32.7 g/dL (32.0-36.0) [facility] RDW 14.5 % (10.5-14.5) [facility] PLT 165 10*3/uL (150-450) [facility] MPV 9.6 fL (7.1-10.7) [facility] ID Date Data Source [id number] 03/15/2021 07:48:09 PM EDT [facility] Name Value Range Interpretation Code Description Data Chayo rce(s) Supporting Document(s) POC GLUCOSE 127 mg/dL (70-99) H [facility] PERFORMED BY CLINICAL STAFF ID Date Data Source [id number] 03/15/2021 03:05:00 PM EDT [facility] DATE OF EXAM: 03/15/2021XAM: [employer], US Biophys Profile WO Stress Testing, US Biophys Profile WO Stress Testing, US Umbilical Artery Doppler INDICATION: SEVERE IUGR BABY B. COMPARISON: 03/13/2021 FINDINGS: Baby A: head to the maternal left. heart rate 138 bpm. Biophysical profile 8/8. Duration of examination: 11 minutes of imaging. Baby B: Head to the maternal right. heart rate one 32 bpm. Oligohydramnios, 2.5 cm maximum vertical pocket amniotic fluid. Biophysical profile 8/8. Duration of examination: 10 minutes of imaging. Umbilical Doppler systolic/diastolic ratio: Three tracings demonstrate absent diastolic flow; one tracing with a few episodes of reversal of diastolic flow. Systolic to diastolic ratio could not be calculated. IMPRESSION: Biophysical profile score for baby A is 8/8. Biophysical profile score for baby B is 8/8. No diastolic flow for umbilical artery Doppler performed for baby B. One of four tracings shows reversal of diastolic flow, the other three tracings show no diastolic flow. X7End of diagnostic report for accession: [id number] Interpreted: Valente Cleary MDTranscribed: 03/15/2021 02:59 PMSigned: 03/15/2021 03:05 PM Valente Cleary MD [facility] ACC # [id number] BILL # [id number] Name Value Range Interpretation Code Description Data Chayo rce(s) Supporting Document(s) ID Date Data Source [id number] 03/15/2021 03:05:00 PM EDT [facility] DATE OF EXAM: 03/15/2021XAM: [employer], US Biophys Profile WO Stress Testing, US Biophys Profile WO Stress Testing, US Umbilical Artery Doppler INDICATION: SEVERE IUGR BABY B. COMPARISON: 03/13/2021 FINDINGS: Baby A: head to the maternal left. heart rate 138 bpm. Biophysical profile 8/8. Duration of examination: 11 minutes of imaging. Baby B: Head to the maternal right. heart rate one 32 bpm. Oligohydramnios, 2.5 cm maximum vertical pocket amniotic fluid. Biophysical profile 8/8. Duration of examination: 10 minutes of imaging. Umbilical Doppler systolic/diastolic ratio: Three tracings demonstrate absent diastolic flow; one tracing with a few episodes of reversal of diastolic flow. Systolic to diastolic ratio could not be calculated. IMPRESSION: Biophysical profile score for baby A is 8/8. Biophysical profile score for baby B is 8/8. No diastolic flow for umbilical artery Doppler performed for baby B. One of four tracings shows reversal of diastolic flow, the other three tracings show no diastolic flow. X7End of diagnostic report for accession: [id number] Interpreted: Valente Cleary MDTranscribed: 03/15/2021 02:59 PMSigned: 03/15/2021 03:05 PM Valente Cleary MD [facility] ACC # [id number] [facility] # [id number] Name Value Range Interpretation Code Description Data Chayo rce(s) Supporting Document(s) ID Date Data Source [id number] 03/15/2021 03:05:00 PM EDT [facility] DATE OF EXAM: 03/15/2021XAM: Cubicle Uterus MediGain, Biophys Profile WO Stress Testing, US Biophys Profile WO Stress Testing, US Umbilical Artery Doppler INDICATION: SEVERE IUGR BABY B. COMPARISON: 03/13/2021 FINDINGS: Baby A: head to the maternal left. heart rate 138 bpm. Biophysical profile 8/8. Duration of examination: 11 minutes of imaging. Baby B: Head to the maternal right. heart rate one 32 bpm. Oligohydramnios, 2.5 cm maximum vertical pocket amniotic fluid. Biophysical profile 8/8. Duration of examination: 10 minutes of imaging. Umbilical Doppler systolic/diastolic ratio: Three tracings demonstrate absent diastolic flow; one tracing with a few episodes of reversal of diastolic flow. Systolic to diastolic ratio could not be calculated. IMPRESSION: Biophysical profile score for baby A is 8/8. Biophysical profile score for baby B is 8/8. No diastolic flow for umbilical artery Doppler performed for baby B. One of four tracings shows reversal of diastolic flow, the other three tracings show no diastolic flow. X7End of diagnostic report for accession: [id number] Interpreted: Valente Claery MDTranscribed: 03/15/2021 02:59 PMSigned: 03/15/2021 03:05 PM Valente Cleary MD [facility] ACC # [id number] [facility] # [id number] Name Value Range Interpretation Code Description Data Chayo rce(s) Supporting Document(s) ID Date Data Source [id number] 03/15/2021 03:05:00 PM EDT [facility] DATE OF EXAM: 1EXAM: [employer], [place] Biophys Profile WO Stress Testing, US Biophys Profile WO Stress Testing, US Umbilical Artery Doppler INDICATION: SEVERE IUGR BABY B. COMPARISON: 03/13/2021 FINDINGS: Baby A: head to the maternal left. heart rate 138 bpm. Biophysical profile 8/8. Duration of examination: 11 minutes of imaging. Baby B: Head to the maternal right. heart rate one 32 bpm. Oligohydramnios, 2.5 cm maximum vertical pocket amniotic fluid. Biophysical profile 8/8. Duration of examination: 10 minutes of imaging. Umbilical Doppler systolic/diastolic ratio: Three tracings demonstrate absent diastolic flow; one tracing with a few episodes of reversal of diastolic flow. Systolic to diastolic ratio could not be calculated. IMPRESSION: Biophysical profile score for baby A is 8/8. Biophysical profile score for baby B is 8/8. No diastolic flow for umbilical artery Doppler performed for baby B. One of four tracings shows reversal of diastolic flow, the other three tracings show no diastolic flow. X7End of diagnostic report for accession: [id number] Interpreted: Valente Cleary MDTranscribed: 03/15/2021 02:59 PMSigned: 03/15/2021 03:05 PM Valente Cleary MD [facility] # [id number] BILL # [id number] Name Value Range Interpretation Code Description Data Chayo rce(s) Supporting Document(s) ID Date Data Source [id number] 03/17/2021 02:39:56 PM EDT [facility] [place], [place] [address]Tel# SURGICAL PATHOLOGY REPORTPatient Name:ALEXIA RIOSOB:2000Received:03/16/2021ccession #:[id number]) Received: A: Twin placentaClinical Diagnosis and History: Gestational age 31.2 weeks. EDC 05/15/2021. Twin section,preeclampsia, gestational diabetes, reversal of flow baby B. DIAGNOSIS:DIAMNIONIC/DICHORIONIC MATURE TWIN PLACENTA. THREE VESSEL UMBILICALCORDS. GROSS DESCRIPTION: Received in formalin labeled "placenta"Intervening membranes Number of layers: Four. Amnion/Chorion Composition: Diamnionic/DichorionicDisc(s): Appearance: Fused. Combined Weight: 446 gm. Percentile: >the 90th percentile.Placenta A (arbitrarily designated "smaller umbilical cord"). Weight 149 gm. Measurement 12.0 x 9.0 x 3.0 cm. Umbilical cord Insertion Paracentral, 3.5 cm from margin. Measurement 21.0 x 0.9 cm. Number of vessels Three. Appearance Hypercoiled, left to right. Membranes Insertion Marginal insertion. Appearance Thin, red-wiggins and semitranslucent. Site of rupture At a margin.Placenta B (arbitrarily designated "larger umbilical cord"). Weight 297 gm. Measurement 16.0 x 10.0 x 3.0 cm. Umbilical cord Insertion Central. Measurement 34.5 x 1.6 cm. Number of vessels Three. Appearance Hypocoiled, right to left; false knot15.7 cm to insertion site. Membranes Insertion Appearance Thin, red-wiggins and semitranslucent. Site of rupture 3.0 cm from a margin. Comments: The specimen consists of a fused diamnionic/dichorionic twin placentawith attached membranes and umbilical cord. The discs are not orientedand are arbitrarily assigned. Placental disc A has the smaller, thinnerumbilical cord; placental disc B has the larger, wider umbilical cord. There are four dividing membranes as well as a chorionic ridge. The fetalsurfaces are glistening purple-rivero. The maternal surfaces are lobulatedand intact. The cut surfaces are soft, spongy red-purple and grosslyunremarkable. The specimen is sectioned and sections are submitted formicroscopic examination as designated: A placenta A; B placenta B; D dividing membrane. (5 blocks)[id number]: 03/17/2021Electronically Signed Out By Valente Gonzalez M.D. jzwPathology Associates of BuffaloNicoleMargaux[address] [place], [place] [address]Technical component performed at [facility], [facility], [address] [place] [address], [id number].Reported at [facility], [address] [place] [address], [facility].This report may include immunohistochemical or in-situ hybridizationresults. Testing was developed and the performance c haracteristicsdetermined by [facility], as required byCLIA '88. The FDA has determined that approval for specific use is notnecessary for clinical use. The quality of Hematoxylin and Eosin stainsand as applicable, for all immunohistochemical and/or special stains,including positive and negative controls, were reviewed and consideredappropriate.ICD codes: O30.738WFO4 codes: A: 78248O(2) Name Value Range Interpretation Code Description Data Chayo rce(s) Supporting Document(s) ID Date Data Source [id number] 03/15/2021 06:55:24 AM EDT [facility] Name Value Range Interpretation Code Description Data Chayo rce(s) Supporting Document(s) URIC ACID 4.0 mg/dL (2.6-6.0) [facility] Date Data Source [id number] 03/15/2021 06:55:24 AM EDT [facility] Name Value Range Interpretation Code Description Data Chayo rce(s) Supporting Document(s) LDH 183 U/L (84-246) [facility] Date Data Source [id number] 03/15/2021 06:55:24 AM EDT [facility] Name Value Range Interpretation Code Description Data Chayo rce(s) Supporting Document(s) SODIUM 138 mmol/L (136-145) [facility] POTASSIUM 3.8 mmol/L (3.6-5.2) [facility] CHLORIDE 106 mmol/L (100-108) [facility] CO2 21 mmol/L (22-31) L [facility] ANION GAP 11 mmol/L (7-16) [facility] UREA NITROGEN 7 mg/dL (7-24) [facility] CREATININE 0.52 mg/dL (0.60-1.00) L [facility] BUN/CREAT RATIO 13.5 RATIO (10.0-20.0) [facility] GLUCOSE 127 mg/dL (70-99) H [facility] CALCIUM 8.2 mg/dL (8.4-10.2) L [facility] TOTAL PROTEIN 5.8 g/dL (6.4-8.2) L [facility] ALBUMIN 2.4 g/dL (3.5-4.6) L [facility] GLOBULIN 3.4 g/dL (2.7-4.3) [facility] ALB/GLOB RATIO 0.7 RATIO [facility] ALKALINE PHOSPHATASE 157 U/L (45-117) H [facility] BILIRUBIN,TOTAL 0.2 mg/dL (0.0-1.0) [facility] PLEASE NOTE:Total bilirubin results may be falselyelevated in patients taking Eltrombopag. AST (SGOT) 12 U/L (11-39) [facility] ALT (SGPT) 18 U/L (12-78) [facility] GFR >60 ml/min/1.73m2 (>59) [facility] GFR ( AMER) >60 ml/min/1.73m2 (>59) [facility] GFR INTERPRETATION [facility] --NORMAL KIDNEY FUNCTION OR MILD DISEASE - GFR >OR= 60CHRONIC KIDNEY DISEASE - GFR 15 - 59RENAL FAILURE - GFR <15 Est. GFR calculation based on the MDRDstudy equation, which assumes a steadystate for creatinine. Est. GFR should notbe used for medication dosing. ID Date Data Source [id number] 03/15/2021 06:10:25 AM EDT [facility] Name Value Range Interpretation Code Description Data Hcayo rce(s) Supporting Document(s) WBC 11.4 10*3/uL (4.1-11.0) H [facility] RBC 4.37 10*6/uL (4.00-5.40) [facility] HGB 13.3 g/dL (12.0-16.0) [facility] HCT 40.2 % (36.0-47.0) [facility] MCV 92.0 fL (80.0-95.0) [facility] MCH 30.5 pg (27.0-32.0) [facility] MCHC 33.2 g/dL (32.0-36.0) [facility] RDW 14.4 % (10.5-14.5) [facility] PLT 174 10*3/uL (150-450) [facility] MPV 9.9 fL (7.1-10.7) [facility] ID Date Data Source [id number] 03/14/2021 09:58:22 PM EDT [facility] Name Value Range Interpretation Code Description Data Chayo rce(s) Supporting Document(s) POC GLUCOSE 150 mg/dL (70-99) H [facility] NOTIFIED PROVIDERNOTIFIED NURSEPERFORMED BY CLINICAL STAFF ID Date Data Source [id number] 03/14/2021 06:27:11 PM EDT [facility] Name Value Range Interpretation Code Description Data Chayo rce(s) Supporting Document(s) POC GLUCOSE 210 mg/dL (70-99) H [facility] PERFORMED BY CLINICAL STAFF ID Date Data Source [id number] 03/14/2021 02:18:15 PM EDT [facility] Name Value Range Interpretation Code Description Data Chayo rce(s) Supporting Document(s) POC GLUCOSE 163 mg/dL (70-99) H [facility] PERFORMED BY CLINICAL STAFF ID Date Data Source [id number] 03/14/2021 12:08:19 PM EDT [facility] Name Value Range Interpretation Code Description Data Chayo rce(s) Supporting Document(s) POC GLUCOSE 111 mg/dL (70-99) H [facility] PERFORMED BY CLINICAL STAFF ID Date Data Source [id number] 03/14/2021 11:26:46 AM EDT [facility] Name Value Range Interpretation Code Description Data Chayo rce(s) Supporting Document(s) WBC 10.9 10*3/uL (4.1-11.0) [facility] RBC 4.23 10*6/uL (4.00-5.40) [facility] HGB 13.0 g/dL (12.0-16.0) [facility] HCT 38.8 % (36.0-47.0) [facility] MCV 91.5 fL (80.0-95.0) [facility] MCH 30.8 pg (27.0-32.0) [facility] MCHC 33.6 g/dL (32.0-36.0) [facility] RDW 14.6 % (10.5-14.5) H [facility] PLT 174 10*3/uL (150-450) [facility] MPV 10.0 fL (7.1-10.7) [facility] ID Date Data Source [id number] 03/14/2021 09:28:31 AM EDT [facility] Name Value Range Interpretation Code Description Data Chayo rce(s) Supporting Document(s) SODIUM 139 mmol/L (136-145) [facility] POTASSIUM 4.1 mmol/L (3.6-5.2) [facility] CHLORIDE 108 mmol/L (100-108) [facility] CO2 21 mmol/L (22-31) L [facility] ANION GAP 10 mmol/L (7-16) [facility] UREA NITROGEN 8 mg/dL (7-24) [facility] CREATININE 0.50 mg/dL (0.60-1.00) L [facility] BUN/CREAT RATIO 16.0 RATIO (10.0-20.0) [facility] GLUCOSE 94 mg/dL (70-99) [facility] CALCIUM 8.7 mg/dL (8.4-10.2) [facility] TOTAL PROTEIN 6.1 g/dL (6.4-8.2) L [facility] ALBUMIN 2.6 g/dL (3.5-4.6) L [facility] GLOBULIN 3.5 g/dL (2.7-4.3) [facility] ALB/GLOB RATIO 0.7 RATIO [facility] ALKALINE PHOSPHATASE 159 U/L (45-117) H [facility] BILIRUBIN,TOTAL 0.3 mg/dL (0.0-1.0) [facility] PLEASE NOTE:Total bilirubin results may be falselyelevated in patients taking Eltrombopag. AST (SGOT) 8 U/L (11-39) L [facility] ALT (SGPT) 18 U/L (12-78) [facility] GFR >60 ml/min/1.73m2 (>59) [facility] GFR ( AMER) >60 ml/min/1.73m2 (>59) [facility] GFR INTERPRETATION [facility] --NORMAL KIDNEY FUNCTION OR MILD DISEASE - GFR >OR= 60CHRONIC KIDNEY DISEASE - GFR 15 - 59RENAL FAILURE - GFR <15 Est. GFR calculation based on the MDRDstudy equation, which assumes a steadystate for creatinine. Est. GFR should notbe used for medication dosing. ID Date Data Source [id number] 03/14/2021 09:28:31 AM EDT [facility] Name Value Range Interpretation Code Description Data Chayo rce(s) Supporting Document(s) URIC ACID 4.0 mg/dL (2.6-6.0) [facility] ID Date Data Source [id number] 03/14/2021 09:28:31 AM EDT [facility] Name Value Range Interpretation Code Description Data Chayo rce(s) Supporting Document(s) LDH 202 U/L (84-246) [facility] ID Date Data Source [id number] 03/14/2021 08:49:54 AM EDT [facility] Name Value Range Interpretation Code Description Data Chayo rce(s) Supporting Document(s) POC GLUCOSE 107 mg/dL (70-99) H [facility] [place] PERFORMED BY CLINICAL STAFF ID Date Data Source [id number] 03/13/2021 10:52:27 PM EDT [facility] Name Value Range Interpretation Code Description Data Chayo rce(s) Supporting Document(s) POC GLUCOSE 226 mg/dL (70-99) H [facility] [place] NOTIFIED PROVIDERNOTIFIED NURSEPERFORMED BY CLINICAL STAFF ID Date Data Source [id number] 03/13/2021 06:14:46 PM EDT [facility] PATIENT ABO/Rh B POSITIVEBLO OD BANK COMMENT BLOOD TYPE CONFIRMED. Name Value Range Interpretation Code Description Data Chayo rce(s) Supporting Document(s) ID Date Data Source [id number] 03/13/2021 06:12:36 PM EDT [facility] ANTIBODY SCREEN NEGATIVESPEC EXP DATE 03/16/2021TESTING SITE PERFORMED AT [address] [place] [address] Name Value Range Interpretation Code Description Data Chayo rce(s) Supporting Document(s) ID Date Data Source [id number] 03/13/2021 05:05:11 PM EDT [facility] Name Value Range Interpretation Code Description Data Chayo rce(s) Supporting Document(s) POC GLUCOSE 239 mg/dL (70-99) H [facility] [place] NOTIFIED PROVIDERPERFORMED BY CLINICA L STAFF ID Date Data Source [id number] 03/13/2021 02:55:00 PM EDT [facility] DATE OF EXAM: 03/13/2021ULTRASOUND OBSTE TRIC LIMITED ULTRASOUND UMBILICAL ARTERY DOPPLER INDICATION: Severe IUGR baby B. TECHNIQUE: Multiple real-time sonographic images of the uterus and Twin B fetus were obtained. Umbilical arterial Doppler imaging was obtained. FINDINGS: Baby B currently lies transverse at the maternal right. heart rate is detected at 138 bpm. Maximal vertical pocket is 3.2 cm. There is absent diastolic flow on all tracings and therefore systolic/diastolic ratio cannot be calculated. IMPRESSION: Living baby B. Maximal vertical pocket of amniotic fluid is 2.2 cm. Absent diastolic flow in the umbilical artery. X1End of diagnostic report for accession: [id number] Interpreted: Shanna Cohn MDTranscribed: 03/13/2021 02:52 PMSigned: 03/13/2021 02:55 PM Shanna Cohn MD [facility] ACC # [id number] BILL # [id number] Name Value Range Interpretation Code Description Data Chayo rce(s) Supporting Document(s) ID Date Data Source [id number] 03/13/2021 02:55:[address] [facility] DATE OF EXAM: 03/13/2021ULTRASOUND OBSTE TRIC LIMITED ULTRASOUND UMBILICAL ARTERY DOPPLER INDICATION: Severe IUGR baby B. TECHNIQUE: Multiple real-time sonographic images of the uterus and Twin B fetus were obtained. Umbilical arterial Doppler imaging was obtained. FINDINGS: Baby B currently lies transverse at the maternal right. heart rate is detected at 138 bpm. Maximal vertical pocket is 3.2 cm. There is absent diastolic flow on all tracings and therefore systolic/diastolic ratio cannot be calculated. IMPRESSION: Living baby B. Maximal vertical pocket of amniotic fluid is 2.2 cm. Absent diastolic flow in the umbilical artery. X1End of diagnostic report for accession: [id number] Interpreted: Shanna Cohn MDTranscribed: 03/13/2021 02:52 PMSigned: 03/13/2021 02:55 PM Shanna Cohn MD [facility] ACC # [id number] BILL # [id number] Name Value Range Interpretation Code Description Data Chayo rce(s) Supporting Document(s) ID Date Data Source [id number] 03/13/2021 02:41:00 PM EDT [facility] DATE OF EXAM: 03/13/2021IOPHYSICAL PROF ILE INDICATION: Twin A, nonreactive nonstress test. COMPARISON: 03/13/2021 TECHNIQUE: well-being was assessed by the following parameters: amniotic fluid, respiration, movement, and tone. FINDINGS: Baby A: Amniotic fluid- 2, respiration- 2, movement- 2, and tone- 2 Baby A lies breech into the maternal left. Estimated gestational age is 31 weeks and zero days. Duration of the exam was seven minutes. IMPRESSION: Baby A, Normal biophysical profile, 8 out of 8. X1End of diagnostic report for accession: [id number] Interpreted: Shanna Cohn MDTranscribed: 03/13/2021 02:40 PMSigned: 03/13/2021 02:41 PM Shanna Cohn MD [facility] # [id number] BILL # [id number] Name Value Range Interpretation Code Description Data Chayo rce(s) Supporting Document(s) ID Date Data Source [id number] 03/13/2021 10:24:41 AM EDT [facility] Name Value Range Interpretation Code Description Data Chayo rce(s) Supporting Document(s) POC GLUCOSE 168 mg/dL (70-99) H [facility] [place] PERFORMED BY CLINICAL STAFF ID Date Data Source [id number] 03/13/2021 07:34:29 AM EDT [facility] Name Value Range Interpretation Code Description Data Chayo rce(s) Supporting Document(s) URIC ACID 4.2 mg/dL (2.6-6.0) [facility] ID Date Data Source [id number] 03/13/2021 07:34:29 AM EDT [facility] Name Value Range Interpretation Code Description Data Chayo rce(s) Supporting Document(s) MAGNESIUM 4.4 mg/dL (1.7-2.4) H [facility] RESULT(S) CALLED TO AND READ BACK BYJUAN NORRIS IN LD AT 0733 ON 03/13/21.56037 ID Date Data Source [id number] 03/13/2021 07:34:29 AM EDT [facility] Name Value Range Interpretation Code Description Data Chayo rce(s) Supporting Document(s) LDH 156 U/L (84-246) [facility] ID Date Data Source [id number] 03/13/2021 07:34:29 AM EDT [facility] Name Value Range Interpretation Code Description Data Chayo rce(s) Supporting Document(s) SODIUM 139 mmol/L (136-145) [facility] POTASSIUM 4.1 mmol/L (3.6-5.2) [facility] CHLORIDE 108 mmol/L (100-108) [facility] CO2 22 mmol/L (22-31) [facility] ANION GAP 9 mmol/L (7-16) [facility] UREA NITROGEN 9 mg/dL (7-24) [facility] CREATININE 0.60 mg/dL (0.60-1.00) [facility] BUN/CREAT RATIO 15.0 RATIO (10.0-20.0) [facility] GLUCOSE 144 mg/dL (70-99) H [facility] CALCIUM 7.7 mg/dL (8.4-10.2) L [facility] TOTAL PROTEIN 5.9 g/dL (6.4-8.2) L [facility] ALBUMIN 2.6 g/dL (3.5-4.6) L [facility] GLOBULIN 3.3 g/dL (2.7-4.3) [facility] ALB/GLOB RATIO 0.8 RATIO [facility] ALKALINE PHOSPHATASE 151 U/L (45-117) H [facility] BILIRUBIN,TOTAL 0.2 mg/dL (0.0-1.0) [facility] PLEASE NOTE:Total bilirubin results may be falselyelevated in patients taking Eltrombopag. AST (SGOT) 9 U/L (11-39) L [facility] ALT (SGPT) 16 U/L (12-78) [facility] GFR >60 ml/min/1.73m2 (>59) [facility] GFR ( AMER) >60 ml/min/1.73m2 (>59) [facility] GFR INTERPRETATION [facility] --NORMAL KIDNEY FUNCTION OR MILD DISEASE - GFR >OR= 60CHRONIC KIDNEY DISEASE - GFR 15 - 59RENAL FAILURE - GFR <15 Est. GFR calculation based on the MDRDstudy equation, which assumes a steadystate for creatinine. Est. GFR should notbe used for medication dosing. ID Date Data Source [id number] 03/13/2021 06:47:11 AM EDT [facility] Name Value Range Interpretation Code Description Data Chayo rce(s) Supporting Document(s) WBC 14.6 10*3/uL (4.1-11.0) H [facility] RBC 4.25 10*6/uL (4.00-5.40) [facility] HGB 13.0 g/dL (12.0-16.0) [facility] HCT 39.0 % (36.0-47.0) [facility] MCV 91.7 fL (80.0-95.0) [facility] MCH 30.5 pg (27.0-32.0) [facility] MCHC 33.3 g/dL (32.0-36.0) [facility] RDW 14.2 % (10.5-14.5) [facility] PLT 172 10*3/uL (150-450) [facility] MPV 10.1 fL (7.1-10.7) [facility] ID Date Data Source [id number] 03/13/2021 06:10:47 AM EDT [facility] Name Value Range Interpretation Code Description Data Chayo rce(s) Supporting Document(s) POC GLUCOSE 141 mg/dL (70-99) H [facility] NOTIFIED PROVIDERNOTIFIED NURSEPERFORMED BY CLINICAL STAFF ID Date Data Source [id number] 03/13/2021 12:18:02 AM EDT [facility] Name Value Range Interpretation Code Description Data Chayo rce(s) Supporting Document(s) URIC ACID 4.1 mg/dL (2.6-6.0) [facility] ID Date Data Source [id number] 03/13/2021 12:18:02 AM EDT [facility] Name Value Range Interpretation Code Description Data Chayo rce(s) Supporting Document(s) LDH 149 U/L (84-246) [facility] ID Date Data Source [id number] 03/13/2021 12:18:02 AM EDT [facility] Name Value Range Interpretation Code Description Data Chayo rce(s) Supporting Document(s) SODIUM 138 mmol/L (136-145) [facility] POTASSIUM 4.2 mmol/L (3.6-5.2) [facility] CHLORIDE 106 mmol/L (100-108) [facility] CO2 19 mmol/L (22-31) L [facility] ANION GAP 13 mmol/L (7-16) [facility] UREA NITROGEN 12 mg/dL (7-24) [facility] CREATININE 0.72 mg/dL (0.60-1.00) [facility] BUN/CREAT RATIO 16.7 RATIO (10.0-20.0) [facility] GLUCOSE 200 mg/dL (70-99) H [facility] CALCIUM 8.2 mg/dL (8.4-10.2) L [facility] TOTAL PROTEIN 5.9 g/dL (6.4-8.2) L [facility] ALBUMIN 2.6 g/dL (3.5-4.6) L [facility] GLOBULIN 3.3 g/dL (2.7-4.3) [facility] ALB/GLOB RATIO 0.8 RATIO [facility] ALKALINE PHOSPHATASE 148 U/L (45-117) H [facility] BILIRUBIN,TOTAL 0.2 mg/dL (0.0-1.0) [facility] PLEASE NOTE:Total bilirubin results may be falselyelevated in patients taking Eltrombopag. AST (SGOT) 10 U/L (11-39) L [facility] ALT (SGPT) 17 U/L (12-78) [facility] GFR >60 ml/min/1.73m2 (>59) [facility] GFR ( AMER) >60 ml/min/1.73m2 (>59) [facility] GFR INTERPRETATION [facility] --NORMAL KIDNEY FUNCTION OR MILD DISEASE - GFR >OR= 60CHRONIC KIDNEY DISEASE - GFR 15 - 59RENAL FAILURE - GFR <15 Est. GFR calculation based on the MDRDstudy equation, which assumes a steadystate for creatinine. Est. GFR should notbe used for medication dosing. ID Date Data Source [id number] 03/13/2021 12:02:57 AM EDT [facility] Name Value Range Interpretation Code Description Data Chayo rce(s) Supporting Document(s) WBC 16.7 10*3/uL (4.1-11.0) H [facility] RBC 4.08 10*6/uL (4.00-5.40) [facility] HGB 12.6 g/dL (12.0-16.0) [facility] HCT 37.7 % (36.0-47.0) [facility] MCV 92.5 fL (80.0-95.0) [facility] MCH 31.0 pg (27.0-32.0) [facility] MCHC 33.5 g/dL (32.0-36.0) [facility] RDW 14.6 % (10.5-14.5) H [facility] PLT 180 10*3/uL (150-450) [facility] MPV 10.1 fL (7.1-10.7) [facility] ID Date Data Source [id number] 03/12/2021 09:07:42 PM EDT [facility] Name Value Range Interpretation Code Description Data Chayo rce(s) Supporting Document(s) POC GLUCOSE 251 mg/dL (70-99) H [facility] NOTIFIED PROVIDERNOTIFIED NURSEPERFORMED BY CLINICAL STAFF ID Date Data Source [id number] 03/12/2021 11:04:[facility]: [facility]IOPHYSICAL PROF ILE INDICATION: NON-REACTIVE NST COMPARISON: Biophysical profile dated 03/11/2021 TECHNIQUE: well-being was assessed by the following parameters: amniotic fluid, respiration, movement, and tone. Images obtained transabdominally. FINDINGS: Twin intrauterine gestation. Twin A: Spontaneous movement and cardiac activity identified. Breech presentation, head maternal left. heart rate measures: 127 bpm. MVP: 4.3 cm Amniotic fluid- 2, respiration- 2, movement- 2, and tone- 2. Total exam time: 20 minutes Twin B: Spontaneous movement and cardiac activity identified. Cephalic, head maternal right. heart rate measures: 133 bpm. MVP: 3.4 cm Amniotic fluid- 2, respiration- 2, movement- 2, and tone- 2. Total exam time: 24 minutes IMPRESSION: Twin gestation Normal biophysical profile, 8 out of 8. Professional interpretation performed at [facility] .End of diagnostic report for accession: [id number] Interpreted: Waleska Jones MDTranscribed: 03/12/2021 11:02 PMSigned: 03/12/2021 11:04 PM Waleska Jones MD [facility] ACC # [id number] BILL # [id number] Name Value Range Interpretation Code Description Data Chayo rce(s) Supporting Document(s) ID Date Data Source [id number] 03/12/2021 11:04:[address] [facility] DATE OF EXAM: 03/12/2021IOPHYSICAL PROF ILE INDICATION: NON-REACTIVE NST COMPARISON: Biophysical profile dated 03/11/2021 TECHNIQUE: well-being was assessed by the following parameters: amniotic fluid, respiration, movement, and tone. Images obtained transabdominally. FINDINGS: Twin intrauterine gestation. Twin A: Spontaneous movement and cardiac activity identified. Breech presentation, head maternal left. heart rate measures: 127 bpm. MVP: 4.3 cm Amniotic fluid- 2, respiration- 2, movement- 2, and tone- 2. Total exam time: 20 minutes Twin B: Spontaneous movement and cardiac activity identified. Cephalic, head maternal right. heart rate measures: 133 bpm. MVP: 3.4 cm Amniotic fluid- 2, respiration- 2, movement- 2, and tone- 2. Total exam time: 24 minutes IMPRESSION: Twin gestation Normal biophysical profile, 8 out of 8. Professional interpretation performed at [facility] .End of diagnostic report for accession: [id number] Interpreted: Waleska Jones MDTranscribed: 03/12/2021 11:02 PMSigned: 03/12/2021 11:04 PM Waleska Jones MD [facility] ACC # [id number] BILL # [id number] Name Value Range Interpretation Code Description Data Chayo rce(s) Supporting Document(s) ID Date Data Source [id number] 03/12/2021 11:36:27 AM EDT [facility] Name Value Range Interpretation Code Description Data Chayo rce(s) Supporting Document(s) POC GLUCOSE 176 mg/dL (70-99) H [facility] PERFORMED BY CLINICAL STAFF ID Date Data Source [id number] 03/12/2021 09:48:58 AM EDT [facility] Name Value Range Interpretation Code Description Data Chayo rce(s) Supporting Document(s) POC GLUCOSE 117 mg/dL (70-99) H [facility] PERFORMED BY CLINICAL STAFF ID Date Data Source [id number] 03/12/2021 12:03:00 AM EDT [facility] DATE OF EXAM: 03/11/2021IOPHYSICAL PROF ILE INDICATION: NRNST COMPARISON: None TECHNIQUE: well-being was assessed by the following parameters: amniotic fluid, respiration, movement, and tone. Images obtained transabdominally. FINDINGS: Twin intrauterine gestation. Twin A: Spontaneous movement and cardiac activity identified. Breech presentation, head maternal left. heart rate measures: 135 bpm. Amniotic fluid- 2, respiration- 2, movement- 2, and tone- 2. Total exam time: 23 minutes Twin B: Spontaneous movement and cardiac acti vity identified. Cephalic, head maternal right. heart rate measures: 144 bpm. Amniotic fluid- 2, respiration- 2, movement- 2, and tone- 2. Total exam time: 13 minutes IMPRESSION: Twin gestation Normal biophysical profile, 8 out of 8. Professional interpretation performed at [place] [facility]End of diagnostic report for accession: [id number] Interpreted: Waleska Jones MDTranscribed: 03/12/2021 12:01 AMSigned: 03/12/2021 12:03 AM Waleska Jones MD [facility] # [id number] BILL # [id number] Name Value Range Interpretation Code Description Data Chayo rce(s) Supporting Document(s) ID Date Data Source [id number] 03/12/2021 12:03:[address] [facility] DATE OF EXAM: 1BIOPHYSICAL PROF ILE INDICATION: NRNST COMPARISON: None TECHNIQUE: well-being was assessed by the following parameters: amniotic fluid, respiration, movement, and tone. Images obtained transabdominally. FINDINGS: Twin intrauterine gestation. Twin A: Spontaneous movement and cardiac activity identified. Breech presentation, head maternal left. heart rate measures: 135 bpm. Amniotic fluid- 2, respiration- 2, movement- 2, and tone- 2. Total exam time: 23 minutes Twin B: Spontaneous movement and cardiac acti vity identified. Cephalic, head maternal right. heart rate measures: 144 bpm. Amniotic fluid- 2, respiration- 2, movement- 2, and tone- 2. Total exam time: 13 minutes IMPRESSION: Twin gestation Normal biophysical profile, 8 out of 8. Professional interpretation performed at [facility] .End of diagnostic report for accession: [id number] Interpreted: Waleska Jones MDTranscribed: 03/12/2021 12:01 AMSigned: 03/12/2021 12:03 AM Waleska Jones MD [facility] ACC # [id number] BILL # [id number] Name Value Range Interpretation Code Description Data Chayo rce(s) Supporting Document(s) ID Date Data Source [id number] 03/11/2021 10:48:04 PM EDT [facility] Name Value Range Interpretation Code Description Data Chayo rce(s) Supporting Document(s) POC GLUCOSE 240 mg/dL (70-99) H [facility] NOTIFIED PROVIDERNOTIFIED NURSEPERFORMED BY CLINICAL STAFF ID Date Data Source [id number] 03/11/2021 05:23:15 PM EDT [facility] Name Value Range Interpretation Code Description Data Chayo rce(s) Supporting Document(s) POC GLUCOSE 151 mg/dL (70-99) H [facility] PERFORMED BY CLINICAL STAFF ID Date Data Source [id number] 03/11/2021 03:28:00 PM EDT [facility] DATE OF EXAM: 03/11/2021 OBSTETRICAL SO NOGRAM INDICATION: IUGR baby B COMPARISON: None TECHNIQUE: Images of the pelvis were obtained using transabdominal technique. Umbilical artery Doppler evaluation for baby B was performed. FINDINGS: The examination demonstrates a twin intrauterine . Baby A is in a breech presentation, on the maternal left. Biparietal diameter - 82mm, 32 weeks 5 daysHead circumference - 282mm, 30 weeks 6 daysAbdominal circumference - 252mm, 29 weeks 3 daysFemoral length - 60mm, 31 weeks 3 daysHead/abdomen ratio - 1.12 (normal range 0.97 - 1.18)Femur/abdomen ratio - 24 (normal 20-24)Cephalic index - 87 (normal 70- 86)Approximate weight - 1573gm Real-time examination demonstrates spontaneous motion and cardiac activity. There is no evidence of ascites, pericardial effusion, or hydrocephalus. Fluid is seen in the area of the urinary bladder and stomach. A three-vessel umbilical cord is noted. The heart rate is 140 beats per minute. The placenta is located posterior. There is no evidence of low lying placenta or placenta previa. The amount of amniotic fluid is qualitatively normal. The maximum vertical pocket of fluid is 6.1cm. An intervening membrane is noted. Baby B is in a vertex presentation on maternal right. Biparietal diameter - 72mm, 29 weeks 0 daysHead circumference - 264mm, 28 weeks 5 daysAbdominal circumference - 208mm, 25 weeks 2 daysFemoral length - 52mm, 27 weeks 6 daysHead/abdomen ratio - 1.27 (normal range 0.97- 1.18)Femur/abdomen ratio - 25 (normal 20-24)Cephalic index - 87 (normal 70- 86)Approximate weight - 981gm Real-time examination demonstrates spontaneous motion and cardiac activity. There is no evidence of ascites, pericardial effusion, or hydrocephalus. Fluid is seen in the area of the stomach. A three-vessel umbilical cord is noted. The heart rate is 124 beats per minute. The placenta is located fundal. There is no evidence of low lying placenta or placenta previa. The amount of amniotic fluid is qualitatively normal. The maximum vertical pocket of fluid is 4.2cm. Umbilical artery average systolic to diastolic velocity ratio is 6.0 with multiple episodes of no diastolic flow. Cervix is not well visualized The maternal uterus and adnexa are unremarkable. IMPRESSION: Gestation - twinPresentationBaby A - breech maternal left Baby B - vertex maternal right Average Gestational ageBaby A - 31 weeks one dayBaby B - 27 weeks five daysPlacenta Baby A - posterior Baby B - fundal Amniotic fluid Baby A - normal Baby B - normal Comments: Limited evaluation of anatomy secondary to position and multiple gestations.Baby B: Umbilical artery average systolic to diastolic velocity ratio is 6.0 with multiple episodes of no diastolic flow. Professional interpretation performed by [facility] Medical Imaging at [facility] [phone] of diagnostic report for accession: [id number] Interpreted: Nirmal Cleary MDTranscribed: 03/11/2021 03:18 PMSigned: 03/11/2021 03:28 PM Nirmal Cleary MD [facility] # [id number] [facility] # [id number] Name Value Range Interpretation Code Description Data Chayo rce(s) Supporting Document(s) ID Date Data Source [id number] 03/11/2021 03:28:00 PM EDT [facility] DATE OF EXAM: 03/11/2021 OBSTETRICAL SO NOGRAM INDICATION: IUGR baby B COMPARISON: None TECHNIQUE: Images of the pelvis were obtained using transabdominal technique. Umbilical artery Doppler evaluation for baby B was performed. FINDINGS: The examination demonstrates a twin intrauterine . Baby A is in a breech presentation, on the maternal left. Biparietal diameter - 82mm, 32 weeks 5 daysHead circumference - 282mm, 30 weeks 6 daysAbdominal circumference - 252mm, 29 weeks 3 daysFemoral length - 60mm, 31 weeks 3 daysHead/abdomen ratio - 1.12 (normal range 0.97 - 1.18)Femur/abdomen ratio - 24 (normal 20-24)Cephalic index - 87 (normal 70- 86)Approximate weight - 1573gm Real-time examination demonstrates spontaneous motion and cardiac activity. There is no evidence of ascites, pericardial effusion, or hydrocephalus. Fluid is seen in the area of the urinary bladder and stomach. A three-vessel umbilical cord is noted. The heart rate is 140 beats per minute. The placenta is located posterior. There is no evidence of low lying placenta or placenta previa. The amount of amniotic fluid is qualitatively normal. The maximum vertical pocket of fluid is 6.1cm. An intervening membrane is noted. Baby B is in a vertex presentation on maternal right. Biparietal diameter - 72mm, 29 weeks 0 daysHead circumference - 264mm, 28 weeks 5 daysAbdominal circumference - 208mm, 25 weeks 2 daysFemoral length - 52mm, 27 weeks 6 daysHead/abdomen ratio - 1.27 (normal range 0.97- 1.18)Femur/abdomen ratio - 25 (normal 20-24)Cephalic index - 87 (normal 70- 86)Approximate weight - 981gm Real-time examination demonstrates spontaneous motion and cardiac activity. There is no evidence of ascites, pericardial effusion, or hydrocephalus. Fluid is seen in the area of the stomach. A three-vessel umbilical cord is noted. The heart rate is 124 beats per minute. The placenta is located fundal. There is no evidence of low lying placenta or placenta previa. The amount of amniotic fluid is qualitatively normal. The maximum vertical pocket of fluid is 4.2cm. Umbilical artery average systolic to diastolic velocity ratio is 6.0 with multiple episodes of no diastolic flow. Cervix is not well visualized The maternal uterus and adnexa are unremarkable. IMPRESSION: Gestation - twinPresentationBaby A - breech maternal left Baby B - vertex maternal right Average Gestational ageBaby A - 31 weeks one dayBaby B - 27 weeks five daysPlacenta Baby A - posterior Baby B - fundal Amniotic fluid Baby A - normal Baby B - normal Comments: Limited evaluation of anatomy secondary to position and multiple gestations.Baby B: Umbilical artery average systolic to diastolic velocity ratio is 6.0 with multiple episodes of no diastolic flow. Professional interpretation performed by [facility] Medical Imaging at [facility] [phone] of diagnostic report for accession: [id number] Interpreted: Nirmal Cleary MDTranscribed: 03/11/2021 03:18 PMSigned: 03/11/2021 03:28 PM Nirmal Cleary MD [facility] ACC # [id number] BILL # [id number] Name Value Range Interpretation Code Description Data Chayo rce(s) Supporting Document(s) ID Date Data Source [id number] 03/11/2021 03:28:00 PM EDT [facility] DATE OF EXAM: 03/11/2021 OBSTETRICAL SO NOGRAM INDICATION: IUGR baby B COMPARISON: None TECHNIQUE: Images of the pelvis were obtained using transabdominal technique. Umbilical artery Doppler evaluation for baby B was performed. FINDINGS: The examination demonstrates a twin intrauterine . Baby A is in a breech presentation, on the maternal left. Biparietal diameter - 82mm, 32 weeks 5 daysHead circumference - 282mm, 30 weeks 6 daysAbdominal circumference - 252mm, 29 weeks 3 daysFemoral length - 60mm, 31 weeks 3 daysHead/abdomen ratio - 1.12 (normal range 0.97 - 1.18)Femur/abdomen ratio - 24 (normal 20-24)Cephalic index - 87 (normal 70- 86)Approximate weight - 1573gm Real-time examination demonstrates spontaneous motion and cardiac activity. There is no evidence of ascites, pericardial effusion, or hydrocephalus. Fluid is seen in the area of the urinary bladder and stomach. A three-vessel umbilical cord is noted. The heart rate is 140 beats per minute. The placenta is located posterior. There is no evidence of low lying placenta or placenta previa. The amount of amniotic fluid is qualitatively normal. The maximum vertical pocket of fluid is 6.1cm. An intervening membrane is noted. Baby B is in a vertex presentation on maternal right. Biparietal diameter - 72mm, 29 weeks 0 daysHead circumference - 264mm, 28 weeks 5 daysAbdominal circumference - 208mm, 25 weeks 2 daysFemoral length - 52mm, 27 weeks 6 daysHead/abdomen ratio - 1.27 (normal range 0.97- 1.18)Femur/abdomen ratio - 25 (normal 20-24)Cephalic index - 87 (normal 70- 86)Approximate weight - 981gm Real-time examination demonstrates spontaneous motion and cardiac activity. There is no evidence of ascites, pericardial effusion, or hydrocephalus. Fluid is seen in the area of the stomach. A three-vessel umbilical cord is noted. The heart rate is 124 beats per minute. The placenta is located fundal. There is no evidence of low lying placenta or placenta previa. The amount of amniotic fluid is qualitatively normal. The maximum vertical pocket of fluid is 4.2cm. Umbilical artery average systolic to diastolic velocity ratio is 6.0 with multiple episodes of no diastolic flow. Cervix is not well visualized The maternal uterus and adnexa are unremarkable. IMPRESSION: Gestation - twinPresentationBaby A - breech maternal left Baby B - vertex maternal right Average Gestational ageBaby A - 31 weeks one dayBaby B - 27 weeks five daysPlacenta Baby A - posterior Baby B - fundal Amniotic fluid Baby A - normal Baby B - normal Comments: Limited evaluation of anatomy secondary to position and multiple gestations.Baby B: Umbilical artery average systolic to diastolic velocity ratio is 6.0 with multiple episodes of no diastolic flow. Professional interpretation performed by [facility] Medical Imaging at [facility] [phone] of diagnostic report for accession: [id number] Interpreted: Nirmal Cleary MDTranscribed: 03/11/2021 03:18 PMSigned: 03/11/2021 03:28 PM Nirmal Cleary MD [facility] # [id number] BILL # [id number] Name Value Range Interpretation Code Description Data Chayo rce(s) Supporting Document(s) ID Date Data Source [id number] 03/11/2021 12:22:53 PM EDT [facility] Name Value Range Interpretation Code Description Data Chayo rce(s) Supporting Document(s) POC GLUCOSE 145 mg/dL (70-99) H [facility] PERFORMED BY CLINICAL STAFF ID Date Data Source [id number] 03/12/2021 10:56:21 AM EDT [facility] SPECIMEN DESCRIPTION URINE, COLLE CTION METHOD NOT SPECIFIEDCULTURE RESULTS >10,000 TO <100,000 CFU/ML BETA HEMOLYTIC STREPTOCOCCI GROUP B ISOLATEDBETA HEMOLYTIC STREPTOCOCCI ARE STILL UNIFORMLY SUSCEPTIBLE TOPENICILLIN, CEPHALOSPORINS AND VANCOMYCIN. REPORT STATUS FINAL 03/12/2021 Name Value Range Interpretation Code Description Data Chayo rce(s) Supporting Document(s) ID Date Data Source [id number] 03/11/2021 09:34:58 AM EDT [facility] Name Value Range Interpretation Code Description Data Chayo rce(s) Supporting Document(s) PROTEIN,URINE 71 mg/dL [facility] URINE PROTEIN MAY BE FALSELY ELEVATEDDUR ING TREATMENT WITH AMINOGLYCOSIDESDUE TO METHOD INTERFERENCE. CREATININE,URINE 61.10 mg/dL [facility] URINE TP/CR RATIO 1.16 RATIO (0.00-0.20) H [facility] ID Date Data Source [id number] 03/11/2021 09:31:27 AM EDT [facility] Name Value Range Interpretation Code Description Data Chayo rce(s) Supporting Document(s) URINE WBC (0-5) [facility] URINE RBC (0-2) [facility] EPITHELIAL CELLS 1+ [HPF] [facility] BACTERIA 1+ [HPF] [facility] MUCUS 1+ [HPF] [facility] HYALINE CASTS [facility] ID Date Data Source [id number] 03/11/2021 08:58:25 AM EDT [facility] Name Value Range Interpretation Code Description Data Chayo rce(s) Supporting Document(s) COLOR [facility] APPEARANCE [facility] SPEC GRAV URINE 1.028 (1.003-1.030) [facility] PH URINE 6.5 (5.0-7.5) [facility] LEUK ESTERASE (NEG) A [facility] NITRITE URINE (NEG) [facility] PROTEIN URINE 1+ (NEG) A [facility] GLUCOSE URINE 3+ (NEG) A [facility] KETONE URINE (NEG) A [facility] UROBILINOGEN 0.2 mg/dL (0-1.0) [facility] [place] BILIRUBIN URINE (NEG) [facility] BLOOD/HGB URINE 1+ (NEG) A [facility] ID Date Data Source [id number] 03/11/2021 08:22:18 AM EDT [facility] Name Value Range Interpretation Code Description Data Chayo rce(s) Supporting Document(s) POC GLUCOSE 126 mg/dL (70-99) H [facility] PERFORMED BY CLINICAL STAFF ID Date Data Source [id number] 03/11/2021 03:34:06 AM EDT [facility] Name Value Range Interpretation Code Description Data Chayo rce(s) Supporting Document(s) POC GLUCOSE 232 mg/dL (70-99) H [facility] PERFORMED BY CLINICAL STAFF ID Date Data Source [id number] 03/10/2021 11:30:00 PM EDT [facility] Name Value Range Interpretation Code Description Data Chayo rce(s) Supporting Document(s) SARS coronavirus 2 RNA [Presence] in Res piratory specimen by KEILA with probe detection NOT DETECTED [facility] This lab was reported by [facility]. ID Date Data Source [id number] 03/11/2021 01:12:54 PM EDT [facility] Name Value Range Interpretation Code Description Data Chayo rce(s) Supporting Document(s) TREPONEMA IGG/IGM @ (NEG) [facility] ID Date Data Source [id number] 03/11/2021 08:30:41 AM EDT [facility] Name Value Range Interpretation Code Description Data Chayo rce(s) Supporting Document(s) SPECIMEN DESCRIPTION [facility] COVID19 RESULT (NDET) [facility] THIS ASSAY AMPLIFIES AND DETECTSTHE TARG ET RNA USING REAL-TIME PCR.TESTING PERFORMED ON THE [employer] COMMENT [facility] UNDER AN EMERGENCY USE AUTHORIZATION(EUA ) FOR THE DETECTION AND/OR DIAGNOSISOF THE VIRUS THAT CAUSES COVID-19.NEGATIVE 2019_NCOV RT-PCR RESULTS DONOT PRECLUDE 2019_NCOV INFECTION ANDSHOULD NOT BE USED THE SOLE BASISFOR PATIENT MANAGEMENT DECISIONS. FIRST TEST [facility] SYMPTOMATIC [facility] [place] DATE OF SYMPT ONSET [facility] HOSPITALIZED [facility] [place] ICU [facility] CONGREGATE CARE SET [facility] ID Date Data Source [id number] 03/11/2021 03:31:16 AM EDT [facility] SPEC EXP DATE 1PATI ENT ABO/Rh B POSITIVEANTIBODY SCREEN NEGATIVETESTING SITE PERFORMED AT [address] [place] [address] Name Value Range Interpretation Code Description Data Chayo rce(s) Supporting Document(s) ID Date Data Source [id number] 03/10/2021 11:50:07 PM EDT [facility] Name Value Range Interpretation Code Description Data Chayo rce(s) Supporting Document(s) WBC 11.0 10*3/uL (4.1-11.0) [facility] RBC 4.58 10*6/uL (4.00-5.40) [facility] HGB 14.0 g/dL (12.0-16.0) [facility] HCT 41.8 % (36.0-47.0) [facility] MCV 91.3 fL (80.0-95.0) [facility] MCH 30.5 pg (27.0-32.0) [facility] MCHC 33.4 g/dL (32.0-36.0) [facility] RDW 14.2 % (10.5-14.5) [facility] PLT 166 10*3/uL (150-450) [facility] MPV 10.8 fL (7.1-10.7) H [facility] ID Date Data Source [id number] 03/04/2021 12:00:00 AM EDT [facility] Name Value Range Interpretation Code Description Data Chayo rce(s) Supporting Document(s) SARS coronavirus 2 Ag NEGATIVE [facility] This lab was ordered by [facility] and reported by [facility]. ID Date Data Source [id number] 03/01/2021 06:18:00 AM EDT [facility] Name Value Range Interpretation Code Description Data Chayo rce(s) Supporting Document(s) SARS-CoV-2 (COVID-19) RNA [Presence] in Respiratory specimen by KEIAL with probe detection Not Detected [facility] This lab was ordered by [facility] and reported by [employer] ID Date Data Source [id number] 02/25/2021 12:00:00 AM EDT [facility] Name Value Range Interpretation Code Description Data Chayo rce(s) Supporting Document(s) SARS coronavirus 2 Ag NEGATIVE [facility] This lab was ordered by [facility] and reported by [facility]. ID Date Data Source [id number] 02/22/2021 06:37:00 AM EDT [facility] Name Value Range Interpretation Code Description Data Chayo rce(s) Supporting Document(s) SARS-CoV-2 (COVID-19) RNA [Presence] in Respiratory specimen by KEILA with probe detection Not Detected [facility] This lab was ordered by [facility] and reported by [employer] ID Date Data Source [id number] 02/18/2021 12:00:00 AM EDT [facility] Name Value Range Interpretation Code Description Data Chayo rce(s) Supporting Document(s) SARS coronavirus 2 Ag NEGATIVE [facility] This lab was ordered by [facility] and reported by [facility]. ID Date Data Source [id number] 02/15/2021 07:40:00 AM EDT [facility] Name Value Range Interpretation Code Description Data Chayo rce(s) Supporting Document(s) SARS-CoV-2 (COVID-19) RNA [Presence] in Respiratory specimen by KEILA with probe detection Not Detected [facility] This lab was ordered by [facility] and reported by [employer] ID Date Data Source [id number] 02/12/2021 12:00:00 AM EDT [facility] Name Value Range Interpretation Code Description Data Chayo rce(s) Supporting Document(s) SARS coronavirus 2 Ag NEGATIVE [facility] This lab was ordered by [facility] and reported by [facility]. ID Date Data Source [id number] 02/04/2021 12:00:00 AM EDT [facility] Name Value Range Interpretation Code Description Data Chayo rce(s) Supporting Document(s) SARS coronavirus 2 Ag NEGATIVE [facility] This lab was ordered by [facility] and reported by [facility]. ID Date Data Source [id number] 02/01/2021 05:58:00 AM EDT [facility] Name Value Range Interpretation Code Description Data Chayo rce(s) Supporting Document(s) SARS-CoV-2 (COVID-19) RNA [Presence] in Respiratory specimen by KEILA with probe detection Not Detected [facility] This lab was ordered by [facility] and reported by [employer] ID Date Data Source [id number] 01/25/2021 10:49:00 AM EDT [facility] Name Value Range Interpretation Code Description Data Chayo rce(s) Supporting Document(s) SARS-CoV-2 (COVID-19) RNA [Presence] in Respiratory specimen by KEILA with probe detection Not Detected [facility] This lab was ordered by [facility] and reported by [employer] ID Date Data Source [id number] 01/18/2021 06:00:00 AM EDT [facility] Name Value Range Interpretation Code Description Data Chayo rce(s) Supporting Document(s) SARS-CoV-2 (COVID-19) RNA [Presence] in Respiratory specimen by KEILA with probe detection Not Detected [facility] This lab was ordered by [facility] and reported by [employer] ID Date Data Source [id number] 01/16/2021 12:51:07 PM EDT [facility] Name Value Range Interpretation Code Description Data Chayo rce(s) Supporting Document(s) Progress Note [facility] [id number] [file] [id number] ID Date Data Source [id number] 01/14/2021 12:00:00 AM EDT [facility] Name Value Range Interpretation Code Description Data Chayo rce(s) Supporting Document(s) SARS coronavirus 2 Ag NEGATIVE [facility] This lab was ordered by [facility] and reported by [facility]. ID Date Data Source [id number] 01/04/2021 09:31:00 AM EDT [facility] Name Value Range Interpretation Code Description Data Chayo rce(s) Supporting Document(s) SARS-CoV-2 (COVID-19) RNA [Presence] in Respiratory specimen by KEILA with probe detection Not Detected [facility] This lab was ordered by [facility] and reported by [employer] ID Date Data Source [id number] 12/28/2020 06:05:00 AM EDT [facility] Name Value Range Interpretation Code Description Data Chayo rce(s) Supporting Document(s) SARS-CoV-2 (COVID-19) RNA [Presence] in Respiratory specimen by KEILA with probe detection Not Detected [facility] This lab was ordered by [facility] and reported by [employer] ID Date Data Source [id number] 11/05/2020 12:00:00 AM EST [facility] Name Value Range Interpretation Code Description Data Chayo rce(s) Supporting Document(s) SARS coronavirus 2 Ag NEGATIVE [facility] This lab was ordered by [facility] and reported by [facility]. ID Date Data Source [id number] 11/02/2020 11:00:00 AM EST [facility] Name Value Range Interpretation Code Description Data Chayo rce(s) Supporting Document(s) SARS coronavirus 2 RNA Not Detected [facility] This lab was ordered by [facility] and reported by [facility]. ID Date Data Source [id number] 10/08/2020 05:11:00 AM EST [facility] Name Value Range Interpretation Code Description Data Chayo rce(s) Supporting Document(s) BHCG 257177.0 mIU/mL [facility] GESTATIONAL AGE HCG mIU/ML0.2 - 1 WEEK 5 - 501 - 2 WEEKS 50 - 5002 - 3 WEEKS 100 - 87145 - 4 WEEKS 500 - 529367 - 5 WEEKS 1000 - 017500 - 6 WEEKS 71794 - 4793031 - 8 WEEKS 95393 - 1473012 - 3 MONTHS 04941 - 572258 ADULT MALES, AGES 19 - 67 <= 1.0NON- FEMALES, AGES 18 - 62 1 - 3 ID Date Data Source [id number] 10/08/2020 04:42:00 AM EST [facility] Name Value Range Interpretation Code Description Data Chayo rce(s) Supporting Document(s) HCG QUAL SERUM Positive Negative [facility] ID Date Data Source [id number] 10/08/2020 04:44:00 AM EST [facility] Name Value Range Interpretation Code Description Data Chayo rce(s) Supporting Document(s) URINE COLOR Yellow [facility] UAPR Clear [facility] UGLU Negative NEGATIVE [facility] URINE BILIRUBIN [facility] Negative NEGATIVE [facility] USG 1.020 1.010-1.025 [facility] UBLO 3+ NEGATIVE [facility] UpH 5.5 5.0-8.0 [facility] UPRO Negative Negative [facility] UUB 0.2 mg/dL 0.2-1.0 [facility] UNIT Negative Negative [facility] ULEU Trace Negative [facility] ID Date Data Source [id number] 10/08/2020 04:44:00 AM EST [facility] Name Value Range Interpretation Code Description Data Chayo rce(s) Supporting Document(s) URINE RBC 11-20 RBCs/HPF NONE SEEN N [facility] l URINE WBC 3-5 WBCs/HPF NONE SEEN [facility] URINE BACTERIA Few NONE SEEN N [facility] l URINE EPI. Few NONE SEEN [facility] ID Date Data Source [id number] 10/08/2020 04:26:00 AM EST [facility] Name Value Range Interpretation Code Description Data Chayo rce(s) Supporting Document(s) WBC 10.32 x10E3/uL 4.0-10.5 N [facility] l RBC 4.07 x10E6/uL 4.20-5.40 [facility] Hemoglobin 12.3 g/dL 12.0-16.0 [facility] Hematocrit 36.0 % 37.0-47.0 [facility] MCV 88.5 fL 81.0-99.0 [facility] MCH 30.2 pg 27.0-31.0 [facility] MCHC 34.2 g/dL 32.7-35.6 [facility] RDW 12.7 % 11.5-14.0 [facility] Platelet count 202 x10E3/uL 150-450 [facility] ital MPV 11.9 fl 6.9-9.5 [facility] Neutrophils 75.6 % 34-64 [facility] Lymphocytes 16.3 % 25-45 L [facility] Monocytes 5.3 % 1.7-10.6 [facility] Eosinophils 1.6 % 0.4-7.0 [facility] Basophils 0.6 % 0.1-2.0 [facility] Imm. Gran. 0.6 % 0.1-2.0 [facility] Abs. Neutro. 7.81 x10E3/uL 1.2-7.6 [facility] Lymph[facility] 1.68 x10E3/uL 1.0-3.5 [facility] Abs. [place]. 0.55 x10E3/uL 0.1-1.0 [facility] Abs. Eosin. 0.16 x10E3/uL 0.1-0.7 [facility] Abs. Baso. 0.06 x10E3/uL 0.0-0.1 [facility] Abs. Imm. Gran. 0.06 x10E3/uL 0.0-0.1 [facility] ANRBC% 0 % 0 [facility] ID Date Data Source [id number] 10/08/2020 05:29:00 AM EST [facility] Physician DocumentationClaxton-Agustin Clemons edical CenterName: Margie YanezksAge: 20 yrsSex: FemaleDOB: 2000MRN: [id number] Date: 10/08/2020Time: 03:43Account#: [id number] MD: Out of town provider, -ED Physician Bright Christianson Summary:10/08/20 05:17Discharge OrderedLocation: Home Self Care ra2Czjyzuc: new me0Yvwseuxc: have improved ql9Sgqljxmyq: Improved gw1Xhyveutaa- Threatened sa7Uzucpfqn: th4- With: Private Physician- When: 2 - 3 days- Reason: Recheck today's complaints, Continuance of careDischarge Instructions:- Discharge Summary Sheet th4- , Threatened kv9Gjzec:- Medication Reconciliation th4- Medication Reconciliation Form - 2nd Copy th4HPI:09/2803:08 This 20 yrs old Black Female presents to ER via Private Vehicle with oo0tacknyxncj of Vaginal Bleeding.04:08 Patient comes the ER today for evaluation of vaginal bleeding that ji7zfltxht just prior to arrival. She describes the blood is dark.Patient is currently . She is a at approximately 9weeks. 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 Vitamin Oral2. Aspirin Oral- PMHx: None;- PSHx: None;- Immunization history: Flu vaccine is up to date.- Social history: Smoking status: Patient states former smoker ofVisys. ETOH status Denies use of ETOH.- Advance Directives:: None.ROS:04:10 Constitutional: Negative for chills, fever. Eyes: Negative for acute tx8jgwdgnx. ENT: Negative for nasal discharge, rhinorrhea, sinuscongestion. [...] External exam: is normal, Speculum exam: scant zs5xseaimnv, no cervicitis, os that is closed, bimanual [...] signs, nurses notes, lab test result(s). ED se1doszsw: Patient remained stable in the ER. Patient [...] for discharge. 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 We discussed return precautions. Patient iswell-appearing, well-hydrated, not ill or toxic in any way. Bloodtype is B+..09/2802:58 Order name: CBC with diff; Complete Time: 04:32 :58 Order name: SHCG; Complete Time: 04:48 :58 Order name: UA; Complete Time: 04:48 :58 Order name: Saline Lock; Complete Time: 04:25 :58 Order name: Set Up Pelvic Exam; Complete Time: 04:33 :58 Order name: Quantitave HCG; Complete Time: 05:12 sm0Rgxybwymp Medications:No medications were administeredSignatures:Dispatcher [employer] Chaitanya Kim MD MD [id number], MAXINE Wetzel RN fw Name Value Range Interpretation Code Description Data Chayo rce(s) Supporting Document(s) ID Date Data Source [id number] 10/08/2020 05:29:00 AM EST [facility] Nurse's NotesClaxCatholic Health Medical Kelly terName: Margie HicksAge: 20 yrsSex: FemaleDOB: 2000MRN: [id number] Date: 10/08/2020Time: 03:43Account#: [id number] MD: Out of town provider, -Diagnosis: Threatened abortionPresentation:09/2802:44 [...] no Have you traveled to a location [facility] or ongoing COVID-19 community spread or outside [facility]? 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 fw04:33 Reassessment: No changes from previously documen carroll assessment. fwVital Signs:03:50 BP 169 / 90; [...] given. Pillow given. Head ofbed elevated.04:01 Rashard Canada, RN is Primary Nurse. fw04:25 Labs drawn. (by ED staff). Urine collected. Clean catch specimen. fwInserted saline lock: 20 gauge in left wrist and blood collected.05:21 No Physician assisted procedures completed. Discontinued lock intact, fwbleeding controlled, pressure dressing applied, No redness/swellingat site.Administered Medications:No medications were administeredOutcome:05:17 Discharge ordered by . th405:22 Disposition: Discharged to home ambulatory. fw05:22 Condition: stable, Condition: crgeedxi06:22 Discharge instructions given to patient, Instructed on dischargeinstructions, follow up and referral plans. medication usage.05:22 Discharge Assessment: Patient verbalized understanding of dispositioninstructions. Patient has no functional deficits.05:29 Patient left the ED. fwSignatures:Chaitanya Christianson MD MD [id number] RN RN fw Name Value Range Interpretation Code Description Data Chayo rce(s) Supporting Document(s) ID Date Data Source [id number] 09/21/2020 09:58:00 AM EST [facility] [address] [place] [address] PHONE: [phone] FAX: [phone] Name .................. : MI Zheng Acct Number.................. : [id number] ROOM. ................. : TR-02 Number ................... : [id number] Stay type ............. : E/R Discharge Date......... ... : 09/18/20 Admit Date ......... : 09/18/20 Admit Phys .................... : COONEYNORM Date of ....... : 2000 Family Phys ................... : UNKNOWN Phone .................. : [phone] Age ................................ : 20 Film# .................. .:[id number] Sex ................................. : F Unsigned transcriptions are preliminary reports and do not represent a medical or [place] [id number] COMPLETE:09/18/20 19:06 BAW 1801 Reason(s): vi ability [...] serial sonography is recommended. Examination dictated by WILLIAM Kent. Examination was reviewed with Bravo Sterling MD, radiologist at the time of this dictation. Electronically Reviewed and Signed By [address] 2 [place] [address] PHONE: [phone] FAX: [phone] Name .................. : MI Zheng Acct Number.................. : [id number] ROOM. ................. : TR- Number ................... : [id number] Stay type ............. : E/R Discharge Date......... ... : 09/18/20 Admit Date ......... : 09/18/20 Admit Phys .................... : COONEYNORM Date of ....... : 2000 Family Phys ................... : UNKNOWN Phone .................. : [phone] Age ................................ : 20 Film# .................. .:[id number] Sex ................................. : F Unsigned transcriptions are preliminary reports and do not represent a medical or legal [place] [id number] COMPLETE:09/18 19:06 BAW 1801 Reason(s): viability ectopic Bravo Sterling M.D. , 09/21/20 09:58, [place] Transcribe Initials: SAMAN , Transcribe Date: 09/19/20 02:55, Dictation Date: Copy for: TARA KAUR via fax Copy for: EMERGENCY DEPT via mode Copy for: 710 MED REC DISCHARGED Page 2 of 2 Name Value Range Interpretation Code Description Data Chayo rce(s) Supporting Document(s) ID Date Data Source [id number] 09/18/2020 01:52:00 PM EST [facility] 1 OrderSheet [facility] Emergency Department [address] [place] [address] Phone #: ext- [phone] 09/18/2020 13:40 Patient: MARGIE STARK Sex: F : 2000 Age: 20yWEIGHT:87.5 kg (S) HEIGHT:66 inches (S) BMI:31.2ALLERGIES: NoneDIAGNOSIS: Patient currently LAB ORDERSOrder Description Priority Entered Acknowledged InitialedCBC w Diff STAT 14:09/18/2020 14:44 Maged THOMAS;Chlamydia/GC STAT 14:09/18/2020 14:44 Maged THOMAS; NOTES: urineCMP STAT 14:09/18/2020 14:44 Maged THOMAS;Culture, Urine STAT 14:09/18/2020 14:43 Maged(Urine, Clean Puneet López) WILLIAM;Type Rh STAT 14:09/18/2020 14:44 Maged THOMAS;Urinalysis (Clean STAT 14:09/18/2020 14:43 MagedCatch) Puneet THOMAS;Beta-HCG, Quant STAT 14:09/18/2020 14:44 MagedSerum Puneet THOMAS;DIAGNOSTIC STUDY ORDERSOrder Description Priority Entered Acknowledged InitialedUS OB STAT 15:10 09/18/2020 Ack'd: 1 5:23 15:37 GALINA GandaraVAGINAL Kinga Thomas RMargauxNMargaux [facility]; R.NMargaux(IV?(No))(Oxygen?(No)) Reason for Study: viability ectopicMEDICATION/IV/DRIP/FLUID ORDERS 2 OrderSheet [facility] Emergency Department [address] [place] [address] Phone #: ext- [phone] 09/18/2020 13:40 Patient: MARGIE STARK Sex: F : 2000 Age: 20yOrder Description Priority Entered Acknowledged InitialedGENERAL ORDERSOrder Description Priority Entered Acknowledged InitialedNPO 14:07 09/18/2020 14:43 Maged THOMAS;[Electronically signed by Julissa Bolden R.N. (16:29 09/18/2020)][Electronically signed by Puneet Mercado (21:21 09/18/2020)][Electronically locked by Julissa Bolden R.N. (16:29 09/18/2020)] Name Value Range Interpretation Code Description Data Chayo rce(s) Supporting Document(s) ID Date Data Source [id number] 09/18/2020 01:52:00 PM [facility] 1 Medication Reconciliation Report [facility] Emergency Department [address] [place] [address] Phone #: ext- [phone] 09/18/2020 13:40 Patient: MARGIE STARK Sex: F : 2000 Age: 20yWeight: 87.5 kgHeight/Length: 66 in.BMI: 31.2ALLERGIES: NoneThe patient's Home Medications are listed below:NONE.The source(s) of the original Home Medication information:Not obtained.The following Medications were given to the patient in the Emergency Department:None.The following Medications were prescribed to the patient:None. Name Value Range Interpretation Code Description Data Chayo rce(s) Supporting Document(s) ID Date Data Source [id number] 09/18/2020 01:52:00 PM [facility] 1 Medication Administration Record [facility] Emergency Department [address] [place] [address] Phone #: ext- [phone] 09/18/2020 13:40 Patient: MARGIE STARK Sex: F : 2000 Age: 20yWeight: 87.5 kgHeight/Length: 66 inBMI: 31.2ALLERGIES: NoneDate/Time Medication Administered Medication Ordered Name Value Range Interpretation Code Description Data Chayo rce(s) Supporting Document(s) ID Date Data Source [id number] 09/18/2020 01:52:00 PM EST [facility] 1 General Instructions [facility] Emergency Department [address] [place] [address] Phone #: ext- [phone] 09/18/2020 13:40 Patient: MARGIE STARK Sex: F : 2000 Age: 20yFirst [...] by patient. ADDITIONAL INFORMATIONPregnancy 2 General Instructions [facility] Emergency Department [address] [place] [address] Phone #: ext- [phone] 09/18/2020 13:40 Patient: MARGIE STARK Sex: F : 2000 Age: 20yYour [...] baby is born healthy: 3 General Instructions [facility] Emergency Department [address] [place] [address] Phone #: ext- [phone] 09/18/2020 13:40 Patient: MARGIE STARK Sex: F : 2000 Age: 20y Rest [...] You can seeyour family provider, a specialist (armored transport service manager), a midwi fe, or a primary care clinic.When to seek medical adviceCall your healthcare provider right away if any of these occur: Vaginal bleeding Pain in your belly (abdomen) or back that is moderate or severe Lots of vomiting, or you can't keep any fluids down for 6 hours 4 General Instructions [facility] Emergency Department [address] [place] [address] Phone #: ext- [phone] 09/18/2020 13:40 Patient: MARGIE STARK Sex: F : 2000 Age: 20y Burning feeling when you urinate Headache, dizziness, or rapid weight gain Fever Vision changes or blurred vision [phone] [employer]. [address] [place] [address]. All rights reserved. This information is not intended as asubstitute for professional medical care. Always follow your healthcare professional's instructions. You have been given the following additional information: , New Dx(Electronically signed by WILLIAM Domingo 09/18/2020 21:21) Name Value Range Interpretation Code Description Data Chayo rce(s) Supporting Document(s) ID Date Data Source [id number] 09/18/2020 01:52:00 PM EST [facility] 1 Clinical Report - Nurses [facility] Emergency Department [address] [place] [address] Phone #: ext- [phone] 09/18/2020 13:40 Patient: MARGIE STARK Sex: F : 2000 Age: 20yTRIAGEArrived by private vehicle. Historian: patient. Accompanied by family. ( pt is 6 weeks , nothaving any symptoms where she was having swelling of breast and other symptoms, called obbut she cannot be seen until oct).Acuity: LEVEL 4.Chief Complaint: (not having any symptoms).Alert.Onset. (3 days ago). ( runny nose, headache).Treatment ALTERATION INSPECTOR:None.SEPSIS SCREEN: SIRS SCREEN NEGATIVE. SEPSIS SCREEN NEGATIVE. [...] or CRE. 2 Clinical Report - Nurses [facility] Emergency Department [address] [place] [address] Phone #: djr- [phone] 09/18/2020 13:40 Patient: MARGIE STARK Sex: F : 2000 Age: 20y [...] Bolden R.N. late entry - 14:35 09/18/20. William canchola gowned. Reassurance given. Rounding: Position: states comfortable. Proximity of possessions / care items: call light within easy reach. Set expectations: advised patient of rounding protocol timing and asked if they needed anything else at this time. The patient reports no complaints and she is calm and resting quietly. Three patient identifiers 3 Clinical Report - Nurses [facility] Emergency Department [address] [place] [address] Phone #: ext- [phone] 09/18/2020 13:40 Patient: MARGIE STARK Sex: F : 2000 Age: 20y checked. Call light placed in reach. Side rails up x 2. Bed placed in lowest position. Brakes of bed on. --15:26 09/18/20 Kinga Gandara R.N. Patient returned from sonogram by wheelchair with mask and technology adoption manager. --15:41 09/18/20 Kinga Gandara R.N. 15:45 09/18/20. BP: 138/60. MAP: 86. HR: 62. RR: 16. O2 saturation: 99% on room air. --15:45 09/18/20 Kinga Gandara R.N.DISPOSITION / DISCHARGE No learning barriers present. Patient verbalized understanding. ( follow up with md for repeat beta). Written instructions not provided in Bangladeshi. The patient was discharged home and accompanied by family. She left ambulatory and via private vehicle. Family member driving. --16:29 09/18/20 Julissa Bolden R.N. 16:28 09/18/20. BP: 132/74. MAP: 93. HR: 60. RR: 18. O2 saturation: 99%. Temp: 98.2 F. Pain level now: 0/10. --16:29 09/18/20 Julissa Bolden R.N. Departure time: 16:29 09/18/2020. --16:29 09/18/20 Julissa Bolden R.N.Locked/Released at 09/18/2020 16:29 by Julissa Bolden R.N. Name Value Range Interpretation Code Description Data Chayo rce(s) Supporting Document(s) ID Date Data Source [id number] 09/18/2020 01:52:00 PM [facility] 1 Clinical Report - Physicians/Mid Levels [facility] Emergency Department [address] [place] [address] Phone #: ext- [phone] 09/18/2020 13:40 [id number] Sex: F : 2000 Age: 20y Time [...] normal. 2 Clinical Report - Physicians/Mid Levels [facility] Emergency Department [address] [place] [address] Phone #: ext- [phone] 09/18/2020 13:40 Patient: MARGIE STARK Sex: F : 2000 Age: 20y [...] NONE SEEN ) PLT EST NORMAL (NORMAL: ALEYDA COMMENT: 3 Clinical Report - Physicians/[facility] Emergency Department [address] [place] [address] Phone #: yai- [phone] 09/18/2020 13:40 Patient: MARGIE STARK Sex: F : 2000 Age: 20y [...] Male GFR Interprentation 20-49 yrs >60 mL/min Bizsxp49-59 yrs >56 mL/min Normal 60-69 yrs >49 mL/min Normal 70-79yrs>42 mL/min Normal 80 and above >35 mL/min Normal Female GFRInterpretation 20-39 yrs >60 mL/min Normal 40-49 yrs >58 mL/minNormal 50-59 yrs >51 mL/min Normal 60-69 yrs >45 mL/min Dutmmv08-36 yrs >39 mL/min Normal 80 and above [...] Negat 4 Clinical Report - Physicians/Mid Levels [facility] Emergency Department [address] [place] [address] Phone #: ext- [phone] 09/18/2020 13:40 Patient: MARGIE STARK Sex: F : 0 2000 Age: [...] Test Result Flag Units (Reference) HCG QUANT 71025.0 mIU/mL Interpretation: Less than 5 mU/mL: Negative 6-10 mU/mL: Borderline (suggest repeat in 48 hours) >10: Positive Approx HCG range (mU/mL) Weeks post LMP 5.4-708 mU/mL 3-4 Weeks 217-01859 mU/mL 5-6 Weeks 4059-332318 mU/mL 7-8 Weeks 69016-365795 mU/mL 9-10 Weeks 61948-53666 mU/mL 12-14 Weeks 70697-77181 mU/mL 15-16 Weeks 8240-26121 mU/mL 17-18 Weeks . Note - Tests: [...] sonography is recommended.).PROGRESS AND PROCEDURESCourse of Care: 16:17 Sep 18 2020. Evaluation after observation. (Discussed US, [...] if 5 Clinical Report - Physicians/Mid Levels [facility] Emergency Department [address] [place] [address] Phone #: ext- [phone] 09/18/2020 13:40 Patient: MARGIE STARK Sex: F : 2000 Age: 20y bleeding. Your Current Medications: . No home medication. Follow-up: Follow up with your doctor Monday. Reason for referral: evaluation and repeat Beta HCG today it was 11,181, repea US when Indicated. Summary of care provided to patient. Understanding of the discharge instructions verbalized by patient.(Electronically signed by WILLIAM Domingo 09/18/2020 21:21) Name Value Range Interpretation Code Description Data Chayo rce(s) Supporting Document(s) ID Date Data Source [id number] 09/22/2020 09:55:00 AM EST [facility] Name Value Range Interpretation Code Description Data Chayo rce(s) Supporting Document(s) CULTURE URINE [facility] Ho spital _CULTURE URINE_$$[id number]$$[id number]$$779254$$094641$$033823$$420964$$222018$$758916$$203646$$ 653443$$449323$$964124$$858231$$619808$$718302$$692723$$657138$$467222$$465840$$ 984931$$000308$$769462$$682346$$759567$$923382$$544028$$380847 -- Continued on next page --Patient: MI Zheng Order: [id number] Page 2Culture: CULTURE URINE Status: Final ====$$[id number]$$[id number] DATE/TIME: 09/22/2020 08:08Culture: CULTURE URINE Status: FinalUrine Culture,Comprehensive: U6Kbudg urogenital flora10,000-25,000 colony forming units per mLIsolate [...] group B Flag: AP1 Test performed by: Omer ZABALAIA #: [id number] [address] [facility] [id number] [facility] [id number] Director : Tod Posey MD NPI #:[place] Marshal : 09/22/[email or web address] REF ID Date Data Source [id number] 09/22/2020 06:15:00 AM EST [facility] Name Value Range Interpretation Code Description Data Chyao rce(s) Supporting Document(s) Chlamydia trachomatis rRNA [Presence] in Unspecified specimen by Probe and target amplification method Negative Negative [facility] Neisseria gonorrhoeae rRNA [Presence] in Unspecified specimen by Probe and target amplification method Negative Negative [facility] ID Date Data Source [id number] 09/18/2020 03:57:00 PM EST [facility] Name Value Range Interpretation Code Description Data Chayo rce(s) Supporting Document(s) URINALYSIS [facility] yellow NORMAL: Yellow [facility] CLARITY hazy NORMAL: Clear [facility] Ho spital Specific gravity of Urine by Test strip 1.015 1.001 - 1.030 [facility] pH 6 5 - 9 [facility] Glucose [Mass/volume] in Urine by Test strip NORM NORMAL: Negat [facility] Bilirubin.total [Presence] in Urine by Test strip NEG NORMAL: Negative [facility] Ketones [Presence] in Urine by Test strip NEG NORMAL: Negative [facility] Protein [Mass/volume] in Urine by Test strip NEG NORMAL: Negat [facility] Nitrite [Presence] in Urine by Test strip NEG NORMAL: Negative [facility] BLOOD NEG NORMAL: Negative [facility] Leukocyte esterase [Presence] in Urine by Test strip 500 ALEYDA L: Negative [facility] Urobilinogen [Mass/volume] in Urine by Test strip NOR less concha n 1.0 mg/dL [facility] MICROSCOPIC See Below [facility] ital WBC 3 - 5 NORMAL: NONE SEEN [facility] Erythrocytes [#/volume] in Urine by Test strip 1 - 3 NORMAL: NON E SEEN [facility] EPITHELIAL MODERATE NORMAL: NONE SEEN A [facility] Bacteria [Presence] in Urine sediment by Light microscopy 1+ SMALL NORMAL: NONE SEEN [facility] ID Date Data Source [id number] 09/18/2020 03:40:00 PM [facility] Name Value Range Interpretation Code Description Data Chayo rce(s) Supporting Document(s) ABO group [Type] in Blood B [facility] Rh [Type] in Blood POSITIVE [facility] { ABO/RH REENTER B POSITIVE ID Date Data Source [id number] 09/18/2020 03:09:00 PM EST [facility] Name Value Range Interpretation Code Description Data Chayo rce(s) Supporting Document(s) Choriogonadotropin.intact [Units/volume] in Serum or Plasma 71814.0 mIU/mL [facility] Interpr etation: Less than 5 mU/mL: Negative 6-10 mU/mL: Borderline (suggest repeat in 48 hours) >10: Positive Approx HCG range (mU/mL) Weeks post LMP 5.4-708 mU/mL 3-4 Weeks 217-83603 mU/mL 5-6 Weeks 4059-549748 mU/mL 7-8 Weeks 31664-930906 mU/mL 9-10 Weeks 80457-11177 mU/mL 12-14 Weeks 84933-92571 mU/mL 15-16 Weeks 8240- 71473 mU/mL 17-18 Weeks ID Date Data Source [id number] 09/18/2020 03:09:00 PM [facility] Name Value Range Interpretation Code Description Data Chayo rce(s) Supporting Document(s) COMPREHENSIVE METABOLIC PANEL [facility] COMPREHENSIVE METABOLIC PANEL Sodium [Moles/volume] in Serum or Plasma 132 mEq/L 134 - 153 L [facility] Potassium [Moles/volume] in Serum or Plasma 4.1 mEq/L 3.6 - 5.0 [facility] Chloride [Moles/volume] in Serum or Plasma 100 mEq/L 98 - 107 [facility] Carbon dioxide, total [Moles/volume] in Serum or Plasma 25 MEQ/L 22 - 30 [facility] Glucose [Mass/volume] in Serum or Plasma 98 MG/DL 65 - 110 [facility] BUN 8 MG/DL 7 - 21 [facility] al Creatinine [Mass/volume] in Serum or Plasma 0.7 MG/DL 0.7 - 1.5 [facility] BUN/CREAT 11 8 - 27 [facility] al Protein [Mass/volume] in Serum or Plasma 6.7 G/DL 6.3 - 8.2 [facility] Albumin [Mass/volume] in Serum or Plasma 4.3 G/DL 3.9 - 5.0 [facility] Globulin [Mass/volume] in Serum by calculation 2.4 GM/DL 2.4 - 3.2 [facility] A/G RATIO 1.8 0.8 - 2.0 [facility] Calcium [Mass/volume] in Serum or Plasma 9.4 MG/DL 8.4 - 10.2 [facility] Bilirubin.total [Mass/volume] in Serum or Plasma <0.7 MG/DL 0.2 - 1.3 [facility] Alkaline phosphatase [Enzymatic activity/volume] in Serum or Plasma 48 U/L 38 - 126 [facility] Aspartate aminotransferase [Enzymatic activity/volume] in Serum or Plasma 12 U/L 5 - 40 [facility] Alanine aminotransferase [Enzymatic activity/volume] in Seru m or Plasma 13 U/L 7 - 56 [facility] Anion gap 3 in Serum or Plasma 7.0 mmol/L 8.0 - 16.0 L [facility] AGE 20 yrs [facility] al NON-AA GFR >60 mL/min [facility] ital AFR AMER GFR >60 mL/min [facility] Ho spital Male GFR In terprentation [...] >32 mL/min Normal ID Date Data Source [id number] 09/18/2020 02:34:00 PM EST [facility] Name Value Range Interpretation Code Description Data Chayo rce(s) Supporting Document(s) CBC W/AUTOMATED DIFF [facility] COMPLETE BLOOD COUNT Leukocytes [#/volume] in Blood by Automated count 6.8 10^3/uL 4.2 - 1 1.0 [facility] Erythrocytes [#/volume] in Blood by Automated count 4.23 10^6/uL 4. 20 - 5.40 [facility] Hemoglobin [Mass/volume] in Blood 13.0 g/dL 12.0 - 16.0 [facility] Hematocrit [Volume Fraction] of Blood by Automated count 38.2 % 3 7.0 - 47.0 [facility] Erythrocyte mean corpuscular volume [Entitic volume] by Auto mated count 90.3 fL 81.0 - 101 [facility] Erythrocyte mean corpuscular hemoglobin [Entitic mass] by Automated count 30.7 pg 27.0 - 34.0 [facility] Erythrocyte mean corpuscular hemoglobin concentration [Mass/volume] by Automated count 34.0 g/dL 31.0 - 36.0 [facility] Erythrocyte distribution width [Ratio] by Automated count 12.5 % 11.5 - 14.5 [facility] Platelets [#/volume] in Blood by Automated count 214 10^3/uL 150 - 45 0 [facility] Platelet mean volume [Entitic volume] in Blood by Automated count 10.9 fL 7.4 - 10.4 H [facility] Neutrophils/100 leukocytes in Blood by Automated count 68.3 % 37. 0 - 80.0 [facility] Lymphocytes/100 leukocytes in Blood by Manual count 22.9 % 25.0 - 40.0 L [facility] Monocytes/100 leukocytes in Blood by Automated count 6.9 % 3.0 - 8.0 [facility] Eosinophils/100 leukocytes in Blood by Automated count 0.9 % 0.0 - 7.0 [facility] Basophils/100 leukocytes in Blood by Automated count 0.6 % 0.0 - 2.5 [facility] %IG 0.4 % 0.0 - 0.0 [facility] %NRBC 0.0 % 0.0 - 0.0 [facility] Neutrophils [#/volume] in Blood by Automated count 4.64 10^3/uL 2.00 - 6.90 [facility] Lymphocytes [#/volume] in Blood by Automated count 1.56 10^3/uL 0.60 - 3.40 [facility] Monocytes [#/volume] in Blood by Automated count 0.47 10^3/uL 0.00 - 0.90 [facility] Eosinophils [#/volume] in Blood by Automated count 0.06 10^3/uL 0.00 - 0.70 [facility] Basophils [#/volume] in Blood by Automated count 0.04 10^3/uL 0.00 - 0.20 [facility] #IG 0.03 10^3/uL 0.00 - 0.10 [facility] H [facility]spital #NRBC 0.00 10^3/uL 0.00 - 0.00 [facility] MANUAL DIFF SEE BELOW [facility] ital Segmented neutrophils/100 leukocytes in Blood by Manual count 74 % 37 - 80 [facility] %LYMPH 22 % 25 - 40 L [facility] %MONO 4 % 3 - 8 [facility] al RBC MORPH SEE BELOW [facility] al Anisocytosis [Presence] in Blood by Light microscopy 1+ ALEYDA L: NONE SEEN A [facility] { SICKLE CELL (NORMAL: NONE SEEN ) Platelet adequacy [Presence] in Blood by Light microscopy NORMAL NORMAL: NORMAL [facility] COMMENT: Procedure Social History Code Duration Value Status Description Data Source(s ) Smoking 04/07/2021 04:33:00 PM EDT Denies Ever Smoked complete d Denies Ever Smoked [facility] Smoking 12/02/2020 12:00:00 AM EDT Former Smoker completed Former Smoker [email or web address] ([facility]) Vital Signs ID Date Data Source UNK Name Value Range Interpretation Code Description Data Source(s) Deprecated Oxygen saturation in Capillary blood by Oximetry 97 % Normal (applies to non-numeric results) 97 % [facility] Systolic blood pressure 127 mm[Hg] Normal (applies t o non-numeric results) 127 mm[Hg] [facility] Diastolic blood pressure 80 mm[Hg] Normal (applies to non-numeric results) 80 mm[Hg] [facility] Respiratory rate 18 min Normal (applies to non-numeric results) 18 min [facility] Heart rate 99 min Normal (applies to non-numeric resul ts) 99 min [facility] Body mass index (BMI) [Ratio] 37.9 kg/m2 No rmal (applies to non-numeric results) 37.9 kg/m2 [facility] Body height [id number] cm Normal (applies to non-numeric results) [id number] cm [facility] Body temperature 36.9 polly Normal (applies to non-numeric results) 36.9 polly [facility] Body weight Measured 235 [lb_av] Normal (applies to n on-numeric results) 235 [lb_av] [facility] Body weight 232.4 [lb_av] 232.4 [lb_av] W1 ([facility]) Body height [in_i] W1 ([facility]) Body mass index (BMI) [Ratio] 37.51 kg/m2 37.51 kg/m2 [facility] ([facility]) Systolic blood pressure 140 mm[Hg] 140 mm[Hg] e CW1 ([facility]) Diastolic blood pressure 72 mm[Hg] 72 mm[Hg] eCW1 ([facility]) ID Date Data Source [id number] 01/16/2021 12:51:07 PM EDT [facility] Name Value Range Interpretation Code Description Data Source(s) Body height Measured 66 in 66 in Upst [facility] WEIGHT RECORDED 238 lb 238 lb [facility] Patient Treatment Plan of Care Planned Activity Planned Date Details Description Data Source (s) Ketoconazole 20 MG/ML Medicated Shampoo 12/02/2020 12:00:00 AM EDT eCW1 ([facility]) Triamcinolone Acetonide 1 MG/ML Topical Cream 12/02/2020 12:00:00 A M EDT eCW1 ([facility])
--- OUTSIDE RECORDS SUMMARY | 2021-08-04 08:59 | CCD ---
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 [facility] TOTAL PROTEIN 7.6 g/dL (6.4-8.2) [facility] ALBUMIN 3.6 g/dL (3.5-4.6) [facility] GLOBULIN 4.0 g/dL (2.7-4.3) [facility] ALB/GLOB RATIO 0.9 RATIO [facility] ALKALINE PHOSPHATASE 124 U/L (45-117) H [facility] BILIRUBIN,TOTAL 0.3 mg/dL (0.0-1.0) [facility] PLEASE NOTE:Total bilirubin results may be falselyelevated in patients taking Eltrombopag. AST (SGOT) 12 U/L (11-39) [facility] ALT (SGPT) 32 U/L (12-78) [facility] GFR >60 ml/min/1.73m2 (>59) [facility] GFR ( AMER) >60 ml/min/1.73m2 (>59) [facility] GFR INTERPRETATION [facility] --NORMAL KIDNEY FUNCTION OR MILD DISEASE - GFR >OR= 60CHRONIC KIDNEY DISEASE - GFR 15 - 59RENAL FAILURE - GFR <15 Est. GFR calculation based on the MDRDstudy equation, which assumes a steadystate for creatinine. Est. GFR should notbe used for medication dosing. ID Date Data Source [id number] 04/07/2021 05:20:03 PM EDT [facility] Name Value Range Interpretation Code Description Data Chayo rce(s) Supporting Document(s) URIC ACID 9.3 mg/dL (2.6-6.0) H [facility] ID Date Data Source [id number] 04/07/2021 04:34:41 PM EDT [facility] Name Value Range Interpretation Code Description Data Chayo rce(s) Supporting Document(s) WBC 7.4 10*3/uL (4.1-11.0) [facility] RBC 5.27 10*6/uL (4.00-5.40) [facility] HGB 15.4 g/dL (12.0-16.0) [facility] HCT 47.1 % (36.0-47.0) H [facility] MCV 89.4 fL (80.0-95.0) [facility] MCH 29.3 pg (27.0-32.0) [facility] MCHC 32.7 g/dL (32.0-36.0) [facility] RDW 14.3 % (10.5-14.5) [facility] PLT 259 10*3/uL (150-450) [facility] MPV 9.8 fL (7.1-10.7) [facility] ID Date Data Source [id number] 04/08/2021 03:01:19 PM EDT [facility] SPECIMEN DESCRIPTION URINE, COLLE CTION METHOD NOT SPECIFIEDCULTURE RESULTS NO GROWTHREPORT STATUS FINAL 04/08/2021 Name Value Range Interpretation Code Description Data Chayo rce(s) Supporting Document(s) ID Date Data Source [id number] 04/07/2021 05:00:08 PM EDT [facility] Name Value Range Interpretation Code Description Data Chayo rce(s) Supporting Document(s) URINE WBC (0-5) [facility] URINE RBC (0-2) [facility] EPITHELIAL CELLS 1+ [HPF] [facility] ID Date Data Source [id number] 04/07/2021 04:35:47 PM EDT [facility] Name Value Range Interpretation Code Description Data Chayo rce(s) Supporting Document(s) COLOR [facility] APPEARANCE [facility] SPEC GRAV URINE 1.006 (1.003-1.030) [facility] PH URINE 5.5 (5.0-7.5) [facility] LEUK ESTERASE (NEG) A [facility] NITRITE URINE (NEG) [facility] PROTEIN URINE (NEG) A [facility] GLUCOSE URINE (NEG) [facility] KETONE URINE (NEG) [facility] UROBILINOGEN 0.2 mg/dL (0-1.0) [facility] BILIRUBIN URINE (NEG) [facility] BLOOD/HGB URINE 2+ (NEG) A [facility] ID Date Data Source [id number] 04/05/2021 02:37:47 PM EDT [facility] Name Value Range Interpretation Code Description Data Chayo rce(s) Supporting Document(s) Albumin [Mass/volume] in Serum or Plasma by Bromocresol green (BCG) dye binding method 4.0 g/dL 3.5-5.2 [facility] al Bilirubin.total [Mass/volume] in Serum or Plasma 0.3 mg/dL <1.2 [facility] Calcium [Mass/volume] in Serum or Plasma 9.0 mg/dL 8.6-10.0 [facility] Chloride [Moles/volume] in Serum or Plasma 104 mmol/L 98-107 [facility] Creatinine [Mass/volume] in Serum or Plasma 0.82 mg/dL 0.50-0.90 [facility] Glucose [Mass/volume] in Serum or Plasma 77 mg/dL 70-140 [facility] Alkaline phosphatase [Enzymatic activity/volume] in Serum or Plasma 111 U/L 35-104 H [facility] Potassium [Moles/volume] in Serum or Plasma 4.1 mmol/L 3.4-5.1 [facility] Protein [Mass/volume] in Serum or Plasma 6.9 g/dL 6.4-8.3 [facility] Sodium [Moles/volume] in Serum or Plasma 140 mmol/L 136-145 [facility] Aspartate aminotransferase [Enzymatic activity/volume] in Serum or Plasma 13 U/L <32 [facility] Urea nitrogen [Mass/volume] in Serum or Plasma 9 mg/dL 6-20 [facility] Osmolality of Serum or Plasma by calculation 287 mosm/kg 275-300 [facility] Creatinine/Urea nitrogen [Mass Ratio] in Serum or Plasma 11 [facility] Bicarbonate [Moles/volume] in Serum 24 mmol/L 22-29 [facility] Alanine aminotransferase [Enzymatic activity/volume] in Seru m or Plasma 21 U/L <33 [facility] Anion gap 3 in Serum or Plasma 12 mmol/L 8-15 [facility] Glomerular filtration rate/1.73 sq M pre dicted among non-blacks [Volume Rate/Area] in Serum or Plasma by Creatinine-based formula (MDRD) >6 0 [facility] Glomerular filtration rate/1.73 sq M pre dicted among blacks [Volume Rate/Area] in Serum or Plasma by Creatinine-based formula (MDRD) >60 [facility] ID Date Data Source [id number] 04/05/2021 02:37:47 PM [facility] Name Value Range Interpretation Code Description Data Chayo rce(s) Supporting Document(s) Urate [Mass/volume] in Serum or Plasma 8.6 mg/dl 2.4-5.7 H [facility] ID Date Data Source [id number] 04/05/2021 03:07:21 PM [facility] Value Range Interpretation Code Description Data Chayo rce(s) Supporting Document(s) Lactate dehydrogenase [Enzymatic activit y/volume] in Serum or Plasma by Lactate to pyruvate reaction 205 U/L 122-214 [facility] ID Date Data Source [id number] 04/05/2021 04:53:50 PM [facility] Value Range Interpretation Code Description Data Chayo rce(s) Supporting Document(s) Leukocytes [#/volume] in Blood by Automated count 5.0 10*3/uL 4-10 [facility] Erythrocytes [#/volume] in Blood by Automated count 4.77 10*6/uL 4.1- 5.3 [facility] Hemoglobin [Mass/volume] in Blood 14.2 g/dL 11.5-15.5 [facility] Hematocrit [Volume Fraction] of Blood by Automated count 43.6 % 3 6-45 [facility] Erythrocyte mean corpuscular volume [Entitic volume] by Auto mated count 91.4 fL 80-96 [facility] Erythrocyte mean corpuscular hemoglobin [Entitic mass] by Automated count 29.8 pg 27-33 [facility] Erythrocyte mean corpuscular hemoglobin concentration [Mass/volume] by Automated count 32.6 g/dL 32.0-36.0 [facility] E[facility]th[facility] distribution width [Ratio] by Automated count 13.8 % 11.5-14.5 [facility] Platelets [#/volume] in Blood by Automated count 238 10*3/uL 150-400 [facility] Confirmed Differential cell count method - Blood [facility] Neutrophils/100 leukocytes in Blood by Automated count 57 % [facility] Lymphocytes/100 leukocytes in Blood by Automated count 35 % [facility] Monocytes/100 leukocytes in Blood by Automated count 5 % [facility] Eosinophils/100 leukocytes in Blood by Automated count 2 % [facility] Basophils/100 leukocytes in Blood by Automated count 1 % [facility] Neutrophils [#/volume] in Blood by Automated count 2.92 10*3/uL 1.8-7 .0 [facility] Lymphocytes [#/volume] in Blood by Automated count 1.74 10*3/uL 1.2-4 .0 [facility] Monocytes [#/volume] in Blood by Automated count 0.23 10*3/uL 0-0.8 [facility] Eosinophils [#/volume] in Blood by Automated count 0.11 10*3/uL 0-0.5 [facility] Basophils [#/volume] in Blood by Automated count 0.04 10*3/uL 0-0.2 [facility] Nucleated erythrocytes/100 leukocytes [Ratio] in Blood by Automated count 0 /100{WBCs} 0-0 [facility] ID Date Data Source [id number] 04/05/2021 10:33:14 AM EDT [facility] Name Value Range Interpretation Code Description Data Chayo rce(s) Supporting Document(s) Progress Note [facility] WIQIYj5lOiMWVvKb06/ZYFgkZCUca3TfAPlfQNb8FApmHMWvL9RaELW2fB7rUUM2JNnCEjAjVzLdQfV6 lbm [file] AgICAgICAgICAgICAgICAgICAgICAgICAgICAgICAgICAgICAgICAgICAgICAgICAgICAgICAgICAgIC AgICAgICAgICAgICAgICAgICAgICAgICAgICAgICAg ICANCiAgICAgICAgICAgICAgICAgICAgICAgICAgICAgICAgICAgICAgICAgICAgICAgICAgICAgICAg ICAgICAgICAgICAgICAgICAgICAgICAgICAgICAgICAgICAgICAgICAgICANCiAgICAgICAgICAgICAg ICAgICAgICAgICAgICAgICAgICAgICAgICAgICAgIC AgICAgICAgICAgICAgICAgICAgICAgICAgICAgICAgICAgICAgICAgICAgICAgICAgICAgICANCiAgIC AgICAgICAgICAgICAgICAgICAgICAgICAgICAgICAgICAgICAgICAgICAgICAgICAgICAgICAgICAgIC AgICAgICAgICAgICAgICAgICAgICAgICAgICAgICAg ICAgICANCiAgICAgICAgICAgICAgICAgICAgICAgICAgICAgICAgICAgICAgICAgICAgICAgICAgICAg ICAgICAgICAgICAgICAgICAgICAgICAgICAgICAgICAgICAgICAgICAgICAgICANCiAgICAgICAgICAg ICAgICAgICAgICAgICAgICAgICAgICAgICAgICAgIC AgICAgICAgICAgICAgICAgICAgICAgICAgICAgICAgICAgICAgICAgICAgICAgICAgICAgICAgICANCi AgICAgICAgICAgICAgICAgICAgICAgICAgICAgICAgICAgICAgICAgICAgICAgICAgICAgICAgICAgIC AgICAgICAgICAgICAgICAgICAgICAgICAgICAgICAg ICAgICAgICANCiAgICAgICAgICAgICAgICAgICAgICAgICAgICAgICAgICAgICAgICAgICAgICAgICAg ICAgICAgICAgICAgICAgICAgICAgICAgICAgICAgICAgICAgICAgICAgICAgICAgICANCiAgICAgICAg ICAgICAgICAgICAgICAgICAgICAgICAgICAgICAgIC AgICAgICAgICAgICAgICAgICAgICAgICAgICAgICAgICAgICAgICAgICAgICAgICAgICAgICAgICAgIC ANCiAgICAgICAgICAgICAgICAgICAgICAgICAgICAgICAgICAgICAgICAgICAgICAgICAgICAgICAgIC AgICAgICAgICAgICAgICAgICAgICAgICAgICAgICAg ICAgICAgICAgICANCjw/pNRyR3yfaQQoatA4Y3oeGe7TXw6BEU3of7BdSXCsAVnvjdGpVngYScNvJFRs QiaFApx9XBkmTP4CeSWjV1WbU6CxWSjiZC8YKRQiTCAosSOoJKQvCRDrPqT3MYSfUYvbWL8MoIEiMXec MCHfEISnUeTwZDUnET6VQUDpR826wwToRw8JDq2EXh DbLR7ygb8FFiYkEBHnOxoYXck7NLvfTN9ZxEJyuHQxKxGlZTXZGbNqD2crl8JgQoCuUNPDCKqgXQ4Nh0 VudCAxDQo+Ek2UIB3iw0XgXGbxBgObFI2cnq4BDPzHYeBoE0MmkLlxTHFyf3vhEIUcUT4izMWrKBY8SM FwajAeFFLDMXfwPRxeLpQtOAPqEh1fFk0eIETwAOU8 RqDlSIRLNV4RTDCwEGMisEVpDWNqYLMXVU7TOKolDGS2UOEzprGprNZyEEmyJW9CCDHyxwGwMlFsPWHR DQo+Vy9LOH0aw3CkRCucSgIiZU4kgf3HFHfFRyUbI5T8mGGnX9E3XEasZm6EVMQqTUAaZHpuTPKRSRzq YY3BSA3dvxK1XD8BaGCmGXMcPPNpwZOzRSs2B85rfM QkJEaeKC9GNNY+Angelica+Qw4SDCXrSLXlVPCzTyZfZYDUXyNjC0GoR3UWz7NvP6IiKT14iIfhvvCtRDoaKL 1OLM8aMRDcCNORNT9LcSQktN4npkViALQjIFNNIrYkW96cgPQpFSYuDGWuACVtPb4DZWVnE7LdsqQgzB yfcxAqNWTsDNAJKK2IKIyzeuUfxOFkaJguFM91xYps MS4PKg4UUgBoAR8pzn9QuAPlWs6EBGVhOJ2HFVRpVGAzFCWgJMN8FBAiZgCbWUguMYYwYREnQYG6YJZa PIQdJP1QKeYbGLOsOKv9IGiwCTNuZAEluv6PSKGjCZXdBKI1QXSfEQAkRCApCIfmHEHbRFYuKIA7BZYs UIGaIG6VGhDiJBAmZAZmQCQwEFIrWANlju7PUZXbLP CqOiQ3QoIjPDAlASRgTEcbLDJmZRP7UnfuVZCkNEFdXK0SItGkYWWoKHO8JgQkENOpRWNuru5JFOTfJY JwGTpmWTZtQTZfTCFbWPfqLFEvZTL3GNDhFZKkPHUtBC4DIyPeZUNdYRYhJTHzAFMzVZIzlt7ORFAzAO ObJfB6ZHSgPHApYXKcZLwkPZVxKHM4KrqqEPQoCRQe KG4HDpGrAOJyBIq8HpRvUSMxIZHdtp7GUYAcOQNlTVfuLyHoWEGqLIWzTGdtAEJuPNN4TiYeERGtJKBa XU1TRaXgUMEmRKg4BASuWPOoXFXpif1RZKPnTMAiPYM3ZRFsUQSiNIVlAPaiEWFvHWP6EBJ1OMFkFCPm SU9OFxVlXEYlUvBrPpetCCIjWHMgdi9LKEMyVRYhHT B7KtYcYJQsZKCnBQmbBIHeVIHzQnBbTMTvUDMtKC6JCpKgNETvMvY5YTCbVTNsYGPfrs8ZzMIjeNtcnw 9GBWiBIr9LlGrqBJK3WOwuRz9tbTLxGiWrWBMYZx3BxeRqXWLlLCUFOIirAIHbCYjuZXBuUHZgXjCjUE ptWEbyIrO6SFQuAzQ7NOSkGRZlDvC1IrJmDaUyAATy LhTnDOWcYzCaGJM2QCG6QUB9OdM4ZRT+CL1pZIc+Sd0Jq9PtauC8fwDnLQbqQwEeKN0OBMQYI9ZASo== ID Date Data Source [id number] 03/23/2021 12:26:58 PM EDT [facility] Name Value Range Interpretation Code Description Data Chayo rce(s) Supporting Document(s) Progress Note [facility] QQSWRg4nUtDNUuVk85/GJRibYCDkk2AyVLiuSJv3PGapAQTnY2ShTOO2jE0pYXD2FRzLJjIgLiPuUiBq lbm [file] AgICAgICAgICAgICAgICAgICAgICAgICAgICAgICAg ICAgICAgICAgICAgICAgICAgICAgICAgICAgICAgICAgDQogICAgICAgICAgICAgICAgICAgICAgICAg ICAgICAgICAgICAgICAgICAgICAgICAgICAgICAgICAgICAgICAgICAgICAgICAgICAgICAgICAgICAg ICAgICAgICAgICAgICAgDQogICAgICAgICAgICAgIC AgICAgICAgICAgICAgICAgICAgICAgICAgICAgICAgICAgICAgICAgICAgICAgICAgICAgICAgICAgIC AgICAgICAgICAgICAgICAgICAgICAgICAgDQogICAgICAgICAgICAgICAgICAgICAgICAgICAgICAgIC AgICAgICAgICAgICAgICAgICAgICAgICAgICAgICAg ICAgICAgICAgICAgICAgICAgICAgICAgICAgICAgICAgICAgDQogICAgICAgICAgICAgICAgICAgICAg ICAgICAgICAgICAgICAgICAgICAgICAgICAgICAgICAgICAgICAgICAgICAgICAgICAgICAgICAgICAg ICAgICAgICAgICAgICAgICAgDQogICAgICAgICAgIC AgICAgICAgICAgICAgICAgICAgICAgICAgICAgICAgICAgICAgICAgICAgICAgICAgICAgICAgICAgIC AgICAgICAgICAgICAgICAgICAgICAgICAgICAgDQogICAgICAgICAgICAgICAgICAgICAgICAgICAgIC AgICAgICAgICAgICAgICAgICAgICAgICAgICAgICAg ICAgICAgICAgICAgICAgICAgICAgICAgICAgICAgICAgICAgICAgDQogICAgICAgICAgICAgICAgICAg ICAgICAgICAgICAgICAgICAgICAgICAgICAgICAgICAgICAgICAgICAgICAgICAgICAgICAgICAgICAg ICAgICAgICAgICAgICAgICAgICAgDQogICAgICAgIC AgICAgICAgICAgICAgICAgICAgICAgICAgICAgICAgICAgICAgICAgICAgICAgICAgICAgICAgICAgIC AgICAgICAgICAgICAgICAgICAgICAgICAgICAgICAgDQogICAgICAgICAgICAgICAgICAgICAgICAgIC AgICAgICAgICAgICAgICAgICAgICAgICAgICAgICAg CXAiGQQnDLAlIIQkSCBaVREhKKQdDBAgCBSvWZWvMTCkVCTrCODgLIElKGb0J0nmTXDvDUNxTS9fNLb2 Jz8+QIcQPxYlBGG6xwRmyR4LBV1px8HkCKhqDXXtc5XoXTm3PH9YEWQpNJrnRA5MBTmpug0UWCWfLHHh sROUx4bkTeExDZX2DJMqAfdrWH0BDALzV9ouqdMjCL FxRCEQXThtAOINCQ3AClOpE7EymG89WRZBQf1+SVwcqwRvUxuUOvK9DEShr0UwDHo9TP7FAWJrTqrvk1 MyXhPeGOPZSGxnOP4YDGB5FEU9AMVkAt8UHAIzP128alKqEX1AZs6EDkKpOI7gin7JDxNwZKAoYkfYNm c7KMbtDJ3RmOGiLZoZlk4ossIiofMMj9OujiYehOFB UQ0nzOTudbBSVBrvsZqmikbcOjSjNAWmDt3xEc5cKNUjYDQqWzWvSVXKWY9AAEAwBKOrwFAnXPQbEPWV TC4UWXfkATX7YDFwenPcoUVwQHspBB0WDMBmllRfPyEsUDWICCa+Oz4VZR0ae5NwXFkwLxSvPC0rco2O ROlUXzZqH4K0vVVxK6U5AEwlFj7EMYPfQEHqVpMvPZ TZMSksAZ9PHT5xbfC4IX0PaTKmLNBaBRGunZPgECg9F90cpBOeLHjdQM6UUVH+Angelica+Px0ZMQCxIWHvTG TdNzFfWMZNDlXiQ7RiV7DMu2OzF0SsXB49aCxznzLnLMdbGV6EMZ4kDPJtYZAROR1IzJSpzZ4sroAkXH HfPXJTHjIfA03mnUIyLPKyADFpAJSpUh1TREKrI1Fg btFguDpipuZvKZSqQRAXEI0QLSzadgRhiGKiqSreWY26qFyzYM3AGf6HJlGwZO9rba7SvCFeVe3MILYx Ji2AWITnYMEkKKDgAFK7NLDfYaTtBMxuHBRwCODcGZS3QCAsHYUzXT3AQkLdTLMfLrHxArBpNLKsGFMv yx7GPEOzDGXaFlejGWKhYBWrMTWnPTvmONCxBGVnAG S9HGOfCIMsQY7UWpEhNXNfMYO2QFEjTJHlFIMgpa8CVHZiCEGwKlQ3PQJmBXMjXBTpKOmyIFXrRFP9LQ b6NRPxQFUoDA2DHzTuGPDiQFV3WOXxHDGuARPaqa7RRTKbHWScPGi0IPAlHAPdUDPeYUuoVTNsXBR0UY L9FGIeCGCmUK8MVlXlLVWxYCRwEmndHVCbAXCzbs3O OAEtHCKlHdN2BuRmDVGxVJKjWKueTTXgIPA0Bpr8YZWoRESvNH2HVrPfVOIgOCf0CzFnNORpEYLgup0Q SVSfPBHiPYaePOViKFKwXBMeUBwaGLCnPMD8UPK8XPLgUWBeDD2MWhHnESHjQLexFCLkFPDfXWFnej9D DQJmQNBeDQR0ZwDsOPNgWQTpHQftLBGuTMM1YxGtME EmJQYeTZ2VHtXiFYTxRwW2ZJElXEYzILRjcy7TKPBuWDZmARv0JmQcNSKbHVSzQElcBSKtJLJpQLR0IE BrXYZcUI7XQtLgHKEpHzR3QeLvWOIuBYJrhb6BYACcJQWpGwziGCYhEDEpKXToCNffLPOwLWWoVCs5EH CjDIPlAM2DArIhJRQnQuCiNdbwNXTxRFTfmc5HyFQl gPoata7IZYxUHm7SqKweTJS1RTzyMj7gcPQpYdRwPJVTYf8HunYhDLZnACCKCNqlVMVwFGYvGnO2KUJ7 Dpm1EzU2UOCoQoSsBxSjIaDpYXxfAUFxOlU9LnE2GBEcZGboTRPtKwRjMgEiGOEvPTRbCwB6O4W4HwO+ OL8iHNi+Gk5Bx6BzdtO3uvVlLCffBaI9Rd2CCRYAT9BUBl== ID Date Data Source [id number] 03/16/2021 07:12:29 PM EDT [facility] Name Value Range Interpretation Code Description Data Chayo rce(s) Supporting Document(s) WBC 12.3 10*3/uL (4.1-11.0) H [facility] RBC 4.28 10*6/uL (4.00-5.40) [facility] HGB 12.9 g/dL (12.0-16.0) [facility] HCT 39.2 % (36.0-47.0) [facility] MCV 91.5 fL (80.0-95.0) [facility] MCH 30.1 pg (27.0-32.0) [facility] MCHC 32.9 g/dL (32.0-36.0) [facility] RDW 14.1 % (10.5-14.5) [facility] PLT 185 10*3/uL (150-450) [facility] MPV 10.0 fL (7.1-10.7) [facility] ID Date Data Source [id number] 03/16/2021 06:34:56 AM EDT [facility] Name Value Range Interpretation Code Description Data Chayo rce(s) Supporting Document(s) URIC ACID 4.6 mg/dL (2.6-6.0) [facility] ID Date Data Source [id number] 03/16/2021 06:34:56 AM EDT [facility] Name Value Range Interpretation Code Description Data Chayo rce(s) Supporting Document(s) LDH 240 U/L (84-246) [facility] ID Date Data Source [id number] 03/16/2021 06:34:56 AM EDT [facility] Name Value Range Interpretation Code Description Data Chayo rce(s) Supporting Document(s) SODIUM 136 mmol/L (136-145) [facility] POTASSIUM 4.3 mmol/L (3.6-5.2) [facility] CHLORIDE 104 mmol/L (100-108) [facility] CO2 23 mmol/L (22-31) [facility] ANION GAP 9 mmol/L (7-16) [facility] UREA NITROGEN 10 mg/dL (7-24) [facility] CREATININE 0.58 mg/dL (0.60-1.00) L [facility] BUN/CREAT RATIO 17.2 RATIO (10.0-20.0) [facility] GLUCOSE 97 mg/dL (70-99) [facility] CALCIUM 7.8 mg/dL (8.4-10.2) L [facility] TOTAL PROTEIN 5.7 g/dL (6.4-8.2) L [facility] ALBUMIN 2.4 g/dL (3.5-4.6) L [facility] GLOBULIN 3.3 g/dL (2.7-4.3) [facility] ALB/GLOB RATIO 0.7 RATIO [facility] ALKALINE PHOSPHATASE 159 U/L (45-117) H [facility] BILIRUBIN,TOTAL 0.4 mg/dL (0.0-1.0) [facility] PLEASE NOTE:Total bilirubin results may be falselyelevated in patients taking Eltrombopag. AST (SGOT) 15 U/L (11-39) [facility] ALT (SGPT) 21 U/L (12-78) [facility] GFR >60 ml/min/1.73m2 (>59) [facility] GFR ( AMER) >60 ml/min/1.73m2 (>59) [facility] GFR INTERPRETATION [facility] --NORMAL KIDNEY FUNCTION OR MILD DISEASE - GFR >OR= 60CHRONIC KIDNEY DISEASE - GFR 15 - 59RENAL FAILURE - GFR <15 Est. GFR calculation based on the MDRDstudy equation, which assumes a steadystate for creatinine. Est. GFR should notbe used for medication dosing. ID Date Data Source [id number] 03/16/2021 06:34:56 AM EDT [facility] Name Value Range Interpretation Code Description Data Chayo rce(s) Supporting Document(s) MAGNESIUM 4.8 mg/dL (1.7-2.4) H [facility] CONSISTENT WITH PREVIOUS RESULTS ID Date Data Source [id number] 03/16/2021 06:05:46 AM EDT [facility] Name Value Range Interpretation Code Description Data Chayo rce(s) Supporting Document(s) WBC 15.1 10*3/uL (4.1-11.0) H [facility] RBC 4.37 10*6/uL (4.00-5.40) [facility] HGB 13.1 g/dL (12.0-16.0) [facility] HCT 40.2 % (36.0-47.0) [facility] MCV 92.0 fL (80.0-95.0) [facility] MCH 30.1 pg (27.0-32.0) [facility] MCHC 32.7 g/dL (32.0-36.0) [facility] RDW 14.5 % (10.5-14.5) [facility] PLT 165 10*3/uL (150-450) [facility] MPV 9.6 fL (7.1-10.7) [facility] ID Date Data Source [id number] 03/15/2021 07:48:09 PM EDT [facility] Name Value Range Interpretation Code Description Data Chayo rce(s) Supporting Document(s) POC GLUCOSE 127 mg/dL (70-99) H [facility] PERFORMED BY CLINICAL STAFF ID Date Data Source [id number] 03/15/2021 03:05:00 PM EDT [facility] DATE OF EXAM: 1EXAM: Pregnan t Uterus Ltd, US Biophys Profile WO Stress Testing, US Biophys Profile WO Stress Testing, US Umbilical Artery Doppler INDICATION: SEVERE IUGR BABY B. COMPARISON: 03/13/2021 FINDINGS: Baby A: head to the maternal left. heart rate 138 bpm. Biophysical profile 04/18. Duration of examination: 11 minutes of imaging. Baby B: Head to the maternal right. heart rate one 32 bpm. Oligohydramnios, 2.5 cm maximum vertical pocket amniotic fluid. Biophysical profile 8. Duration of examination: 10 minutes of imaging. [...] flow. X7End of diagnostic report for accession: [id number] Interpreted: Valente Cleary MDTranscribed: 03/15/2021 02:59 PMSigned: 03/15/2021 03:05 PM Valente Cleary MD [facility] ACC # [id number] BILL # [id number] Name Value Range Interpretation Code Description Data Chayo rce(s) Supporting Document(s) ID Date Data Source [id number] 03/15/2021 03:05:00 PM EDT [facility] DATE OF EXAM: 03/15/2021XAM: Pregnan t Uterus [...] flow. X7End of diagnostic report for accession: [id number] Interpreted: Vlaente Cleary MDTranscribed: 03/15/2021 02:59 PMSigned: 03/15/2021 03:05 PM Valente Cleary MD [facility] # [id number] [facility] # [id number] Name Value Range Interpretation Code Description Data Chayo rce(s) Supporting Document(s) ID Date Data Source [id number] 03/15/2021 03:05:00 PM EDT [facility] DATE OF EXAM: 03/15/2021XAM: D-Sight, US Biophys Profile WO Stress Testing, US [...] flow. X7End of diagnostic report for accession: [id number] Interpreted: Valente Cleary MDTranscribed: 03/15/2021 02:59 PMSigned: 03/15/2021 03:05 PM Valente Cleary MD [facility] ACC # [id number] BILL # [id number] Name Value Range Interpretation Code Description Data Chayo rce(s) Supporting Document(s) ID Date Data Source [id number] 03/15/2021 03:05:00 PM EDT [facility] DATE OF EXAM: 03/15/2021XAM: Pregnan t [...] flow. X7End of diagnostic report for accession: [id number] Interpreted: Valente Cleary MDTranscribed: 03/15/2021 02:59 PMSigned: 03/15/2021 03:05 PM Valente Cleary MD [facility] ACC # [id number] BILL # [id number] Name Value Range Interpretation Code Description Data Chayo rce(s) Supporting Document(s) ID Date Data Source [id number] 03/17/2021 02:39:56 PM EDT [facility] [address] [place], [place] [address]Wvw# SURGICAL PATHOLOGY REPORTPatient Name:ALEXIA RIOSOB:2000Received:03/16/2021ccession #:[id number](s) Received: A: Twin placentaClinical Diagnosis and History: [...] B placenta B; D dividing membrane. (5 blocks)soila/Debbieeported: 03/17/2021Electronically Signed Out By Valente Gonzalez M.D. jzwPathology Associates [place], [place] [address]Technical component performed at [facility], Histopathology, [address] [place] [address], Formerly [facility].Reported at [facility], [address] [place] [address], [facility].This report may include immunohistochemical or in-situ hybridizationresults. Testing was developed and the performance c haracteristicsdetermined by [facility] [employer] [facility], as required byCLIA '88. The FDA has determined that approval for specific use is notnecessary for clinical use. The quality of Hematoxylin and Eosin stainsand as applicable, for all immunohistochemical and/or special stains,including positive and negative controls, were reviewed and consideredappropriate.ICD codes: O30.169YYX9 codes: A: 19035F(2) Name Value Range Interpretation Code Description Data Chayo rce(s) Supporting Document(s) ID Date Data Source [id number] 03/15/2021 06:55:24 AM EDT Lab [facility] Name Value Range Interpretation Code Description Data Chayo rce(s) Supporting Document(s) URIC ACID 4.0 mg/dL (2.6-6.0) Lab [facility] ID Date Data Source [id number] 03/15/2021 06:55:24 AM EDT Lab [facility] Name Value Range Interpretation Code Description Data Chayo rce(s) Supporting Document(s) LDH 183 U/L (84-246) [facility] ID Date Data Source [id number] 03/15/2021 06:55:24 AM EDT [facility] Name Value Range Interpretation Code Description Data Chayo rce(s) Supporting Document(s) SODIUM 138 mmol/L (136-145) Lab [facility] POTASSIUM 3.8 mmol/L (3.6-5.2) [facility] CHLORIDE 106 mmol/L (100-108) [facility] CO2 21 mmol/L (22-31) L [facility] ANION GAP 11 mmol/L (7-16) [facility] UREA NITROGEN 7 mg/dL (7-24) [facility] CREATININE 0.52 mg/dL (0.60-1.00) L [facility] BUN/CREAT RATIO 13.5 RATIO (10.0-20.0) [facility] GLUCOSE 127 mg/dL (70-99) H [facility] CALCIUM 8.2 mg/dL (8.4-10.2) L [facility] TOTAL PROTEIN 5.8 g/dL (6.4-8.2) L [facility] ALBUMIN 2.4 g/dL (3.5-4.6) L [facility] GLOBULIN 3.4 g/dL (2.7-4.3) [facility] ALB/GLOB RATIO 0.7 RATIO [facility] ALKALINE PHOSPHATASE 157 U/L (45-117) H [facility] BILIRUBIN,TOTAL 0.2 mg/dL (0.0-1.0) [facility] PLEASE NOTE:Total bilirubin results may be falselyelevated in patients taking Eltrombopag. AST (SGOT) 12 U/L (11-39) [facility] ALT (SGPT) 18 U/L (12-78) [facility] GFR >60 ml/min/1.73m2 (>59) [facility] GFR ( AMER) >60 ml/min/1.73m2 (>59) [facility] GFR INTERPRETATION [facility] --NORMAL KIDNEY FUNCTION OR MILD DISEASE - GFR >OR= 60CHRONIC KIDNEY DISEASE - GFR 15 - 59RENAL FAILURE - GFR <15 Est. GFR calculation based on the MDRDstudy equation, which assumes a steadystate for creatinine. Est. GFR should notbe used for medication dosing. ID Date Data Source [id number] 03/15/2021 06:10:25 AM EDT [facility] Name Value Range Interpretation Code Description Data Chayo rce(s) Supporting Document(s) WBC 11.4 10*3/uL (4.1-11.0) H [facility] RBC 4.37 10*6/uL (4.00-5.40) [facility] HGB 13.3 g/dL (12.0-16.0) [facility] HCT 40.2 % (36.0-47.0) [facility] MCV 92.0 fL (80.0-95.0) [facility] MCH 30.5 pg (27.0-32.0) [facility] MCHC 33.2 g/dL (32.0-36.0) [facility] RDW 14.4 % (10.5-14.5) [facility] PLT 174 10*3/uL (150-450) [facility] MPV 9.9 fL (7.1-10.7) [facility] ID Date Data Source [id number] 03/14/2021 09:58:22 PM EDT [facility] Name Value Range Interpretation Code Description Data Chayo rce(s) Supporting Document(s) POC GLUCOSE 150 mg/dL (70-99) H [facility] NOTIFIED PROVIDERNOTIFIED NURSEPERFORMED BY CLINICAL STAFF ID Date Data Source [id number] 03/14/2021 06:27:11 PM EDT [facility] Name Value Range Interpretation Code Description Data Chayo rce(s) Supporting Document(s) POC GLUCOSE 210 mg/dL (70-99) H [facility] PERFORMED BY CLINICAL STAFF ID Date Data Source [id number] 03/14/2021 02:18:15 PM EDT [facility] Name Value Range Interpretation Code Description Data Chayo rce(s) Supporting Document(s) POC GLUCOSE 163 mg/dL (70-99) H [facility] PERFORMED BY CLINICAL STAFF ID Date Data Source [id number] 03/14/2021 12:08:19 PM EDT [facility] Name Value Range Interpretation Code Description Data Chayo rce(s) Supporting Document(s) POC GLUCOSE 111 mg/dL (70-99) H [facility] PERFORMED BY CLINICAL STAFF ID Date Data Source [id number] 03/14/2021 11:26:46 AM EDT [facility] Name Value Range Interpretation Code Description Data Chayo rce(s) Supporting Document(s) WBC 10.9 10*3/uL (4.1-11.0) [facility] RBC 4.23 10*6/uL (4.00-5.40) [facility] HGB 13.0 g/dL (12.0-16.0) [facility] HCT 38.8 % (36.0-47.0) [facility] MCV 91.5 fL (80.0-95.0) [facility] MCH 30.8 pg (27.0-32.0) [facility] MCHC 33.6 g/dL (32.0-36.0) [facility] RDW 14.6 % (10.5-14.5) H [facility] PLT 174 10*3/uL (150-450) [facility] MPV 10.0 fL (7.1-10.7) [facility] ID Date Data Source [id number] 03/14/2021 09:28:31 AM EDT [facility] Name Value Range Interpretation Code Description Data Chayo rce(s) Supporting Document(s) SODIUM 139 mmol/L (136-145) [facility] POTASSIUM 4.1 mmol/L (3.6-5.2) [facility] CHLORIDE 108 mmol/L (100-108) [facility] CO2 21 mmol/L (22-31) L [facility] ANION GAP 10 mmol/L (7-16) [facility] UREA NITROGEN 8 mg/dL (7-24) [facility] CREATININE 0.50 mg/dL (0.60-1.00) L [facility] BUN/CREAT RATIO 16.0 RATIO (10.0-20.0) [facility] GLUCOSE 94 mg/dL (70-99) [facility] CALCIUM 8.7 mg/dL (8.4-10.2) [facility] TOTAL PROTEIN 6.1 g/dL (6.4-8.2) L [facility] ALBUMIN 2.6 g/dL (3.5-4.6) L [facility] GLOBULIN 3.5 g/dL (2.7-4.3) [facility] ALB/GLOB RATIO 0.7 RATIO [facility] ALKALINE PHOSPHATASE 159 U/L (45-117) H [facility] BILIRUBIN,TOTAL 0.3 mg/dL (0.0-1.0) [facility] PLEASE NOTE:Total bilirubin results may be falselyelevated in patients taking Eltrombopag. AST (SGOT) 8 U/L (11-39) L [facility] ALT (SGPT) 18 U/L (12-78) [facility] GFR >60 ml/min/1.73m2 (>59) [facility] GFR ( AMER) >60 ml/min/1.73m2 (>59) [facility] GFR INTERPRETATION [facility] --NORMAL KIDNEY FUNCTION OR MILD DISEASE - GFR >OR= 60CHRONIC KIDNEY DISEASE - GFR 15 - 59RENAL FAILURE - GFR <15 Est. GFR calculation based on the MDRDstudy equation, which assumes a steadystate for creatinine. Est. GFR should notbe used for medication dosing. ID Date Data Source [id number] 03/14/2021 09:28:31 AM EDT [facility] Name Value Range Interpretation Code Description Data Chayo rce(s) Supporting Document(s) URIC ACID 4.0 mg/dL (2.6-6.0) [facility] ID Date Data Source [id number] 03/14/2021 09:28:31 AM EDT [facility] Name Value Range Interpretation Code Description Data Chayo rce(s) Supporting Document(s) LDH 202 U/L (84-246) [facility] paul VASQUES ID Date Data Source [id number] 03/14/2021 08:49:54 AM EDT [facility] Name Value Range Interpretation Code Description Data Chayo rce(s) Supporting Document(s) POC GLUCOSE 107 mg/dL (70-99) H [facility] [place] PERFORMED BY CLINICAL STAFF ID Date Data Source [id number] 03/13/2021 10:52:27 PM EDT [facility] Name Value Range Interpretation Code Description Data Chayo rce(s) Supporting Document(s) POC GLUCOSE 226 mg/dL (70-99) H [facility] [place] NOTIFIED PROVIDERNOTIFIED NURSEPERFORMED BY CLINICAL STAFF ID Date Data Source [id number] 03/13/2021 06:14:46 PM EDT [facility] PATIENT ABO/Rh B POSITIVEBLO OD BANK COMMENT BLOOD TYPE CONFIRMED. Name Value Range Interpretation Code Description Data Chayo rce(s) Supporting Document(s) ID Date Data Source [id number] 03/13/2021 06:12:36 PM EDT [facility] ANTIBODY SCREEN NEGATIVESPEC EXP DATE 03/16/2021TESTING SITE PERFORMED AT [address] [place] [address] Name Value Range Interpretation Code Description Data Chayo rce(s) Supporting Document(s) ID Date Data Source [id number] 03/13/2021 05:05:11 PM EDT [facility] Name Value Range Interpretation Code Description Data Chayo rce(s) Supporting Document(s) POC GLUCOSE 239 mg/dL (70-99) H [facility] [place] NOTIFIED PROVIDERPERFORMED BY CLINICA L STAFF ID Date Data Source [id number] 03/13/2021 02:55:00 PM EDT [facility] DATE OF EXAM: 03/13/2021ULTRASOUND OBSTE [...] artery. X1End of diagnostic report for accession: [id number] Interpreted: Shanna Cohn MDTranscribed: 03/13/2021 02:52 PMSigned: 03/13/2021 02:55 PM Shanna Cohn MD [facility] ACC # [id number] BILL # [id number] Name Value Range Interpretation Code Description Data Chayo rce(s) Supporting Document(s) ID Date Data Source [id number] 03/13/2021 02:55:00 PM EDT [facility] DATE OF EXAM: 03/13/2021ULTRASOUND OBSTE TRIC LIMITED [...] artery. X1End of diagnostic report for accession: [id number] Interpreted: Shanna Cohn MDTranscribed: 03/13/2021 02:52 PMSigned: 03/13/2021 02:55 PM Shanna Cohn MD [facility] ACC # [id number] BILL # [id number] Name Value Range Interpretation Code Description Data Chayo rce(s) Supporting Document(s) ID Date Data Source [id number] 03/13/2021 02:41:00 PM EDT [facility] DATE OF EXAM: 03/13/2021IOPHYSICAL PROF ILE [...] 8. X1End of diagnostic report for accession: [id number] Interpreted: Shanna Cohn MDTranscribed: 03/13/2021 02:40 PMSigned: 03/13/2021 02:41 PM Shanna Cohn MD [facility] ACC # [id number] BILL # [id number] Name Value Range Interpretation Code Description Data Chayo rce(s) Supporting Document(s) ID Date Data Source [id number] 03/13/2021 10:24:41 AM EDT [facility] Name Value Range Interpretation Code Description Data Chayo rce(s) Supporting Document(s) POC GLUCOSE 168 mg/dL (70-99) H [facility] PERFORMED BY CLINICAL STAFF ID Date Data Source [id number] 03/13/2021 07:34:29 AM EDT [facility] Name Value Range Interpretation Code Description Data Chayo rce(s) Supporting Document(s) URIC ACID 4.2 mg/dL (2.6-6.0) [facility] ID Date Data Source [id number] 03/13/2021 07:34:29 AM EDT [facility] Name Value Range Interpretation Code Description Data Chayo rce(s) Supporting Document(s) MAGNESIUM 4.4 mg/dL (1.7-2.4) H [facility] RESULT(S) CALLED TO AND READ BACK BYJUAN NORRIS IN LD AT 0733 ON 03/13/21.58522 ID Date Data Source [id number] 03/13/2021 07:34:29 AM EDT [facility] Name Value Range Interpretation Code Description Data Chayo rce(s) Supporting Document(s) LDH 156 U/L (84-246) [facility] ID Date Data Source [id number] 03/13/2021 07:34:29 AM EDT [facility] Name Value Range Interpretation Code Description Data Chayo rce(s) Supporting Document(s) SODIUM 139 mmol/L (136-145) [facility] POTASSIUM 4.1 mmol/L (3.6-5.2) [facility] CHLORIDE 108 mmol/L (100-108) [facility] CO2 22 mmol/L (22-31) [facility] ANION GAP 9 mmol/L (7-16) [facility] UREA NITROGEN 9 mg/dL (7-24) [facility] CREATININE 0.60 mg/dL (0.60-1.00) [facility] BUN/CREAT RATIO 15.0 RATIO (10.0-20.0) [facility] GLUCOSE 144 mg/dL (70-99) H [facility] CALCIUM 7.7 mg/dL (8.4-10.2) L [facility] TOTAL PROTEIN 5.9 g/dL (6.4-8.2) L [facility] ALBUMIN 2.6 g/dL (3.5-4.6) L [facility] GLOBULIN 3.3 g/dL (2.7-4.3) [facility] ALB/GLOB RATIO 0.8 RATIO [facility] ALKALINE PHOSPHATASE 151 U/L (45-117) H [facility] BILIRUBIN,TOTAL 0.2 mg/dL (0.0-1.0) [facility] PLEASE NOTE:Total bilirubin results may be falselyelevated in patients taking Eltrombopag. AST (SGOT) 9 U/L (11-39) L [facility] ALT (SGPT) 16 U/L (12-78) [facility] GFR >60 ml/min/1.73m2 (>59) [facility] GFR ( AMER) >60 ml/min/1.73m2 (>59) [facility] GFR INTERPRETATION [facility] --NORMAL KIDNEY FUNCTION OR MILD DISEASE - GFR >OR= 60CHRONIC KIDNEY DISEASE - GFR 15 - 59RENAL FAILURE - GFR <15 Est. GFR calculation based on the MDRDstudy equation, which assumes a steadystate for creatinine. Est. GFR should notbe used for medication dosing. ID Date Data Source [id number] 03/13/2021 06:47:11 AM EDT [facility] Name Value Range Interpretation Code Description Data Chayo rce(s) Supporting Document(s) WBC 14.6 10*3/uL (4.1-11.0) H [facility] RBC 4.25 10*6/uL (4.00-5.40) [facility] HGB 13.0 g/dL (12.0-16.0) [facility] HCT 39.0 % (36.0-47.0) [facility] MCV 91.7 fL (80.0-95.0) [facility] MCH 30.5 pg (27.0-32.0) [facility] MCHC 33.3 g/dL (32.0-36.0) [facility] RDW 14.2 % (10.5-14.5) [facility] PLT 172 10*3/uL (150-450) [facility] MPV 10.1 fL (7.1-10.7) [facility] ID Date Data Source [id number] 03/13/2021 06:10:47 AM EDT [facility] Name Value Range Interpretation Code Description Data Chayo rce(s) Supporting Document(s) POC GLUCOSE 141 mg/dL (70-99) H [facility] NOTIFIED PROVIDERNOTIFIED NURSEPERFORMED BY CLINICAL STAFF ID Date Data Source [id number] 03/13/2021 12:18:02 AM EDT [facility] Name Value Range Interpretation Code Description Data Chayo rce(s) Supporting Document(s) URIC ACID 4.1 mg/dL (2.6-6.0) [facility] ID Date Data Source [id number] 03/13/2021 12:18:02 AM EDT [facility] Name Value Range Interpretation Code Description Data Chayo rce(s) Supporting Document(s) LDH 149 U/L (84-246) [facility] ID Date Data Source [id number] 03/13/2021 12:18:02 AM EDT [facility] Name Value Range Interpretation Code Description Data Chayo rce(s) Supporting Document(s) SODIUM 138 mmol/L (136-145) [facility] POTASSIUM 4.2 mmol/L (3.6-5.2) [facility] CHLORIDE 106 mmol/L (100-108) [facility] CO2 19 mmol/L (22-31) L [facility] ANION GAP 13 mmol/L (7-16) [facility] UREA NITROGEN 12 mg/dL (7-24) [facility] CREATININE 0.72 mg/dL (0.60-1.00) [facility] BUN/CREAT RATIO 16.7 RATIO (10.0-20.0) [facility] GLUCOSE 200 mg/dL (70-99) H [facility] CALCIUM 8.2 mg/dL (8.4-10.2) L [facility] TOTAL PROTEIN 5.9 g/dL (6.4-8.2) L [facility] ALBUMIN 2.6 g/dL (3.5-4.6) L [facility] GLOBULIN 3.3 g/dL (2.7-4.3) [facility] ALB/GLOB RATIO 0.8 RATIO [facility] ALKALINE PHOSPHATASE 148 U/L (45-117) H [facility] BILIRUBIN,TOTAL 0.2 mg/dL (0.0-1.0) [facility] PLEASE NOTE:Total bilirubin results may be falselyelevated in patients taking Eltrombopag. AST (SGOT) 10 U/L (11-39) L [facility] ALT (SGPT) 17 U/L (12-78) [facility] GFR >60 ml/min/1.73m2 (>59) [facility] GFR ( AMER) >60 ml/min/1.73m2 (>59) [facility] GFR INTERPRETATION [facility] --NORMAL KIDNEY FUNCTION OR MILD DISEASE - GFR >OR= 60CHRONIC KIDNEY DISEASE - GFR 15 - 59RENAL FAILURE - GFR <15 Est. GFR calculation based on the MDRDstudy equation, which assumes a steadystate for creatinine. Est. GFR should notbe used for medication dosing. ID Date Data Source [id number] 03/13/2021 12:02:57 AM EDT [facility] Name Value Range Interpretation Code Description Data Chayo rce(s) Supporting Document(s) WBC 16.7 10*3/uL (4.1-11.0) H [facility] RBC 4.08 10*6/uL (4.00-5.40) [facility] HGB 12.6 g/dL (12.0-16.0) [facility] HCT 37.7 % (36.0-47.0) [facility] MCV 92.5 fL (80.0-95.0) [facility] MCH 31.0 pg (27.0-32.0) [facility] MCHC 33.5 g/dL (32.0-36.0) [facility] RDW 14.6 % (10.5-14.5) H [facility] PLT 180 10*3/uL (150-450) [facility] MPV 10.1 fL (7.1-10.7) [facility] ID Date Data Source [id number] 03/12/2021 09:07:42 PM EDT [facility] Name Value Range Interpretation Code Description Data Chayo rce(s) Supporting Document(s) POC GLUCOSE 251 mg/dL (70-99) H [facility] NOTIFIED PROVIDERNOTIFIED NURSEPERFORMED BY CLINICAL STAFF ID Date Data Source [id number] 03/12/2021 11:04:00 PM EDT [facility] DATE OF EXAM: 03/12/2021IOPHYSICAL PROF ILE [...] out of 8. Professional interpretation performed at [facility] .End of diagnostic report for accession: [id number] Interpreted: Waleska Jones MDTranscribed: 03/12/2021 11:02 PMSigned: 03/12/2021 11:04 PM Waleska Jones MD [facility] ACC # [id number] BILL # [id number] Name Value Range Interpretation Code Description Data Chayo rce(s) Supporting Document(s) ID Date Data Source [id number] 03/12/2021 11:04:00 PM EDT [facility] DATE OF EXAM: 03/12/2021IOPHYSICAL PROF ILE [...] out of 8. Professional interpretation performed at [facility] .End of diagnostic report for accession: [id number] Interpreted: Waleska Jones MDTranscribed: 03/12/2021 11:02 PMSigned: 03/12/2021 11:04 PM Waleska Jones MD [facility] # [id number] BILL # [id number] Name Value Range Interpretation Code Description Data Chayo rce(s) Supporting Document(s) ID Date Data Source [id number] 03/12/2021 11:36:27 AM EDT [facility] Name Value Range Interpretation Code Description Data Chayo rce(s) Supporting Document(s) POC GLUCOSE 176 mg/dL (70-99) H [facility] PERFORMED BY CLINICAL STAFF ID Date Data Source [id number] 03/12/2021 09:48:58 AM EDT [facility] Name Value Range Interpretation Code Description Data Chayo rce(s) Supporting Document(s) POC GLUCOSE 117 mg/dL (70-99) H [facility] PERFORMED BY CLINICAL STAFF ID Date Data Source [id number] 03/12/2021 12:03:00 AM EDT [facility] DATE OF EXAM: 1BIOPHYSICAL PROF ILE INDICATION: [...] out of 8. Professional interpretation performed at [facility] .End of diagnostic report for accession: [id number] Interpreted: Waleska Jones MDTranscribed: 03/12/2021 12:01 AMSigned: 03/12/2021 12:03 AM Waleska Jones MD [facility] ACC # [id number] BILL # [id number] Name Value Range Interpretation Code Description Data Chayo e(s) Supporting Document(s) ID Date Data Source [id number] 03/12/2021 12:03:00 AM EDT [facility] DATE OF EXAM: 03/11/2021IOPHYSICAL PROF ILE INDICATION: [...] out of 8. Professional interpretation performed at [facility] .End of diagnostic report for accession: [id number] Interpreted: Waleska Jones MDTranscribed: 03/12/2021 12:01 AMSigned: 03/12/2021 12:03 AM Waleska Jones MD [facility] ACC # [id number] BILL # [id number] Name Value Range Interpretation Code Description Data Chayo rce(s) Supporting Document(s) ID Date Data Source [id number] 03/11/2021 10:48:04 PM EDT [facility] Name Value Range Interpretation Code Description Data Chayo rce(s) Supporting Document(s) POC GLUCOSE 240 mg/dL (70-99) H [facility] [place] NOTIFIED PROVIDERNOTIFIED NURSEPERFORMED BY CLINICAL STAFF ID Date Data Source [id number] 03/11/2021 05:23:15 PM EDT [facility] Name Value Range Interpretation Code Description Data Chayo rce(s) Supporting Document(s) POC GLUCOSE 151 mg/dL (70-99) H [facility] [place] PERFORMED BY CLINICAL STAFF ID Date Data Source [id number] 03/11/2021 03:28:00 PM EDT [facility] DATE OF EXAM: 03/11/2021 OBSTETRICAL [...] no diastolic flow. Professional interpretation performed by [facility] Medical Imaging at [facility] [phone] of diagnostic report for accession: [id number] Interpreted: Nirmal Cleary MDTranscribed: 03/11/2021 03:18 PMSigned: 03/11/2021 03:28 PM Nirmal Cleary MD [facility] # [id number] BILL # [id number] Name Value Range Interpretation Code Description Data Chayo rce(s) Supporting Document(s) ID Date Data Source [id number] 03/11/2021 03:28:00 PM EDT [facility] DATE [...] no diastolic flow. Professional interpretation performed by [facility] Medical Imaging at [facility] [phone] of diagnostic report for accession: [id number] Interpreted: Nirmal Cleary MDTranscribed: 03/11/2021 03:18 PMSigned: 03/11/2021 03:28 PM Nirmal Cleary MD [facility] ACC # [id number] BILL # [id number] Name Value Range Interpretation Code Description Data Chayo rce(s) Supporting Document(s) ID Date Data Source [id number] 03/11/2021 03:28:00 PM EDT [facility] DATE OF EXAM: 03/11/2021 OBSTETRICAL SO [...] no diastolic flow. Professional interpretation performed by [facility] [employer] Medical Imaging at [facility] [phone] of diagnostic report for accession: [id number] Interpreted: Nirmal Cleary MDTranscribed: 03/11/2021 03:18 PMSigned: 03/11/2021 03:28 PM Nirmal Cleary MD [facility] # [id number] [facility] # [id number] Name Value Range Interpretation Code Description Data Chayo rce(s) Supporting Document(s) ID Date Data Source [id number] 03/11/2021 12:22:53 PM EDT [facility] Name Value Range Interpretation Code Description Data Chayo rce(s) Supporting Document(s) POC GLUCOSE 145 mg/dL (70-99) H [facility] PERFORMED BY CLINICAL STAFF ID Date Data Source [id number] 03/12/2021 10:56:21 AM EDT [facility] SPECIMEN DESCRIPTION URINE, COLLE CTION METHOD NOT SPECIFIEDCULTURE RESULTS >10,000 TO <100,000 CFU/ML BETA HEMOLYTIC STREPTOCOCCI GROUP B ISOLATEDBETA HEMOLYTIC STREPTOCOCCI ARE STILL UNIFORMLY SUSCEPTIBLE TOPENICILLIN, CEPHALOSPORINS AND VANCOMYCIN. REPORT STATUS FINAL 03/12/2021 Name Value Range Interpretation Code Description Data Chayo rce(s) Supporting Document(s) ID Date Data Source [id number] 03/11/2021 09:34:58 AM EDT [facility] Name Value Range Interpretation Code Description Data Chayo rce(s) Supporting Document(s) PROTEIN,URINE 71 mg/dL [facility] URINE PROTEIN MAY BE FALSELY ELEVATEDDUR ING TREATMENT WITH AMINOGLYCOSIDESDUE TO METHOD INTERFERENCE. CREATININE,URINE 61.10 mg/dL [facility] URINE TP/CR RATIO 1.16 RATIO (0.00-0.20) H [facility] ID Date Data Source [id number] 03/11/2021 09:31:27 AM EDT [facility] Name Value Range Interpretation Code Description Data Chayo rce(s) Supporting Document(s) URINE WBC (0-5) [facility] URINE RBC (0-2) [facility] EPITHELIAL CELLS 1+ [HPF] [facility] BACTERIA 1+ [HPF] [facility] MUCUS 1+ [HPF] [facility] HYALINE CASTS [facility] ID Date Data Source [id number] 03/11/2021 08:58:25 AM EDT [facility] Name Value Range Interpretation Code Description Data Chayo rce(s) Supporting Document(s) COLOR [facility] APPEARANCE [facility] SPEC GRAV URINE 1.028 (1.003-1.030) [facility] PH URINE 6.5 (5.0-7.5) [facility] LEUK ESTERASE (NEG) A [facility] NITRITE URINE (NEG) [facility] PROTEIN URINE 1+ (NEG) A [facility] GLUCOSE URINE 3+ (NEG) A [facility] KETONE URINE (NEG) [facility] UROBILINOGEN 0.2 mg/dL (0-1.0) [facility] BILIRUBIN URINE (NEG) [facility] BLOOD/HGB URINE 1+ (NEG) A [facility] ID Date Data Source [id number] 03/11/2021 08:22:18 AM EDT [facility] Name Value Range Interpretation Code Description Data Chayo rce(s) Supporting Document(s) POC GLUCOSE 126 mg/dL (70-99) H [facility] PERFORMED BY CLINICAL STAFF ID Date Data Source [id number] 03/11/2021 03:34:06 AM EDT [facility] Name Value Range Interpretation Code Description Data Chayo rce(s) Supporting Document(s) POC GLUCOSE 232 mg/dL (70-99) [facility] PERFORMED BY CLINICAL STAFF ID Date Data Source [id number] 03/10/2021 11:30:00 PM EDT [facility] Name Value Range Interpretation Code Description Data Chayo rce(s) Supporting Document(s) SARS coronavirus 2 RNA [Presence] in Res piratory specimen by KEILA with probe detection NOT DETECTED [facility] This lab was reported by [facility]. ID Date Data Source [id number] 03/11/2021 01:12:54 PM EDT [facility] Name Value Range Interpretation Code Description Data Chayo rce(s) Supporting Document(s) TREPONEMA IGG/IGM @ (NEG) [facility] ID Date Data Source [id number] 03/11/2021 08:30:41 AM EDT [facility] Name Value Range Interpretation Code Description Data Chayo rce(s) Supporting Document(s) SPECIMEN DESCRIPTION [facility] COVID19 RESULT (NDET) [facility]AS[facility] THIS ASSAY AMPLIFIES AND DETECTSTHE TARG ET RNA USING REAL-TIME PCR.TESTING PERFORMED ON THE [employer] COMMENT [facility] VASQU[facility] UNDER AN EMERGENCY USE AUTHORIZATION(EUA ) FOR THE DETECTION AND/OR DIAGNOSISOF THE VIRUS THAT CAUSES COVID-19.NEGATIVE 2019_NCOV RT-PCR RESULTS DONOT PRECLUDE 2019_NCOV INFECTION ANDSHOULD NOT BE USED THE SOLE BASISFOR PATIENT MANAGEMENT DECISIONS. FIRST TEST [facility] EMPLOYED IN HLTHCARE [facility] SYMPTOMATIC [facility] [place] DATE OF SYMPT ONSET [facility] HOSPITALIZED [facility] [place] ICU [facility] CONGREGATE CARE SET [facility]AS[facility] ID Date Data Source [id number] 03/11/2021 03:31:16 AM EDT [facility] SPEC EXP DATE 03/13/2021ATI ENT ABO/Rh B POSITIVEANTIBODY SCREEN NEGATIVETESTING SITE PERFORMED AT [address] [place] [address] Name Value Range Interpretation Code Description Data Chayo rce(s) Supporting Document(s) ID Date Data Source [id number] 03/10/2021 11:50:07 PM EDT [facility] Name Value Range Interpretation Code Description Data Chayo rce(s) Supporting Document(s) WBC 11.0 10*3/uL (4.1-11.0) [facility] RBC 4.58 10*6/uL (4.00-5.40) [facility] HGB 14.0 g/dL (12.0-16.0) [facility] HCT 41.8 % (36.0-47.0) [facility] MCV 91.3 fL (80.0-95.0) [facility] MCH 30.5 pg (27.0-32.0) [facility] MCHC 33.4 g/dL (32.0-36.0) [facility] RDW 14.2 % (10.5-14.5) [facility] PLT 166 10*3/uL (150-450) [facility] MPV 10.8 fL (7.1-10.7) H [facility] ID Date Data Source [id number] 03/04/2021 12:00:00 AM EDT [facility] Name Value Range Interpretation Code Description Data Chayo rce(s) Supporting Document(s) SARS coronavirus 2 Ag NEGATIVE [facility] This lab was ordered by [facility] and reported by [facility]. ID Date Data Source [id number] 03/01/2021 06:18:00 AM EDT [facility] Name Value Range Interpretation Code Description Data Chayo rce(s) Supporting Document(s) SARS-CoV-2 (COVID-19) RNA [Presence] in Respiratory specimen by KEILA with probe detection Not Detected [facility] This lab was ordered by [facility] and reported by [employer]. ID Date Data Source [id number] 02/25/2021 12:00:00 AM EDT [facility] Name Value Range Interpretation Code Description Data Chayo rce(s) Supporting Document(s) SARS coronavirus 2 Ag NEGATIVE [facility] This lab was ordered by [facility] and reported by [facility]. ID Date Data Source [id number] 02/22/2021 06:37:00 AM EDT [facility] Name Value Range Interpretation Code Description Data Chayo rce(s) Supporting Document(s) SARS-CoV-2 (COVID-19) RNA [Presence] in Respiratory specimen by KEILA with probe detection Not Detected [facility] This lab was ordered by [facility] and reported by [facility] ID Date Data Source [id number] 02/18/2021 12:00:00 AM EDT [facility] Name Value Range Interpretation Code Description Data Chayo rce(s) Supporting Document(s) SARS coronavirus 2 Ag NEGATIVE [facility] This lab was ordered by [facility] and reported by [facility]. ID Date Data Source [id number] 02/15/2021 07:40:00 AM EDT [facility] Name Value Range Interpretation Code Description Data Chayo rce(s) Supporting Document(s) SARS-CoV-2 (COVID-19) RNA [Presence] in Respiratory specimen by KEILA with probe detection Not Detected [facility] This lab was ordered by [facility] and reported by [employer]. ID Date Data Source [id number] 02/12/2021 12:00:00 AM EDT [facility] Name Value Range Interpretation Code Description Data Chayo rce(s) Supporting Document(s) SARS coronavirus 2 Ag NEGATIVE [facility] This lab was ordered by [facility] and reported by [facility]. ID Date Data Source [id number] 02/04/2021 12:00:00 AM EDT [facility] Name Value Range Interpretation Code Description Data Chayo rce(s) Supporting Document(s) SARS coronavirus 2 Ag NEGATIVE [facility] This lab was ordered by [facility] and reported by [facility]. ID Date Data Source [id number] 02/01/2021 05:58:00 AM EDT [facility] Name Value Range Interpretation Code Description Data Chayo rce(s) Supporting Document(s) SARS-CoV-2 (COVID-19) RNA [Presence] in Respiratory specimen by KEILA with probe detection Not Detected [facility] This lab was ordered by [facility] and reported by [facility] ID Date Data Source [id number] 01/25/2021 10:49:00 AM EDT [facility] Name Value Range Interpretation Code Description Data Chayo rce(s) Supporting Document(s) SARS-CoV-2 (COVID-19) RNA [Presence] in Respiratory specimen by KEILA with probe detection Not Detected [facility] This lab was ordered by [facility] and reported by [facility] ID Date Data Source [id number] 01/18/2021 06:00:00 AM EDT [facility] Name Value Range Interpretation Code Description Data Chayo rce(s) Supporting Document(s) SARS-CoV-2 (COVID-19) RNA [Presence] in Respiratory specimen by KEILA with probe detection Not Detected [facility] This lab was ordered by [facility] and reported by [facility] ID Date Data Source [id number] 01/16/2021 12:51:07 PM EDT [facility] Name Value Range Interpretation Code Description Data Chayo rce(s) Supporting Document(s) Progress Note [facility] [id number]/[id number] lbm [file] [id number] ID Date Data Source [id number] 01/14/2021 12:00:00 AM EDT [facility] Name Value Range Interpretation Code Description Data Chayo rce(s) Supporting Document(s) SARS coronavirus 2 Ag NEGATIVE [facility] This lab was ordered by [facility] and reported by [facility]. ID Date Data Source [id number] 01/04/2021 09:31:00 AM EDT [facility] Name Value Range Interpretation Code Description Data Chayo rce(s) Supporting Document(s) SARS-CoV-2 (COVID-19) RNA [Presence] in Respiratory specimen by KEILA with probe detection Not Detected [facility] This lab was ordered by [facility] and reported by [employer]. ID Date Data Source [id number] 12/28/2020 06:05:00 AM EDT [facility] Name Value Range Interpretation Code Description Data Chayo rce(s) Supporting Document(s) SARS-CoV-2 (COVID-19) RNA [Presence] in Respiratory specimen by KEILA with probe detection Not Detected [facility] This lab was ordered by [facility] and reported by [facility] ID Date Data Source [id number] 11/05/2020 12:00:00 AM EST [facility] Name Value Range Interpretation Code Description Data Chayo rce(s) Supporting Document(s) SARS coronavirus 2 Ag NEGATIVE [facility] This lab was ordered by [facility] and reported by [facility]. ID Date Data Source [id number] 11/02/2020 11:00:00 AM EST [facility] Name Value Range Interpretation Code Description Data Chayo rce(s) Supporting Document(s) SARS coronavirus 2 RNA Not Detected [facility] This lab was ordered by [facility] and reported by [facility]. ID Date Data Source [id number] 10/08/2020 05:11:00 AM EST [facility] Name Value Range Interpretation Code Description Data Chayo rce(s) Supporting Document(s) BHCG 658050.0 mIU/mL [facility] GESTATIONAL AGE HCG mIU/ML0.2 - 1 WEEK 5 - 501 - 2 WEEKS 50 - 5002 - 3 WEEKS 100 - 89088 - 4 WEEKS 500 - 054844 - 5 WEEKS 1000 - 133903 - 6 WEEKS 37135 - 4364255 - 8 WEEKS 36551 - 5715295 - 3 MONTHS 72972 - 556350 ADULT MALES, AGES 19 - 67 <= 1.0NON- FEMALES, AGES 18 - 62 1 - 3 ID Date Data Source [id number] 10/08/2020 04:42:00 AM EST [facility] Name Value Range Interpretation Code Description Data Chayo rce(s) Supporting Document(s) HCG QUAL SERUM Positive Negative [facility] ID Date Data Source [id number] 10/08/2020 04:44:00 AM EST [facility] Name Value Range Interpretation Code Description Data Chayo rce(s) Supporting Document(s) URINE COLOR Yellow [facility] UAPR Clear [facility] UGLU Negative NEGATIVE [facility] URINE BILIRUBIN Negative NEGATIVE [facility] UKET Negative NEGATIVE [facility] USG 1.020 1.010-1.025 [facility] UBLO 3+ NEGATIVE [facility] UpH 5.5 5.0-8.0 [facility] UPRO Negative Negative [facility] UUB 0.2 mg/dL 0.2-1.0 [facility] UNIT Negative Negative [facility] ULEU Trace Negative [facility] ID Date Data Source [id number] 10/08/2020 04:44:00 AM EST [facility] Name Value Range Interpretation Code Description Data Chayo rce(s) Supporting Document(s) URINE RBC 11-20 RBCs/HPF NONE SEEN [facility] URINE WBC 3-5 WBCs/HPF NONE SEEN [facility] URINE BACTERIA Few NONE SEEN [facility] URINE EPI. Few NONE SEEN [facility] ID Date Data Source [id number] 10/08/2020 04:26:00 AM EST [facility] Name Value Range Interpretation Code Description Data Chayo rce(s) Supporting Document(s) WBC 10.32 x10E3/uL 4.0-10.5 [facility] RBC 4.07 x10E6/uL 4.20-5.40 [facility] Hemoglobin 12.3 g/dL 12.0-16.0 [facility] Hematocrit 36.0 % 37.0-47.0 [facility] MCV 88.5 fL 81.0-99.0 [facility] MCH 30.2 pg 27.0-31.0 [facility] MCHC 34.2 g/dL 32.7-35.6 [facility] RDW 12.7 % 11.5-14.0 [facility] Platelet count 202 x10E3/uL 150-450 [facility] ital MPV 11.9 fl 6.9-9.5 [facility] Neutrophils 75.6 % 34-64 [facility] Lymphocytes 16.3 % 25-45 [facility] Monocytes 5.3 % 1.7-10.6 [facility] Eosinophils 1.6 % 0.4-7.0 [facility] Basophils 0.6 % 0.1-2.0 [facility] Imm. Gran. 0.6 % 0.1-2.0 [facility] Abs. Neutro. 7.81 x10E3/uL 1.2-7.6 [facility] Abs. Lymph. 1.68 x10E3/uL 1.0-3.5 [facility] Abs. [place]. 0.55 x10E3/uL 0.1-1.0 [facility] Abs. Eosin. 0.16 x10E3/uL 0.1-0.7 [facility] Abs. Baso. 0.06 x10E3/uL 0.0-0.1 [facility] Abs. Imm. Gran. 0.06 x10E3/uL 0.0-0.1 [facility] ANRBC% 0 % 0 [facility] ID Date Data Source [id number] 10/08/2020 05:29:00 AM EST [facility] Physician DocumentationClaxdawn-Agustin Clemons edical CenterName: Margie YanezksAge: 20 yrsSex: FemaleDOB: 2000MRN: [id number] Date: 10/08/2020Time: 03:43Account#: [id number] WINSTON: Out of town provider, -ED Physician Bright Christianson Summary:10/08/20 05:17Discharge OrderedLocation: Home Self Care sj7Feokjvb: new jz0Qvppqorr: have improved cn5Akecauvnl: Improved dx4Znydngfpo- Threatened zk7Wnnajmlx: th4- With: Private Physician- When: 2 - 3 days- Reason: Recheck today's complaints, Continuance of careDischarge Instructions:- Discharge Summary Sheet th4- , Threatened ep2Ghtck:- Medication Reconciliation th4- Medication Reconciliation Form - 2nd Copy th4HPI:09/2803:08 This 20 yrs old Black Female presents to ER via Private Vehicle with ke7wwqjrnvfjj of Vaginal Bleeding.04:08 Patient comes the ER today for evaluation of vaginal bleeding that wg7omeuqzj just prior to arrival. She describes the blood is dark.Patient is currently . She is a at approximately 9weeks. 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 Vitamin Oral2. Aspirin Oral- PMHx: None;- PSHx: None;- Immunization history: Flu vaccine is up to date.- Social history: Smoking status: Patient states former smoker oftobacco. ETOH status Denies use of ETOH.- Advance Directives:: None.ROS:04:10 Constitutional: Negative for chills, fever. Eyes: Negative for acute bq5ypwfksn. ENT: Negative for nasal discharge, rhinorrhea, sinuscongestion. [...] External exam: is normal, Speculum exam: scant jt1rocxeycl, no cervicitis, os that is closed, bimanual [...] signs, nurses notes, lab test result(s). ED tn0lrnrvs: Patient remained stable in the ER. Patient [...] for discharge. She will follow upwith her OPTICAL INSTRUMENT INSPECTOR. We discussed return precautions. Patient iswell-appearing, well-hydrated, not ill or toxic in any way. Bloodtype is B+..09/2802:58 Order name: CBC with diff; Complete Time: 04:32 :58 Order name: SHCG; Complete Time: 04:48 :58 Order name: UA; Complete Time: :48 :58 Order name: Saline Lock; Complete Time: 04:25 1/2803:58 Order name: Set Up Pelvic Exam; Complete Time: 04::58 Order name: Quantitave HCG; Complete Time: 05:df7Xbiyfwexb Medications:No medications were administeredSignatures:Dispatcher [employer] Chaitanya Kim MD MD lc4Imps, Rashard RN RN fw Name Value Range Interpretation Code Description Data Chayo rce(s) Supporting Document(s) ID Date Data Source [id number] 10/08/2020 05:29:00 AM EST [facility] Kelly terName: Margie YanezksAge: 20 yrsSex: FemaleDOB: 2000MRN: [id number] Date: 10/08/2020Time: 03:43Account#: [id number] WINSTON: Out of town provider, -Diagnosis: Threatened [...] Have you traveled to a location wi [facility] or ongoing COVID-19 community spread or outside [facility]? no Flu- like symptoms reported [...] sensationintact Range of motion intact in all extremities.OPTICAL INSTRUMENT INSPECTOR:04:02 1, Full Term 0, Premature 0, 0, [...] armband on for positive identification. [facility]. Bed in low position. Call light in [...] to home ambulatory. fw05:22 Condition: stable, Condition: xotucfxc81:22 Discharge instructions given to patient, Instructed on dischargeinstructions, follow up and referral plans. medication usage.05:22 Discharge Assessment: Patient verbalized understanding of dispositioninstructions. Patient has no functional deficits.05:29 Patient left the ED. fwSignatures:Chaitanya Christianson MD MD fe4SappRashard RN RN Name Value Range Interpretation Code Description Data Chayo rce(s) Supporting Document(s) ID Date Data Source [id number] 09/21/2020 09:58:00 AM EST [facility] [address] [place] [address] PHONE: [phone] FAX: [phone] Name .................. : MI Zheng Acct Number.................. : [id number] ROOM. ................. : TR-02 MR Number ................... : [id number] Stay type ............. : E/R Discharge Date......... ... : 09/18/20 Admit Date ......... : 09/18/20 Admit Phys .................... : COONEYNORM Date of ....... : 2000 Family Phys ................... : UNKNOWN Phone .................. : [phone] Age ................................ : 20 Film# .................. .:[id number] Sex ................................. : F Unsigned transcriptions are preliminary reports and do not represent a medical or legal document [place] [id number] COMPLETE:09/18/20 19:06 BAW 1801 Reason(s): vi ability [...] and Signed By Page 1 of 2 [facility] [address] [place] [address] PHONE: [phone] FAX: [phone] Name .................. : MI MARGIE Zheng Acct Number.................. : [id number] ROOM. ................. : TR-02 MR Number ................... : [id number] Stay type ............. : E/R Discharge Date......... ... : 09/18/20 Admit Date ......... : 09/18/20 Admit Phys .................... : COONEYNORM Date of ....... : 2000 Family Phys ................... : UNKNOWN Phone .................. : [phone] Age ................................ : 20 Film# .................. .:[id number] Sex ................................. : F Unsigned transcriptions are preliminary reports and do not represent a medical or legal [place] [id number] COMPLETE:09/18 19:06 BAW 1801 Reason(s): viability ectopic Bravo Sterling M.D. , 09/21/20 09:58, [place] Transcribe Initials: SAMAN , Transcribe Date: 09/19/20 02:55, Dictation Date: Copy for: TARA KAUR via fax Copy for: EMERGENCY DEPT via modem Copy for: 710 MED REC DISCHARGED Page 2 of 2 Name Value Range Interpretation Code Description Data Chayo rce(s) Supporting Document(s) ID Date Data Source [id number] 09/18/2020 01:52:00 PM EST [facility] 1 OrderSheet [facility] Emergency Department [address] [place] [address] Phone #: ext- [phone] 09/18/2020 13:40 Patient: MARGIE STARK Sex: F [...] STAT 15:10 09/18/2020 Ack'd: 1 5:23 15:37 JuliocesarTRANSVAGINAL Kinga Thomas RMargauxNMargaux SONI PA; R.NMargaux(IV?(No))(Oxygen?(No)) Reason for Study: viability ectopicMEDICATION/IV/DRIP/FLUID ORDERS 2 OrderSheet [facility] Emergency Department [address] [place] [address] Phone #: ext- [phone] 09/18/2020 13:40 Patient: MARGIE STARK Sex: F : 2000 Age: 20yOrder Description Priority Entered Acknowledged InitialedGENERAL ORDERSOrder Description Priority Entered Acknowledged InitialedNPO 14:07 09/18/2020 14:43 Maged THOMAS;[Electronically signed by Julissa Bolden R.N. (16:09/18/2020)][Electronically signed by Puneet Mercado (21:21 09/18/2020)][Electronically locked by Julissa Bolden R.N. (16:09/18/2020)] Name Value Range Interpretation Code Description Data Chayo rce(s) Supporting Document(s) ID Date Data Source [id number] 09/18/2020 01:52:00 PM [place] [address] Medication Reconciliation Report [facility] Emergency Department [address] [place] [address] Phone #: ext- [phone] 09/18/2020 13:40 Patient: [...] rce(s) Supporting Document(s) ID Date Data Source [id number] 09/18/2020 01:52:00 PM [place] [address] Medication Administration Record [facility] Emergency Department [address] [place] [address] Phone #: ext- [phone] 09/18/2020 13:40 Patient: MARGIE STARK Sex: F : 2000 Age: 20yWeight: 87.5 kgHeight/Length: 66 inBMI: 31.2ALLERGIES: NoneDate/Time Medication Administered Medication Ordered Name Value Range Interpretation Code Description Data Chayo rce(s) Supporting Document(s) ID Date Data Source [id number] 09/18/2020 01:52:00 PM EST [facility] 1 General Instructions [facility] Emergency Department [address] [place] [address] Phone #: ext- [phone] 09/18/2020 13:40 Patient: MARGIE STARK Sex: F [...] by patient. ADDITIONAL INFORMATIONPregnancy 2 General Instructions [facility] Emergency Department [address] [place] [address] Phone #: ext- [phone] 09/18/2020 13:40 Patient: [...] baby is born healthy: 3 General Instructions [facility] Emergency Department [address] [place] [address] Phone #: ext- [phone] 09/18/2020 13:40 Patient: [...] You can seeyour family provider, a specialist (knot saw operator), a midwi fe, or a primary care clinic.When to seek medical adviceCall your healthcare provider right away if any of these occur: Vaginal bleeding Pain in your belly (abdomen) or back that is moderate or severe Lots of vomiting, or you can't keep any fluids down for 6 hours 4 General Instructions [facility] Emergency Department [address] [place] [address] Phone #: ext- [phone] 09/18/2020 13:40 Patient: MARGIE STARK Sex: F : 2000 Age: 20y Burning feeling when you urinate Headache, dizziness, or rapid weight gain Fever Vision changes or blurred vision [phone] [place] [address], [place] [address]. All rights reserved. This information is not intended as asubstitute for professional medical care. Always follow your healthcare professional's instructions. You have been given the following additional information: , New Dx(Electronically signed by WILLIAM Domingo 09/18/2020 21:21) Name Value Range Interpretation Code Description Data Chayo rce(s) Supporting Document(s) ID Date Data Source [id number] 09/18/2020 01:52:00 PM EST [facility] 1 Clinical Report - Nurses [facility] Emergency Department [address] [place] [address] Phone #: ext- [phone] 09/18/2020 13:40 Patient: [...] (3 days ago). ( runny nose, headache).Treatment CONFERENCE CENTER MANAGER:None.SEPSIS SCREEN: SIRS SCREEN NEGATIVE. SEPSIS SCREEN NEGATIVE. [...] or CRE. 2 Clinical Report - Nurses [facility] Emergency Department [address] [place] [address] Phone #: kng- [phone] 09/18/2020 13:40 Patient: MARGIE STARK Sex: F [...] patient identifiers 3 Clinical Report - Nurses [facility] Emergency Department [address] [place] [address] Phone #: ext- [phone] 09/18/2020 13:40 Patient: MARGIE STARK Sex: F : 2000 Age: 20y checked. Call light placed in reach. Side rails up x 2. Bed placed in lowest position. Brakes of bed on. --15:26 09/18/20 Kinga Gandara R.N. Patient returned from sonogram by wheelchair with mask and interventional radiology tech. --15:41 09/18/20 Kinga Gandara R.N. 15:45 09/18/20. BP: 138/60. MAP: 86. HR: 62. RR: 16. O2 saturation: 99% on room air. --15:45 09/18/20 Kinga Gandara R.N.DISPOSITION / DISCHARGE No learning barriers present. Patient verbalized understanding. ( follow up with md for repeat beta). Written instructions not provided in Kittitian. The patient was discharged home and accompanied [...] rce(s) Supporting Document(s) ID Date Data Source [id number] 09/18/2020 01:52:00 PM EST [facility] 1 Clinical Report - Physicians/Mid Levels [facility] Emergency Department [address] [place] [address] Phone #: ext- [phone] 09/18/2020 13:40 Patient: [...] normal. 2 Clinical Report - Physicians/Mid Levels [facility] Emergency Department [address] [place] [address] Phone #: ext- [phone] 09/18/2020 13:40 Patient: MARGIE STARK Sex: F [...] (NORMAL: ALEYDA COMMENT: 3 Clinical Report - Physicians/[facility] Emergency Department [address] [place] [address] Phone #: mso- [phone] 09/18/2020 13:40 Patient: MARGIE STARK Sex: F [...] Male GFR Interprentation 20-49 yrs >60 mL/min Ksebzt31-54 yrs >56 mL/min Normal 60-69 yrs >49 mL/min Normal 70-79yrs>42 mL/min Normal 80 and above >35 mL/min Normal Female GFRInterpretation 20-39 yrs >60 mL/min Normal 40-49 yrs >58 mL/minNormal 50-59 yrs >51 mL/min Normal 60-69 yrs >45 mL/min Kelgxj98-80 yrs >39 mL/min Normal 80 and above >32 mL/min NormalType Rh: (ROOPA: 09/18/2020 14:14) ( MsgRcvd 09/18/2020 15:40) Final results Test Result Flag Units (Reference) ABO GROUP B RH TYPE POSITIVE { ABO/RH REENTER B POSITIVEUrinalysis: (ROOAP: 09/18/2020 14:14) ( MsgRcvd 09/18/2020 15:57) Final results Test Result Flag Units (Reference) URINALYSIS URINALYSIS SOURCE R COLOR yellow (NORMAL: Yello CLARITY hazy (NORMAL: Clear SPEC GRAVITY 1.015 (1.001 - 1.030 pH 6 (5 - 9) GLUCOSE NORM (NORMAL: Negat BILIRUBIN NEG (NORMAL: Negat KETONE NEG (NORMAL: Negat PROTEIN NEG (NORMAL: Negat NITRITE NEG (NORMAL: Negat 4 Clinical Report - Physicians/Mid Levels [facility] Emergency Department [address] [place] [address] Phone #: ext- [phone] 09/18/2020 13:40 Patient: [...] Test Result Flag Units (Reference) HCG QUANT 12723.0 mIU/mL Interpretation: Less than 5 mU/mL: Negative 6-10 mU/mL: Borderline (suggest repeat in 48 hours) >10: Positive Approx HCG range (mU/mL) Weeks post LMP 5.4-708 mU/mL 3-4 Weeks 217-34217 mU/mL 5-6 Weeks 4059-506315 mU/mL 7-8 Weeks 49058-254162 mU/mL 9-10 Weeks 90342-48903 mU/mL 12-14 Weeks 71274-21722 mU/mL 15-16 Weeks 8240-60048 mU/mL 17-18 Weeks . Note - Tests: [...] Discharged home in good and improved condition (16:Sep 18 2020).CLINICAL IMPRESSION First trimester ; positive [...] if 5 Clinical Report - Physicians/Mid Levels [facility] Emergency Department [address] [place] [address] Phone #: [phone] 09/18/2020 13:40 Patient: MARGIE STARK Sex: F [...] rce(s) Supporting Document(s) ID Date Data Source [id number] 09/22/2020 09:55:00 AM EST [facility] Name Value Range Interpretation Code Description Data Chayo rce(s) Supporting Document(s) CULTURE URINE [facility] _CULTURE URINE_$$[id number]$$[id number]$$565493$$[id number]$$818135$$864750$$612416$$468899$$449542$$ 299205$$007475$$700251$$987154$$099754$$470947$$708772$$453998$$329356$$367228$$ 572688$$249837$$824159$$575927$$051776$$657238$$[id number]$$[id number] -- Continued on next page --Patient: MI Zheng Order: [id number] Page 2Culture: CULTURE URINE Status: Final ====$$[id number]$$[id number] DATE/TIME: 09/22/2020 08:08Culture: CULTURE URINE Status: FinalUrine Culture,Comprehensive: O1Ryrva urogenital flora10,000-25,000 colony forming units per mLIsolate [...] group B Flag: AP1 [facility]: [facility] JACOBSEN #: [id number] [address] [id number] [facility] [id number] Director : Tod Posey MD NPI #:Trading Floor Operator : [email or web address] REF ID Date Data Source [id number] 09/22/2020 06:15:00 AM [facility] Name Value Range Interpretation Code Description Data Chayo rce(s) Supporting Document(s) Chlamydia trachomatis rRNA [Presence] in Unspecified specimen by Probe and target amplification method Negative Negative [facility] Neisseria gonorrhoeae rRNA [Presence] in Unspecified specimen by Probe and target amplification method Negative Negative [facility] ID Date Data Source [id number] 09/18/2020 03:57:00 PM EST [facility] Name Value Range Interpretation Code Description Data Chayo rce(s) Supporting Document(s) URINALYSIS [facility] sonu URINALYSIS SOURCE R [facility] COLOR yellow NORMAL: Yellow [facility] CLARITY hazy NORMAL: Clear [facility] Specific gravity of Urine by Test strip 1.015 1.001 - 1.030 [facility] 6 5 - 9 [facility] Gl[facility] [Mass/volume] in Urine by Test strip NORM NORMAL: Negat [facility] Bilirubin.total [Presence] in Urine by Test strip NEG NORMAL: Negative [facility] Ketones [Presence] in Urine by Test strip NEG NORMAL: Negative [facility] Protein [Mass/volume] in Urine by Test strip NEG NORMAL: Negat [facility] Nitrite [Presence] in Urine by Test strip NEG NORMAL: Negative [facility] BLOOD NEG NORMAL: Negative [facility] Leukocyte esterase [Presence] in Urine by Test strip 500 ALEYDA L: Negative A [facility] Urobilinogen [Mass/volume] in Urine by Test strip NOR less concha n 1.0 mg/dL [facility] MICROSCOPIC See Below [facility]osp ital WBC 3 - 5 NORMAL: NONE SEEN [facility] Erythrocytes [#/volume] in Urine by Test strip 1 - 3 NORMAL: NON E SEEN [facility] EPITHELIAL MODERATE NORMAL: NONE SEEN A [facility] Bacteria [Presence] in Urine sediment by Light microscopy 1+ SMALL NORMAL: NONE SEEN [facility] ID Date Data Source [id number] 09/18/2020 03:40:00 PM [facility] Name Value Range Interpretation Code Description Data Chayo rce(s) Supporting Document(s) ABO group [Type] in Blood B [facility] Rh [Type] in Blood POSITIVE [facility] { ABO/RH REENTER B POSITIVE ID Date Data Source [id number] 09/18/2020 03:09:00 PM [facility] Name Value Range Interpretation Code Description Data Chayo rce(s) Supporting Document(s) Choriogonadotropin.intact [Units/volume] in Serum or Plasma 30311.0 mIU/mL [facility] Interpr etation: Less than 5 mU/mL: Negative 6-10 mU/mL: Borderline (suggest repeat in 48 hours) >10: Positive Approx HCG range (mU/mL) Weeks post LMP 5.4-708 mU/mL 3-4 Weeks 217-86998 mU/mL 5-6 Weeks 4059-116075 mU/mL 7-8 Weeks 87214-929106 mU/mL 9-10 Weeks 58038-35603 mU/mL 12-14 Weeks 21769-70024 mU/mL 15-16 Weeks 8240- 42552 mU/mL 17-18 Weeks ID Date Data Source [id number] 09/18/2020 03:09:00 PM [facility] Name Value Range Interpretation Code Description Data Chayo rce(s) Supporting Document(s) COMPREHENSIVE METABOLIC PANEL [facility] COMPREHENSIVE METABOLIC PANEL Sodium [Moles/volume] in Serum or Plasma 132 mEq/L 134 - 153 L [facility] Potassium [Moles/volume] in Serum or Plasma 4.1 mEq/L 3.6 - 5.0 [facility] Chloride [Moles/volume] in Serum or Plasma 100 mEq/L 98 - 107 [facility] Carbon dioxide, total [Moles/volume] in Serum or Plasma 25 MEQ/L 22 - 30 [facility] Glucose [Mass/volume] in Serum or Plasma 98 MG/DL 65 - 110 [facility] BUN 8 MG/DL 7 - 21 [facility] Creatinine [Mass/volume] in Serum or Plasma 0.7 MG/DL 0.7 - 1.5 [facility] BUN/CREAT 11 8 - 27 [facility] Protein [Mass/volume] in Serum or Plasma 6.7 G/DL 6.3 - 8.2 [facility] Albumin [Mass/volume] in Serum or Plasma 4.3 G/DL 3.9 - 5.0 [facility] Globulin [Mass/volume] in Serum by calculation 2.4 GM/DL 2.4 - 3.2 [facility] A/G RATIO 1.8 0.8 - 2.0 [facility] Calcium [Mass/volume] in Serum or Plasma 9.4 MG/DL 8.4 - 10.2 [facility] Bilirubin.total [Mass/volume] in Serum or Plasma <0.7 MG/DL 0.2 - 1.3 [facility] Alkaline phosphatase [Enzymatic activity/volume] in Serum or Plasma 48 U/L 38 - 126 [facility] Aspartate aminotransferase [Enzymatic activity/volume] in Serum or Plasma 12 U/L 5 - 40 [facility] Alanine aminotransferase [Enzymatic activity/volume] in Seru m or Plasma 13 U/L 7 - 56 [facility] Anion gap 3 in Serum or Plasma 7.0 mmol/L 8.0 - 16.0 L [facility] AGE 20 yrs [facility] NON-AA GFR >60 mL/min [facility] ital AFR AMER GFR >60 mL/min [facility] Male GFR In terprentation 20-49 [...] >32 mL/min Normal ID Date Data Source [id number] 09/18/2020 02:34:00 PM EST [facility] Name Value Range Interpretation Code Description Data Chayo rce(s) Supporting Document(s) CBC W/AUTOMATED DIFF [facility] COMPLETE BLOOD COUNT Leukocytes [#/volume] in Blood by Automated count 6.8 10^3/uL 4.2 - 1 1.0 [facility] Erythrocytes [#/volume] in Blood by Automated count 4.23 10^6/uL 4. 20 - 5.40 [facility] Hemoglobin [Mass/volume] in Blood 13.0 g/dL 12.0 - 16.0 [facility] Hematocrit [Volume Fraction] of Blood by Automated count 38.2 % 3 7.0 - 47.0 [facility] Erythrocyte mean corpuscular volume [Entitic volume] by Auto mated count 90.3 fL 81.0 - 101 [facility] Erythrocyte mean corpuscular hemoglobin [Entitic mass] by Automated count 30.7 pg 27.0 - 34.0 [facility] Erythrocyte mean corpuscular hemoglobin concentration [Mass/volume] by Automated count 34.0 g/dL 31.0 - 36.0 [facility] Erythrocyte distribution width [Ratio] by Automated count 12.5 % 11.5 - 14.5 [facility] Platelets [#/volume] in Blood by Automated count 214 10^3/uL 150 - 45 0 [facility] Platelet mean volume [Entitic volume] in Blood by Automated count 10.9 fL 7.4 - 10.4 H [facility] Neutrophils/100 leukocytes in Blood by Automated count 68.3 % 37. 0 - 80.0 [facility] Lymphocytes/100 leukocytes in Blood by Manual count 22.9 % 25.0 - 40.0 L [facility] Monocytes/100 leukocytes in Blood by Automated count 6.9 % 3.0 - 8.0 [facility] Eosinophils/100 leukocytes in Blood by Automated count 0.9 % 0.0 - 7.0 [facility] Basophils/100 leukocytes in Blood by Automated count 0.6 % 0.0 - 2.5 [facility] %IG 0.4 % 0.0 - 0.0 H [facility] %NRBC 0.0 % 0.0 - 0.0 [facility] Neutrophils [#/volume] in Blood by Automated count 4.64 10^3/uL 2.00 - 6.90 [facility] Lymphocytes [#/volume] in Blood by Automated count 1.56 10^3/uL 0.60 - 3.40 [facility] Monocytes [#/volume] in Blood by Automated count 0.47 10^3/uL 0.00 - 0.90 [facility] Eosinophils [#/volume] in Blood by Automated count 0.06 10^3/uL 0.00 - 0.70 [facility] Basophils [#/volume] in Blood by Automated count 0.04 10^3/uL 0.00 - 0.20 [facility] #IG 0.03 10^3/uL 0.00 - 0.10 [facility] #NRBC 0.00 10^3/uL 0.00 - 0.00 [facility] MANUAL DIFF SEE BELOW [facility] ital Segmented neutrophils/100 leukocytes in Blood by Manual count 74 % 37 - 80 [facility] %LYMPH 22 % 25 - [address] [facility] al %MONO 4 % 3 - 8 [facility] al RBC MORPH SEE BELOW [facility] al Anisocytosis [Presence] in Blood by Light microscopy 1+ ALEYDA L: NONE SEEN A [facility] { SICKLE CELL (NORMAL: NONE SEEN ) Platelet adequacy [Presence] in Blood by Light microscopy NORMAL NORMAL: NORMAL [facility] COMMENT: Procedure Social History Code Duration Value Status Description Data Source(s ) Smoking 04/07/2021 04:33:00 PM EDT Denies Ever Smoked complete d Denies Ever Smoked [facility] Smoking 12/02/2020 12:00:00 AM EDT Former Smoker completed Former Smoker [email or web address] (Formerly [facility]) Vital Signs ID Date Data Source UNK Name Value Range Interpretation Code Description Data Source(s) Systolic blood pressure 127 mm[Hg] Normal (applies t o non-numeric results) 127 mm[Hg] [facility] Diastolic blood pressure 80 mm[Hg] Normal (applies to non-numeric results) 80 mm[Hg] [facility] Heart rate 99 min Normal (applies to non-numeric resul ts) 99 min [facility] Deprecated Oxygen saturation in Capillary blood by Oximetry 97 % Normal (applies to non-numeric results) 97 % [facility] Respiratory rate 18 min Normal (applies to non-numeric results) 18 min [facility] Body mass index (BMI) [Ratio] 37.9 kg/m2 No rmal (applies to non-numeric results) 37.9 kg/m2 [facility] Body height 167.56432364644221 cm Normal (applies to non-numeric results) 167.16335322191641 cm [facility] Body temperature 36.9 polly Normal (applies to non-numeric results) 36.9 polly [facility] Body weight Measured 235 [lb_av] Normal (applies to n on-numeric results) 235 [lb_av] [facility] Body weight 232.4 [lb_av] 232.4 [lb_av] W1 ([facility]) Body height [in_i] W1 ([facility]) Body mass index (BMI) [Ratio] 37.51 kg/m2 37.51 kg/m2 [facility] (Formerly [facility]) Systolic blood pressure 140 mm[Hg] 140 mm[Hg] e CW1 (Formerly [facility]) Diastolic blood pressure 72 mm[Hg] 72 mm[Hg] eCW1 (Formerly [facility]) ID Date Data Source [id number] 01/16/2021 12:51:07 PM EDT [facility] Name Value Range Interpretation Code Description Data Source(s) Body height Measured 66 in 66 in Upst [facility] WEIGHT RECORDED 238 lb 238 lb [facility] Patient Treatment Plan of Care Planned Activity Planned Date Details Description Data Source (s) Ketoconazole 20 MG/ML Medicated Shampoo 12/02/2020 12:00:00 AM EDT eCW1 (Formerly [facility]) Triamcinolone Acetonide 1 MG/ML Topical Cream 12/02/2020 12:00:00 A M EDT eCW1 (Formerly [facility])
[2021-08-04 10:25] LABS: GC DNA AMPLIFICATION NEGATIVE (NEGATIVE)
[2021-08-04 10:45] VITALS: BP 152/82
== END 2021-08-04 10:45 | disposition home or self-care (01) ==
LOC: M ED 06:36
DX: N89.8 Other specified noninflammatory disorders of vagina (principal); Z20.2 Contact with and (suspected) exposure to infections with a predominantly sexual mode of transmission; Z86.19 Personal history of other infectious and parasitic diseases

== ENCOUNTER 2021-09-11 01:40 | Emergency (ER) | payer OTHER ==
[~2021-09-11] VITALS: Ht 175.3 cm; Wt 90.9 kg
[2021-09-11] MEDS ORDERED: ACETAMINOPHEN TAB 650MG DOSE (2X325MG) PO ONE (03:00)
[2021-09-11 03:33] VITALS: BP 155/101
== END 2021-09-11 03:35 | disposition home or self-care (01) ==
LOC: M ED 01:40
DX: S09.90XA Unspecified injury of head, initial encounter (principal); Y04.8XXA Assault by other bodily force, initial encounter; Y07.01 Husband, perpetrator of maltreatment and neglect; Y92.89 Other specified places as the place of occurrence of the external cause; I10 Essential (primary) hypertension; F17.210 Nicotine dependence, cigarettes, uncomplicated